=== PATIENT | female | born 1945 | race American Indian/Alaskan Native ===

== ENCOUNTER 2017-03-02 15:57 | Emergency (ER) | payer MEDICARE ==
[2017-03-02 16:52] LABS: Alanine Aminotransferase 8 units/L (7-56); Albumin/Globulin Ratio 0.9 %; Alkaline Phosphatase 71 units/L (35-129); Anion Gap 20 mmol/L; Blood Urea Nitrogen 10 mg/dL (7-17); Calcium 8.9 mg/dL (8.4-10.2); Carbon Dioxide 26 mmol/L (22-30); Glucose 320 mg/dL (65-100); Lipase 14 units/L (13-60); Potassium 4.2 mmol/L (3.6-5.0); Sodium 133 mmol/L (137-145); Total Protein 8.4 g/dL (6.3-8.2)
[2017-03-02 17:13] LABS: Hemoglobin 12.9 gm/dl (10.1-14.3); Mean Corpuscular HGB Conc 34 % (30-34); Mean Corpuscular Hemoglobin 29 pg (28-32); Mean Corpuscular Volume 87 fl (79-97); Platelet Count 232 K/mm3 (140-440); Red Blood Count 4.39 M/mm3 (3.65-5.03); White Blood Count 6.6 K/mm3 (4.5-11.0)
[2017-03-02 17:20] LABS: Basophils % (Auto) 0.5 % (0.0-1.8); Eosinophils % (Auto) 1.4 % (0.0-4.3)
[2017-03-02 17:22] LABS: INR 1.1 (0.87-1.13)
[2017-03-02 17:23] LABS: Partial Thromboplastin Time 31.9 Sec. (24.2-36.6)
--- NOTE | 2017-03-04 01:21 | ED Elopement Review ---
ED Pt Elopement review - Results review Lab results: Laboratory Tests 03/02/17 03/02/17 03/02/17 16:13 16:14 16:15 WBC 6.6 RBC 4.39 Hgb 12.9 Hct 38.0 MCV 87 MCH 29 MCHC 34 RDW 13.0 L Plt Count 232 Lymph % (Auto) 28.4 [place] % (Auto) 8.0 H Eos % (Auto) 1.4 Baso % (Auto) 0.5 Lymph # 1.9 [place] # 0.5 Eos # 0.1 Baso # 0.0 Total Counted Cancelled Seg Neutrophils % 61.7 Seg Neuts % (Manual) Cancelled Band Neutrophils % Cancelled Lymphocytes % (Manual) Cancelled Reactive Lymphs % (Man) Cancelled Monocytes % (Manual) Cancelled Eosinophils % (Manual) Cancelled Basophils % (Manual) Cancelled Metamyelocytes % Cancelled Myelocytes % Cancelled Promyelocytes % Cancelled Blast Cells % Cancelled Nucleated RBC % Cancelled Seg Neutrophils # 4.1 Seg Neutrophils # Man Cancelled Band Neutrophils # Cancelled Lymphocytes # (Manual) Cancelled Abs React Lymphs (Man) Cancelled Monocytes # (Manual) Cancelled Eosinophils # (Manual) Cancelled Basophils # (Manual) Cancelled Metamyelocytes # Cancelled Myelocytes # Cancelled Promyelocytes # Cancelled Blast Cells # Cancelled WBC Morphology Cancelled Hypersegmented Neuts Cancelled Hyposegmented Neuts Cancelled Hypogranular Neuts Cancelled Hypersegmented Polys Cancelled Smudge Cells Cancelled Toxic Granulation Cancelled Toxic Vacuolation Cancelled Dohle Bodies Cancelled Pelger-Huet Anomaly Cancelled Emily Rods Cancelled Platelet Estimate Cancelled Clumped Platelets Cancelled Plt Clumps, EDTA Cancelled Large Platelets Cancelled Giant Platelets Cancelled Platelet Satelliting Cancelled Plt Morphology Comment Cancelled RBC Morphology Cancelled Dimorphic RBCs Cancelled Polychromasia Cancelled Hypochromasia Cancelled Poikilocytosis Cancelled Basophilic Stippling Cancelled Anisocytosis Cancelled Microcytosis Cancelled Macrocytosis Cancelled Spherocytes Cancelled Pappenheimer Bodies Cancelled Sickle Cells Cancelled Target Cells Cancelled Tear Drop Cells Cancelled Ovalocytes Cancelled Stomatocytes Cancelled Helmet Cells Cancelled [place] Bodies Cancelled [place] Rings Cancelled [place] Cells Cancelled Bite Cells Cancelled Crenated Cell Cancelled Elliptocytes Cancelled Acanthocytes (Spur) Cancelled Rouleaux Cancelled Hemoglobin C Crystals Cancelled Schistocytes Cancelled Malaria parasites Cancelled Fredo Bodies Cancelled Hem Pathologist Commnt Cancelled PT INR APTT Sodium Potassium Chloride Carbon Dioxide Anion Gap BUN Creatinine Estimated GFR BUN/Creatinine Ratio Glucose POC Glucose 346 H Calcium Total Bilirubin AST ALT Alkaline Phosphatase Total Protein Albumin Albumin/Globulin Ratio Lipase Blood Type O POSITIVE Antibody Screen TNR JIMMY Antibody Screen Negative 03/02/17 03/02/17 16:15 16:15 WBC RBC Hgb Hct MCV MCH MCHC RDW Plt Count Lymph % (Auto) [place] % (Auto) Eos % (Auto) Baso % (Auto) Lymph # [place] # Eos # Baso # Total Counted Seg Neutrophils % Seg Neuts % (Manual) Band Neutrophils % Lymphocytes % (Manual) Reactive Lymphs % (Man) Monocytes % (Manual) Eosinophils % (Manual) Basophils % (Manual) Metamyelocytes % Myelocytes % Promyelocytes % Blast Cells % Nucleated RBC % Seg Neutrophils # Seg Neutrophils # Man Band Neutrophils # Lymphocytes # (Manual) Abs React Lymphs (Man) Monocytes # (Manual) Eosinophils # (Manual) Basophils # (Manual) Metamyelocytes # Myelocytes # Promyelocytes # Blast Cells # WBC Morphology Hypersegmented Neuts Hyposegmented Neuts Hypogranular Neuts Hypersegmented Polys Smudge Cells Toxic Granulation Toxic Vacuolation Dohle Bodies Pelger-Huet Anomaly Emily Rods Platelet Estimate Clumped Platelets Plt Clumps, EDTA Large Platelets Giant Platelets Platelet Satelliting Plt Morphology Comment RBC Morphology Dimorphic RBCs Polychromasia Hypochromasia Poikilocytosis Basophilic Stippling Anisocytosis Microcytosis Macrocytosis Spherocytes Pappenheimer Bodies Sickle Cells Target Cells Tear Drop Cells Ovalocytes Stomatocytes Helmet Cells [place] Bodies [place] Rings Zuleika Cells Bite Cells Crenated Cell Elliptocytes Acanthocytes (Spur) Rouleaux Hemoglobin C Crystals Schistocytes Malaria parasites Fredo Bodies Hem Pathologist Commnt PT 14.1 INR 1.10 APTT 31.9 Sodium 133 L Potassium 4.2 Chloride 91.0 L Carbon Dioxide 26 Anion Gap 20 BUN 10 Creatinine 0.8 Estimated GFR > 60 BUN/Creatinine Ratio 12.50 Glucose 320 H POC Glucose Calcium 8.9 Total Bilirubin 0.80 AST 11 ALT 8 Alkaline Phosphatase 71 Total Protein 8.4 H Albumin 4.0 Albumin/Globulin Ratio 0.9 Lipase 14 Blood Type Antibody Screen JIMMY Antibody Screen - Call Back decision Pt Call Back Decision: Pt to F/U with PMD
== END 2017-03-03 00:25 | disposition left against medical advice (07) ==
LOC: ED 15:57
DX: K92.1 Melena (principal); R10.9 Unspecified abdominal pain; E11.9 Type 2 diabetes mellitus without complications; I10 Essential (primary) hypertension; Z88.8 Allergy status to other drugs, medicaments and biological substances; Z53.21 Procedure and treatment not carried out due to patient leaving prior to being seen by health care provider
CPT/HCPCS: 36415; 80053; 82962; 83690; 85025; 85610; 85730; 86850; 86900; 86901

== ENCOUNTER 2018-07-22 05:55 | Day surgery (SDC) | payer MEDICARE ==
[2018-07-22] MEDS ORDERED: NACL 0.9% 1000 ML 1,000 ML IV SCH (05:58)
[2018-07-22] MEDS ORDERED: VERSED IV NR (07:08)
[2018-07-22] MEDS ORDERED: PEPCID IV NR (07:08)
[2018-07-22] MEDS ORDERED: XYLOCAINE MPF 2% ONE (07:54)
[2018-07-22] MEDS ORDERED: DIPRIVAN 10 MG/ML IV ONE (07:54)
[2018-07-22] MEDS ORDERED: SUBLIMAZE ONE (07:54)
--- NOTE | 2018-07-22 07:56 | Anesthesia Consultation ---
Anesthesia Consult and Med Hx Date of service: 07/22/18 - Airway Anesthetic Teeth Evaluation: Good (some missing teeth) ROM Head & Neck: Adequate Mental/Hyoid Distance: Adequate Mallampati Class: Class III Intubation Access Assessment: Possibly Difficult - Pre-Operative Health Status ASA Pre-Surgery Classification: ASA3 Proposed Anesthetic Plan: General - Pulmonary Hx Smoking: No Hx Asthma: Yes (NO MEDS) Hx Sleep Apnea: Yes (DX SLEEP APNEA , NO CPAP USE.) - Cardiovascular System Hx Hypertension: Yes (2002) Hx Coronary Artery Disease: Yes Hx Heart Attack/AMI: No (CABG 2002) - Central Nervous System Hx Back Pain: Yes (NECK AND BACK PAIN) - Endocrine Hx Insulin Dependent Diabetes: Yes Hx Hypothyroidism: Yes - Hematic Hx Anemia: Yes (NOT RECENT) - Other Systems Hx Cancer: No
--- NOTE | 2018-07-22 07:57 | Anesthesia Day of Surgery ---
Anesthesia Day of Surgery - Day of Surgery Patient Examined: Yes Patient H&P Reviewed: Yes Patient is NPO: Yes
[2018-07-22] MEDS ORDERED: WATER FOR IRRIG STERILE IR ONE (08:10)
[2018-07-22] MEDS ORDERED: OMNIPAQUE 300 MG/50 ML (CATH LAB) IV ONE (08:10)
[2018-07-22] MEDS ORDERED: ZOFRAN ONE (08:53)
[2018-07-22] MEDS ORDERED: ANCEF/STERILE WATER 2 GM/20 ML IV NR (09:00)
--- NOTE | 2018-07-22 09:00 | Post Operative Note ---
Date of procedure: 07/22/18 Pre-op diagnosis: cystitis Post-op diagnosis: same Findings: dec capacity imflamation Procedure: cysto rpgs bx Anesthesia: GETA Surgeon: EZIO GONGORA Estimated blood loss: none Pathology: list (bladder) Specimen disposition: to lab Condition: stable Disposition: PACU
--- NOTE | 2018-07-22 09:01 | Discharge Summary ---
Short Stay Discharge Plan Activity: other (no straining ) Weight Bearing Status: Full Weight Bearing Diet: low fat, low cholesterol, low salt Special Instructions: other (inc fluids ) Follow up with: JAI SCHROEDER MD [Primary Care Provider] - 7 Days EZIO GONGORA MD [Staff Physician] - 07/24/18
[2018-07-22] MEDS ORDERED: APRESOLINE IV PRN (09:24)
[2018-07-22] MEDS ORDERED: DILAUDID IV PRN (09:25)
--- NOTE | 2018-07-22 09:25 | Post Anesthesia Evaluation ---
- Post Anesthesia Evaluation Patient Participated: Yes Airway Patent: Yes Stable Respiratory Function: Yes Nausea/Vomiting: No Temp > 96.8F: Yes Pain Manageable: Yes Adequeate Hydration: Yes Anesthesia Complications: No
[2018-07-22] MEDS ORDERED: HumuLIN R IV ONE ×2 (10:00→10:23)
[2018-07-22] MEDS ORDERED: ZOFRAN IV PRN (10:30)
[2018-07-22] MEDS ORDERED: PHENERGAN PR PRN (11:24)
[2018-07-22] MEDS ORDERED: BENADRYL IV PRN (11:25)
--- NOTE | 2018-07-22 12:47 | Operative Report ---
PREOPERATIVE DIAGNOSIS: Chronic cystitis. POSTOPERATIVE DIAGNOSIS: Chronic cystitis. PROCEDURE: Cystoscopy, hydrodistention x 2, biopsy, retrograde. SURGEON: Anant Tan MD ANESTHESIA: General. FINDINGS: This is a woman with painful bladder symptoms and now presents for cystoscopy. All risks and implications discussed. DESCRIPTION OF PROCEDURE: The patient was brought to the operating room and placed on the operating table. Following induction of anesthesia, placed in lithotomy position, prepped and draped in usual sterile fashion. Cystourethroscopy showed cystitis cystica and glandularis throughout the bladder. Bladder was hydrodistended, tolerated 600-700 mL each time. There were no ulcers. There was no significant glomerulations. Retrograde showed good filling, good drainage bilaterally. No persistent filling defects. Small area of this erythema was biopsied, which did not look suspicious. The patient tolerated the procedure well. No significant complication. The area was cauterized, brought to recovery room. Padilla catheter in stable condition. JOB# [id number] LUIS/STACIE
[2018-07-22 15:08] VITALS: BP 149/72
--- NOTE | 2018-07-22 15:12 | Fluoroscopy Report ---
FLUOROSCOPY RETROGRADE UROGRAPHY: HISTORY: Interstitial cystitis. FINDINGS: Fluoroscopy was provided by radiology during retrograde urography by the urologist. 6 fluoroscopic images were captured. There is adequate filling of the ureters and intrarenal collecting systems with no filling defects or anatomic abnormalities identified. Bladder biopsy of the posterior wall was performed per the operative notes. Please correlate with the procedural report if needed. IMPRESSION: Retrograde pyelograms within normal limits.
== END 2018-07-22 14:40 | disposition home or self-care (01) ==
LOC: OR 05:55
PROVIDERS: ATTEND Urology
DX: N30.10 Interstitial cystitis (chronic) without hematuria (principal); N30.30 Trigonitis without hematuria; I25.10 Atherosclerotic heart disease of native coronary artery without angina pectoris; E78.00 Pure hypercholesterolemia, unspecified; E03.9 Hypothyroidism, unspecified; E11.9 Type 2 diabetes mellitus without complications; M19.90 Unspecified osteoarthritis, unspecified site; D64.9 Anemia, unspecified; I11.0 Hypertensive heart disease with heart failure; I50.9 Heart failure, unspecified; J45.909 Unspecified asthma, uncomplicated; G43.909 Migraine, unspecified, not intractable, without status migrainosus; G47.30 Sleep apnea, unspecified; K21.9 Gastro-esophageal reflux disease without esophagitis; Z79.4 Long term (current) use of insulin; Z79.899 Other long term (current) drug therapy; Z88.1 Allergy status to other antibiotic agents; Z88.8 Allergy status to other drugs, medicaments and biological substances; Z98.51 Tubal ligation status; Z90.710 Acquired absence of both cervix and uterus; Z98.890 Other specified postprocedural states
CPT/HCPCS: 52204; 52260; 74420; 82803; 82962; 88305; C1758; J0360; J1170; J1200; J2250; J2405; J2704; J3010; J7030; Q9967; J1815

== ENCOUNTER 2018-09-03 03:29 | Emergency (ER) | payer MEDICARE ==
--- NOTE | 2018-09-03 04:29 | XRay Report ---
FINAL REPORT EXAM: XR CHEST ROUTINE 2V HISTORY: Shortness of breath TECHNIQUE: PA and lateral chest radiographs PRIORS: None. FINDINGS: No mediastinal shift. Mild cardiomegaly. Overlying sternotomy wires. No pneumothorax, effusion, or fo gely pulmonary opacity. No acute skeletal finding. IMPRESSION: No focal pulmonary opacity.
[2018-09-03 04:58] LABS: Hematocrit 44.1 % (30.3-42.9); Hemoglobin 14.8 gm/dl (10.1-14.3); Mean Corpuscular HGB Conc 34 % (30-34); Mean Corpuscular Volume 85 fl (79-97); Red Cell Distribution Width 15.1 % (13.2-15.2)
[2018-09-03 04:59] LABS: Platelet Count 155 K/mm3 (140-440)
[2018-09-03 05:05] LABS: BUN/Creatinine Ratio 10; Blood Urea Nitrogen 7 mg/dL (7-17); Calcium 8.5 mg/dL (8.4-10.2)
[2018-09-03 05:06] LABS: Hemolysis Index 140
[2018-09-03 07:27] LABS: Band Neutrophils # (Manual) 0.2 K/mm3; Basophils % (Manual) 0 % (0.0-1.8); Total Cells Counted 100
[2018-09-03 07:28] LABS: Anisocytosis 1+; Ovalocytes 1+
[2018-09-03] MEDS ORDERED: LASIX IV ONE (08:33)
[2018-09-03 08:44] VITALS: BP 150/76
--- NOTE | 2018-09-03 09:22 | Emergency Department Report ---
ED Shortness of Breath HPI - General Chief Complaint: Dyspnea/Respdistress Stated Complaint: SOB Time Seen by Provider: 09/03/18 08:31 Source: patient Mode of arrival: Ambulatory Limitations: No Limitations - History of Present Illness MD Complaint: shortness of breath, cough -: days(s) (3) Severity: moderate Consistency: constant Improves With: oxygen (once she arrived to the hospital) Worsens With: lying flat, exertion Known History Of: congestive heart failure Context: other (patient states that she was taking care of her grandchildren last week and her oldest grandchild had a upper respiratory infection. Patient states that the grandchild is now well however she is continued to cough.) Associated Symptoms: cough, sputum production (clear-yellow) - Related Data Home Oxygen Therapy: No Home Medications Medication Instructions Recorded Confirmed Last Taken Insulin Glargine,Hum.rec.anlog 50 units SQ QHS 03/05/18 07/17/18 07/21/18 [Toujeo Solostar] Levothyroxine [Synthroid] 125 mcg PO QAM 03/05/18 07/17/18 07/21/18 Losartan [Cozaar] 50 mg PO QDAY 03/05/18 07/17/18 07/21/18 Sitagliptin Phosphate [Januvia] 50 mg PO DAILY 03/05/18 07/17/18 07/21/18 Travoprost [Travatan Z] 1 drop OP DAILY 03/05/18 07/17/18 07/21/18 Nitrofurantoin Macrocrystal 100 mg PO DAILY 07/17/18 07/22/18 3 Weeks Ago [Macrodantin] ~07/01/18 Liraglutide [Victoza 2-Guero] 0.6 mg SUB-Q DAILY 07/22/18 07/22/18 07/21/18 Previous Rx's Medication Instructions Recorded Last Taken Type Benzonatate [Tessalon Perles] 100 mg PO Q8HR #10 capsule 09/03/18 Unknown Rx Furosemide [Lasix] 40 mg PO PRN PRN #30 tablet 09/03/18 Unknown Rx Allergies Allergy/AdvReac Type Severity Reaction Status Date / Time albuterol AdvReac CHEST PAIN Verified 03/05/18 13:42 atenolol AdvReac CHEST PAIN Unverified 03/05/18 13:41 ciprofloxacin [From Cipro] AdvReac ANXIETY Verified 03/05/18 13:42 insulin detemir AdvReac DECREASED Unverified 03/05/18 13:41 [From Levemir] VISION metformin AdvReac Unknown Verified 07/22/18 12:23 ED Review of Systems ROS: Stated complaint: SOB Other details as noted in HPI Comment: All other systems reviewed and negative ED Past Medical Hx - Past Medical History Hx Hypertension: Yes (2002) Hx Heart Attack/AMI: No (CABG 2002) Hx Congestive Heart Failure: Yes Hx Diabetes: Yes Hx GERD: Yes Hx Arthritis: Yes Hx Headaches / Migraines: Yes (MIGRAINES - NOT RECENT) Hx Asthma: Yes (NO MEDS) Hx Tuberculosis: Yes (POSITIVE SKIN TEST,NO TX,NEG CXR ( TEENAGER)) Hx HIV: No - Surgical History Past Surgical History?: Yes Hx Open Heart Surgery: Yes (CABG 2002) Additional Surgical History: tubal ligation. hyster - Social History Smoking Status: Never Smoker Substance Use Type: None - Medications Home Medications: Home Medications Medication Instructions Recorded Confirmed Last Taken Type Insulin Glargine,Hum.rec.anlog 50 units SQ QHS 03/05/18 07/17/18 07/21/18 History [Toujeo Solostar] Levothyroxine [Synthroid] 125 mcg PO QAM 03/05/18 07/17/18 07/21/18 History Losartan [Cozaar] 50 mg PO QDAY 03/05/18 07/17/18 07/21/18 History Sitagliptin Phosphate [Januvia] 50 mg PO DAILY 03/05/18 07/17/18 07/21/18 History Travoprost [Travatan Z] 1 drop OP DAILY 03/05/18 07/17/18 07/21/18 History Nitrofurantoin Macrocrystal 100 mg PO DAILY 07/17/18 07/22/18 3 Weeks Ago History [Macrodantin] ~07/01/18 Liraglutide [Victoza 2-Guero] 0.6 mg SUB-Q DAILY 07/22/18 07/22/18 07/21/18 History Benzonatate [Tessalon Perles] 100 mg PO Q8HR #10 capsule 09/03/18 Unknown Rx Furosemide [Lasix] 40 mg PO PRN PRN #30 tablet 09/03/18 Unknown Rx ED Physical Exam - General Limitations: No Limitations General appearance: alert, in no apparent distress - Head Head exam: Present: atraumatic, normocephalic - Eye Eye exam: Present: normal appearance - ENT ENT exam: Present: mucous membranes moist - Neck Neck exam: Present: normal inspection - Respiratory Respiratory exam: Present: rales (bibasilar). Absent: normal lung sounds bilaterally, respiratory distress, wheezes, rhonchi - Cardiovascular Cardiovascular Exam: Present: regular rate, normal rhythm, normal heart sounds. Absent: systolic murmur, diastolic murmur, rubs, gallop - GI/Abdominal GI/Abdominal exam: Present: soft, normal bowel sounds. Absent: distended, tenderness, guarding, rebound - Extremities Exam Extremities exam: Present: normal inspection, full ROM, joint swelling (+1 ankle swelling) - Back Exam Back exam: Present: normal inspection - Neurological Exam Neurological exam: Present: alert, oriented X3 - Psychiatric Psychiatric exam: Present: normal affect, normal mood - Skin Skin exam: Present: warm, dry, intact, normal color. Absent: rash ED Course Vital Signs 09/03/18 09/03/18 09/03/18 03:44 04:18 04:24 Temperature 97.5 F L 98.1 F Pulse Rate 86 62 Respiratory 20 19 28 H Rate Blood Pressure Blood Pressure 183/62 [Left] O2 Sat by Pulse 95 93 Oximetry 09/03/18 09/03/18 09/03/18 04:47 05:00 06:09 Temperature Pulse Rate 60 Respiratory 28 H 25 H Rate Blood Pressure 183/62 177/77 Blood Pressure [Left] O2 Sat by Pulse 97 94 Oximetry 09/03/18 08:00 Temperature Pulse Rate 58 L Respiratory 23 Rate Blood Pressure 150/76 Blood Pressure [Left] O2 Sat by Pulse 95 Oximetry ED Medical Decision Making - Lab Data Result diagrams: 09/03/18 04:04 09/03/18 04:04 Lab Results 09/03/18 09/03/18 Range/Units 04:04 04:04 WBC 7.0 (4.5-11.0) K/mm3 RBC 5.20 H (3.65-5.03) M/mm3 Hgb 14.8 H (10.1-14.3) gm/dl Hct 44.1 H (30.3-42.9) % MCV 85 (79-97) fl MCH 28 (28-32) pg MCHC 34 (30-34) % RDW 15.1 (13.2-15.2) % Plt Count 155 (140-440) K/mm3 Add Manual Diff Complete Total Counted 100 Seg Neuts % (Manual) 56.0 (40.0-70.0) % Band Neutrophils % 3.0 % Lymphocytes % (Manual) 27.0 (13.4-35.0) % Reactive Lymphs % (Man) 1.0 % Monocytes % (Manual) 9.0 H (0.0-7.3) % Eosinophils % (Manual) 4.0 (0.0-4.3) % Basophils % (Manual) 0 (0.0-1.8) % Metamyelocytes % 0 % Myelocytes % 0 % Promyelocytes % 0 % Blast Cells % 0 % Nucleated RBC % Not Reportable Seg Neutrophils # Man 3.9 (1.8-7.7) K/mm3 Band Neutrophils # 0.2 K/mm3 Lymphocytes # (Manual) 1.9 (1.2-5.4) K/mm3 Abs React Lymphs (Man) 0.1 K/mm3 Monocytes # (Manual) 0.6 (0.0-0.8) K/mm3 Eosinophils # (Manual) 0.3 (0.0-0.4) K/mm3 Basophils # (Manual) 0.0 (0.0-0.1) K/mm3 Metamyelocytes # 0.0 K/mm3 Myelocytes # 0.0 K/mm3 Promyelocytes # 0.0 K/mm3 Blast Cells # 0.0 K/mm3 WBC Morphology Not Reportable Hypersegmented Neuts Not Reportable Hyposegmented Neuts Not Reportable Hypogranular Neuts Not Reportable Smudge Cells Not Reportable Toxic Granulation Not Reportable Toxic Vacuolation Not Reportable Dohle Bodies Not Reportable Pelger-Huet Anomaly Not Reportable Emily Rods Not Reportable Platelet Estimate Appears normal Clumped Platelets Not Reportable Plt Clumps, EDTA Not Reportable Large Platelets Not Reportable Giant Platelets Not Reportable Platelet Satelliting Not Reportable Plt Morphology Comment Not Reportable RBC Morphology Not Reportable Dimorphic RBCs Not Reportable Polychromasia Not Reportable Hypochromasia Not Reportable Poikilocytosis Not Reportable Anisocytosis 1+ Microcytosis Not Reportable Macrocytosis Not Reportable Spherocytes Not Reportable Pappenheimer Bodies Not Reportable Sickle Cells Not Reportable Target Cells Not Reportable Tear Drop Cells Not Reportable Ovalocytes 1+ Helmet Cells Not Reportable [place] Bodies Not Reportable [place] Rings Not Reportable [place] Cells Not Reportable Bite Cells Not Reportable Crenated Cell Not Reportable Elliptocytes Not Reportable Acanthocytes (Spur) Not Reportable Rouleaux Not Reportable Hemoglobin C Crystals Not Reportable Schistocytes Not Reportable Malaria parasites Not Reportable Fredo Bodies Not Reportable Hem Pathologist Commnt No Sodium 133 L (137-145) mmol/L Potassium 5.2 H (3.6-5.0) mmol/L Chloride 99.7 (98-107) mmol/L Carbon Dioxide 23 (22-30) mmol/L Anion Gap 16 mmol/L BUN 7 (7-17) mg/dL Creatinine 0.7 (0.7-1.2) mg/dL Estimated GFR > 60 ml/min BUN/Creatinine Ratio 10 % Glucose 377 H (65-100) mg/dL Calcium 8.5 (8.4-10.2) mg/dL NT-Pro-B Natriuret Pep 1104 H (0-900) pg/mL - Medical Decision Making Pts diuresed and was feeling better. pt ambulated without desaturation Critical care attestation.: If time is entered above; I have spent that time in minutes in the direct care of this critically ill patient, excluding procedure time. ED Disposition Clinical Impression: Upper respiratory infection Qualifiers: URI type: unspecified viral URI Qualified Code(s): J06.9 - Acute upper respiratory infection, unspecified Congestive heart failure Qualifiers: Heart failure type: combined systolic and diastolic Heart failure chronicity: acute on chronic Qualified Code(s): I50.43 - Acute on chronic combined systolic (congestive) and diastolic (congestive) heart failure Disposition: TO HOME OR SELFCARE Is pt being admited?: No Does the pt Need Aspirin: No Condition: Stable Instructions: Heart Failure (ED), Upper Respiratory Infection (ED) Prescriptions: Furosemide [Lasix] 40 mg PO PRN PRN #30 tablet PRN Reason: Edema Referrals: JJ HERNANDEZ MD [Primary Care Provider] - 3-5 Days Time of Disposition: 10:53
== END 2018-09-03 11:17 | disposition home or self-care (01) ==
LOC: ED 03:29
DX: J06.9 Acute upper respiratory infection, unspecified (principal); I50.43 Acute on chronic combined systolic (congestive) and diastolic (congestive) heart failure; I11.0 Hypertensive heart disease with heart failure; E11.9 Type 2 diabetes mellitus without complications; K21.9 Gastro-esophageal reflux disease without esophagitis; G43.909 Migraine, unspecified, not intractable, without status migrainosus; J45.909 Unspecified asthma, uncomplicated; Z95.1 Presence of aortocoronary bypass graft; Z90.710 Acquired absence of both cervix and uterus; Z98.51 Tubal ligation status; Z79.899 Other long term (current) drug therapy; Z88.8 Allergy status to other drugs, medicaments and biological substances; Z88.1 Allergy status to other antibiotic agents; Z88.4 Allergy status to anesthetic agent
CPT/HCPCS: 36415; 71046; 80048; 83880; 85007; 85025; 93005; 93010; 96374; 99284; J1940

== ENCOUNTER 2021-11-30 00:32 | Inpatient (IN) | payer MEDICARE ==
[2021-11-30] MEDS ORDERED: SODIUM CHLORIDE 0.9% 500 ML 500 ML IV ONE (00:38)
--- NOTE | 2021-11-30 01:04 | XRay Report ---
CHEST 1 VIEW 11/30/2021 12:45 AM INDICATION / CLINICAL INFORMATION: Syncope. COMPARISON: 2 views of the chest from 09/03/2018. FINDINGS: SUPPORT DEVICES: None. HEART / MEDIASTINUM: Normal size of the cardiac silhouette with sternotomy changes. LUNGS / PLEURA: There are bibasilar opacities with otherwise clear lungs. No significant pleural effu amanda. No pneumothorax. ADDITIONAL FINDINGS: No significant additional findings. IMPRESSION: Bibasilar opacities are favored to represent atelectasis. Please correlate with the clinical findings to exclude pneumonia. Signer Name: Jimy Fregoso MD Signed: 11/30/2021 12:59 AM Workstation Name: [id number]
[2021-11-30 01:13] LABS: Basophils % (Auto) 0.3 % (0.0-1.8); Eosinophils % (Auto) 0.2 % (0.0-4.3); Hematocrit 44.4 % (30.3-42.9); Hemoglobin 14.7 gm/dl (10.1-14.3); Lymphocytes # (Auto) 0.7 K/mm3 (1.2-5.4); Lymphocytes % (Auto) 12.1 % (13.4-35.0); Mean Corpuscular HGB Conc 33 % (30-34); Mean Corpuscular Volume 89 fl (79-97); Monocytes # (Auto) 0.4 K/mm3 (0.0-0.8); Monocytes % (Auto) 7.3 % (0.0-7.3); Platelet Count 177 K/mm3 (140-440); Red Blood Count 4.98 M/mm3 (3.65-5.03); Red Cell Distribution Width 14.1 % (13.2-15.2)
[2021-11-30 01:29] LABS: Creatine Kinase MB 3.5 ng/mL (0.0-4.0)
[2021-11-30 01:30] LABS: Albumin 4.2 g/dL (3.9-5); Calcium 9.5 mg/dL (8.4-10.2)
--- NOTE | 2021-11-30 01:32 | Cat Scan Report ---
CT HEAD WITHOUT CONTRAST INDICATION / CLINICAL INFORMATION: Syncope. TECHNIQUE: All CT scans at this location are performed using CT dose reduction for ALARA by means of automated exposure control. COMPARISON: None available. FINDINGS: BRAIN PARENCHYMA: No acute intracranial hemorrhage. No evidence of recent infarct. No mass effect or midline shift. Areas of low attenuation along the periventricular white matter likely representing ch ronic microvascular ischemic changes. There are bilateral basal ganglial calcifications. VENTRICULAR SYSTEM/EXTRA-AXIAL SPACES: Generalized atrophy is noted with mild enlargement of the vent ricles. No extra-axial fluid collection. ORBITS: Normal as visualized. SKELETAL SYSTEM/SOFT TISSUES: Normal bones and soft tissues. PARANASAL SINUSES/MASTOID AIR CELLS: No significant abnormality. ADDITIONAL FINDINGS: There is severe generalized intracranial atherosclerosis. IMPRESSION: 1. No acute intracranial abnormality. 2. Additional chronic changes as above. Signer Name: Jimy Fregoso MD Signed: 11/30/2021 1:28 AM Workstation Name: [id number]
[2021-11-30] MEDS ORDERED: INSULIN REGULAR, HUMAN 100 UNITS/1 ML IV ONE (02:04)
[2021-11-30] MEDS ORDERED: cloNIDine 0.1 MG TAB PO ONE (02:12)
[2021-11-30 02:25] LABS: Bilirubin,Urine NEG (Negative); Blood,Urine MOD (Negative); Color,Urine Straw (Yellow); Protein,Urine <15 mg/dL mg/dL (Negative); Urobilinogen,Urine < 2.0 mg/dL (<2.0)
--- NOTE | 2021-11-30 02:45 | Emergency Department Report ---
ED Fall HPI - General Chief Complaint: Fall Stated Complaint: HIGH BLOOD SUGAR Time Seen by Provider: 11/30/21 00:38 Source: family, EMS Mode of arrival: Stretcher - History of Present Illness Initial Comments: Patients son states that the patient has been disoriented today, fell and hit head, denies LOC, denies blood thinner use. EMS states glucose check is >500 MD Complaint: fall -: Sudden, hour(s) Fall From: standing Fall Witnessed: yes, by family Place Fall Occurred: street Loss of Consciousness: none - Related Data Home Medications Medication Instructions Recorded Confirmed Last Taken Insulin Glargine,Hum.rec.anlog 50 units SQ QHS 03/05/18 07/17/18 07/21/18 [Toujeo Solostar] Levothyroxine [Synthroid] 125 mcg PO QAM 03/05/18 07/17/18 07/21/18 Losartan [Cozaar] 50 mg PO QDAY 03/05/18 07/17/18 07/21/18 Sitagliptin Phosphate [Januvia] 50 mg PO DAILY 03/05/18 07/17/18 07/21/18 Travoprost (Nf) [Travatan Z] 1 drop OP DAILY 03/05/18 07/17/18 07/21/18 Nitrofurantoin Macrocrystal 100 mg PO DAILY 07/17/18 07/22/18 3 Weeks Ago [Macrodantin] ~07/01/18 Liraglutide [Victoza 2-Guero] 0.6 mg SUB-Q DAILY 07/22/18 07/22/18 07/21/18 Previous Rx's Medication Instructions Recorded Last Taken Type Benzonatate [Tessalon Perles] 100 mg PO Q8HR #10 capsule 09/03/18 Unknown Rx Furosemide [Lasix] 40 mg PO PRN PRN #30 tablet 09/03/18 Unknown Rx Allergies Allergy/AdvReac Type Severity Reaction Status Date / Time albuterol AdvReac CHEST PAIN Verified 03/05/18 13:42 atenolol AdvReac CHEST PAIN Verified 11/30/21 01:33 ciprofloxacin [From Cipro] AdvReac ANXIETY Verified 03/05/18 13:42 ibuprofen AdvReac Rash Verified 11/30/21 01:34 insulin detemir AdvReac DECREASED Verified 04/27/22 01:33 [From Levemir] VISION metformin AdvReac Unknown Verified 07/22/18 12:23 ED Review of Systems ROS: Stated complaint: HIGH BLOOD SUGAR Other details as noted in HPI Constitutional: denies: chills, fever Eyes: denies: eye pain, eye discharge, vision change ENT: denies: ear pain, throat pain Respiratory: denies: cough, shortness of breath, wheezing Cardiovascular: denies: chest pain, palpitations Endocrine: no symptoms reported Gastrointestinal: denies: abdominal pain, nausea, diarrhea Genitourinary: denies: urgency, dysuria, discharge Musculoskeletal: denies: back pain, joint swelling, arthralgia Skin: denies: rash, lesions Neurological: denies: headache, weakness, paresthesias Psychiatric: denies: anxiety, depression Hematological/Lymphatic: denies: easy bleeding, easy bruising ED Past Medical Hx - Past Medical History Hx Hypertension: Yes (2002) Hx Heart Attack/AMI: No (CABG 2002) Hx Congestive Heart Failure: Yes Hx Diabetes: Yes Hx GERD: Yes Hx Arthritis: Yes Hx Headaches / Migraines: Yes (MIGRAINES - NOT RECENT) Hx Asthma: Yes (NO MEDS) Hx Tuberculosis: Yes (POSITIVE SKIN TEST,NO TX,NEG CXR ( TEENAGER)) Hx HIV: No - Surgical History Hx Open Heart Surgery: Yes (CABG 2002) Additional Surgical History: tubal ligation. hyster - Social History Smoking Status: Never Smoker - Medications Home Medications: Home Medications Medication Instructions Recorded Confirmed Last Taken Type Insulin Glargine,Hum.rec.anlog 50 units SQ QHS 03/05/18 07/17/18 07/21/18 His tory [Toujeo Solostar] Levothyroxine [Synthroid] 125 mcg PO QAM 03/05/18 07/17/18 07/21/18 History Losartan [Cozaar] 50 mg PO QDAY 03/05/18 07/17/18 07/21/18 History Sitagliptin Phosphate [Januvia] 50 mg PO DAILY 03/05/18 07/17/18 07/21/18 History Travoprost (Nf) [Travatan Z] 1 drop OP DAILY 03/05/18 07/17/18 07/21/18 History Nitrofurantoin Macrocrystal 100 mg PO DAILY 07/17/18 07/22/18 3 Weeks Ago History [Macrodantin] ~07/01/18 Liraglutide [Victoza 2-Guero] 0.6 mg SUB-Q DAILY 07/22/18 07/22/18 07/21/18 History Benzonatate [Tessalon Perles] 100 mg PO Q8HR #10 capsule 09/03/18 Unknown Rx Furosemide [Lasix] 40 mg PO PRN PRN #30 tablet 09/03/18 Unknown Rx ED Physical Exam - General Limitations: No Limitations General appearance: alert, in no apparent distress - Head Head exam: Present: atraumatic, normocephalic - Eye Eye exam: Present: normal appearance - ENT ENT exam: Present: mucous membranes moist - Neck Neck exam: Present: normal inspection - Respiratory Respiratory exam: Present: normal lung sounds bilaterally. Absent: respiratory distress - Cardiovascular Cardiovascular Exam: Present: regular rate, normal rhythm. Absent: systolic murmur, diastolic murmur, rubs, gallop - GI/Abdominal GI/Abdominal exam: Present: soft, normal bowel sounds - Extremities Exam Extremities exam: Present: normal inspection - Back Exam Back exam: Present: normal inspection - Neurological Exam Neurological exam: Present: alert, oriented X3 - Psychiatric Psychiatric exam: Present: normal affect, normal mood - Skin Skin exam: Present: warm, dry, intact, normal color. Absent: rash ED Course Vital Signs 11/30/21 11/30/21 11/30/21 00:38 00:47 01:00 Temperature 98.7 F Pulse Rate 58 L 62 Respiratory 18 14 Rate Blood Pressure 198/71 198/71 O2 Sat by Pulse 99 97 Oximetry 11/30/21 11/30/21 11/30/21 01:24 01:30 01:41 Temperature Pulse Rate 62 55 L Respiratory 21 17 18 Rate Blood Pressure 200/83 O2 Sat by Pulse 98 98 Oximetry ED Medical Decision Making - Lab Data Result diagrams: 11/30/21 01:04 11/30/21 01:04 - EKG Data -: EKG Interpreted by Me - EKG Data Interpretation: nonspecific ST-T wave darnell - Radiology Data Radiology results: report reviewed, image reviewed Critical care attestation.: If time is entered above; I have spent that time in minutes in the direct care of this critically ill patient, excluding procedure time. ED Disposition Clinical Impression: Fall, Hyperglycemia Disposition: ADMITTED INPATIENT Is pt being admited?: Yes Does the pt Need Aspirin: No Condition: Stable Referrals: PRIMARY CARE, [Primary Care Provider] - 3-5 Days
[2021-11-30] MEDS ORDERED: MAGNESIUM HYDROXIDE (MOM) ORAL LIQD UDC PO PRN (03:54)
[2021-11-30] MEDS ORDERED: DEXTROSE 50% IN WATER (25GM) 50 ML SYRINGE IV PRN ×2 (03:54→16:30)
[2021-11-30] MEDS ORDERED: ONDANSETRON 4 MG/2 ML INJ IV PRN (03:54)
[2021-11-30] MEDS ORDERED: ACETAMINOPHEN 325 MG TAB PO PRN (03:54)
[2021-11-30] MEDS ORDERED: MORPHINE 4 MG/1 ML INJ IV PRN (03:54)
[2021-11-30] MEDS ORDERED: MORPHINE 2 MG/1 ML INJ IV PRN (03:54)
[2021-11-30] MEDS ORDERED: SODIUM CHLORIDE 0.9% 1000 ML 1,000 ML IV SCH (04:00)
[2021-11-30] MEDS ORDERED: D5W/0.45% NACL/KCL 20 MEQ 20 MEQ/1,000 ML BAG IV SCH (04:00)
[2021-11-30] MEDS ORDERED: INSULIN REGULAR, HUMAN 100 UNITS in SODIUM CHLORIDE 0.9% 99 ML IV SCH (04:00)
--- NOTE | 2021-11-30 04:04 | History and Physical Report ---
History of Present Illness Date of examination: 11/30/21 Date of admission: 11/30/2021 Chief complaint: Syncope History of present illness: 76-year-old -[place] female with known history of hypertension, diabetes mellitus and GERD brought into the emergency room today after having a fall. Patient was said to have been disoriented today and fell hitting the back of her head. She denies any injury to the head, denies any headache and denies any blurry vision. She denies any loss of consciousness. Blood glucose check on the field by EMS was said to be greater than 500. Work-up in the emergency room today, CT scan of the head was unremarkable, chest x-ray shows atelectasis bilaterally. Lab reveals blood glucose of 720, sodium of 133. Small amount of ketone. Hemoglobin 14.7 and hematocrit 44.4. Patient has been started on IV fluid and insulin drip. Past History Past Medical History: diabetes, GERD, hypertension, other (Migraines.Asthma) Past Surgical History: CABG, hysterectomy, Other (Tubal ligation) Social history: no significant social history Family history: no significant family history Medications and Allergies Allergies Allergy/AdvReac Type Severity Reaction Status Date / Time albuterol AdvReac CHEST PAIN Verified 03/05/18 13:42 atenolol AdvReac CHEST PAIN Verified 11/30/21 01:33 ciprofloxacin [From Cipro] AdvReac ANXIETY Verified 03/05/18 13:42 ibuprofen AdvReac Rash Verified 11/30/21 01:34 insulin detemir AdvReac DECREASED Verified 11/30/21 01:33 [From Levemir] VISION metformin AdvReac Unknown Verified 07/22/18 12:23 Home Medications Medication Instructions Recorded Confirmed Last Taken Type Insulin Glargine,Hum.rec.anlog 50 units SQ QHS 03/05/18 07/17/18 07/21/18 History [Toujeo Solostar] Levothyroxine [Synthroid] 125 mcg PO QAM 03/05/18 07/17/18 07/21/18 History Losartan [Cozaar] 50 mg PO QDAY 03/05/18 07/17/18 07/21/18 History Sitagliptin Phosphate [Januvia] 50 mg PO DAILY 03/05/18 07/17/18 07/21/18 History Travoprost (Nf) [Travatan Z] 1 drop OP DAILY 03/05/18 07/17/18 07/21/18 History Nitrofurantoin Macrocrystal 100 mg PO DAILY 07/17/18 07/22/18 3 Weeks Ago History [Macrodantin] ~07/01/18 Liraglutide [Victoza 2-Guero] 0.6 mg SUB-Q DAILY 07/22/18 07/22/18 07/21/18 History Benzonatate [Tessalon Perles] 100 mg PO Q8HR #10 capsule 09/03/18 Unknown Rx Furosemide [Lasix] 40 mg PO PRN PRN #30 tablet 09/03/18 Unknown Rx Review of Systems Constitutional: no fever, no chills Ears, nose, mouth and throat: no nasal congestion, no sore throat Cardiovascular: no chest pain, no palpitations Respiratory: no cough, no shortness of breath Gastrointestinal: no abdominal pain, no nausea, no vomiting, no diarrhea Genitourinary Female: no pelvic pain, no flank pain, no dysuria, no hematuria Musculoskeletal: no neck pain, no low back pain Integumentary: no rash, no pruritis Neurological: no headaches, no confusion Psychiatric: no anxiety, no depression Endocrine: no polyphagia, no polydipsia, no polyuria, no nocturia Exam - Constitutional Vitals: Temp Pulse Resp BP Pulse Ox 98.7 F 55 L 18 200/83 98 11/30/21 00:38 11/30/21 01:30 11/30/21 01:41 11/30/21 01:30 11/30/21 01:41 General appearance: Present: no acute distress, well-nourished, other (Dry oral mucosa) - EENT Eyes: Present: PERRL, EOM intact. Absent: scleral icterus ENT: hearing intact, clear oral mucosa, dentition normal - Neck Neck: Present: supple, normal ROM - Respiratory Respiratory effort: normal Respiratory: bilateral: CTA - Cardiovascular Rhythm: regular Heart Sounds: Present: S1 & S2. Absent: gallop, systolic murmur, diastolic murmur, rub, click - Extremities Extremities: no ischemia, pulses intact, pulses symmetrical, No edema, normal temperature, normal color, Full ROM Peripheral Pulses: within normal limits - Abdominal General gastrointestinal: Present: soft, non-tender, non-distended, normal bowel sounds. Absent: mass - Integumentary Integumentary: Present: clear, warm, dry, normal turgor. Absent: rash - Musculoskeletal Musculoskeletal: strength equal bilaterally - Psychiatric Psychiatric: appropriate mood/affect, intact judgment & insight, memory intact, cooperative - Neurologic Neurologic: CNII-XII intact, no focal deficits, moves all extremities HEART Score - HEART Score Troponin: Troponin T < 0.010 ng/mL (0.00-0.029) 11/30/21 01:04 Results - Labs CBC & Chem 7: 11/30/21 01:04 11/30/21 01:04 Labs: Abnormal lab results 11/30/21 11/30/21 Range/Units 01:04 01:04 Hgb 14.7 H (10.1-14.3) gm/dl Hct 44.4 H (30.3-42.9) % Lymph % (Auto) 12.1 L (13.4-35.0) % Lymph # (Auto) 0.7 L (1.2-5.4) K/mm3 Seg Neutrophils % 80.1 H (40.0-70.0) % Sodium 133 L (137-145) mmol/L Potassium 5.1 H (3.6-5.0) mmol/L Chloride 91.7 L (98-107) mmol/L Glucose 720 H* (65-100) mg/dL Assessment and Plan - Patient Problems (1) Hyperglycemia Current Visit: Yes Status: Acute Plan to address problem: Patient in mild DKA. Patient placed on IV fluid and insulin drip. She will be closely monitored in the intensive care unit. We will monitor Accu-Cheks closely. (2) Fall Current Visit: Yes Status: Acute Plan to address problem: Will place on fall precautions. (3) DVT prophylaxis Current Visit: Yes Status: Acute Plan to address problem: Patient placed on subcutaneous heparin. (4) Full code status Current Visit: Yes Status: Acute Plan to address problem: Patient is full code.
[2021-11-30] MEDS ORDERED: SODIUM CHLORIDE 0.9% 1000 ML 1,000 ML IV ONE (07:46)
[2021-11-30 08:58] LABS: Calcium 10.1 mg/dL (8.4-10.2)
[2021-11-30] MEDS ORDERED: FAMOTIDINE 20 MG/2 ML INJ IV SCH (10:00)
[2021-11-30] MEDS ORDERED: LACTATED RINGERS 1,000 ML IV ONE (11:15)
--- NOTE | 2021-11-30 11:16 | Event Note ---
<BOLA ROSS - Last Filed: 11/30/21 19:04> Date: 11/30/21 This is a 76-year-old AA female with known past medical history of HTN, HF, DM, and GERD admitted for AMS, s/p Fall at home, and Hyperglycemia requiring insulin gtt. Patient was seen and examined at the bedside. Patient remains alerted but pleasantly confused. She is only alert and oriented to self and placed, remains stable on RA. Patient's BG improved on insulin gtt. Per RN patient is with delayed swallowing, speech eval was completed and they recommended Pureed diet with thin liquids. Will transition patient to SSI and basal insulin. Will also consult Neurology for encephalopathy. Thorough discussion with patient's son, Omari Marques at the bedside, in regards to patient's condition and plan of care. Per patient's son, patient's has been having periods of confusion on and off for the past 2 to 3 months since patient remained self-sufficient and continued to take care of herself family assumed it was related to aging until she fell and hit her head recently then they decided to bring her to hospital for further evaluation. He also reported that patient is only on Lantus at home which she has taken for the past 2 to 3 months due to issues with her pharmacy. All questions and concerns were addressed at this time. Patient's son verbalized understanding of the info provided and agreed with the current plan of care. D/w CCM patient is stable for transfer to Telemetry once off insulin gtt. <MOSES NAQVI - Last Filed: 12/01/21 07:18> I saw and evaluated the patient. I agree with the findings and the plan of care as documented in the Nurse Practitioner's~note, with the following corrections and additions. VITAL SIGNS: Reviewed. GENERAL: The patient appears normally developed, Vital signs as documented. HEAD: No signs of head trauma. EYES: Pupils are equal. Extraocular motions intact. EARS: Hearing grossly intact. MOUTH: Oropharynx is normal. NECK: No adenopathy, no JVD. CHEST: Chest with clear breath sounds bilaterally. No wheezes, rales, or rhonchi. CARDIAC: Regular rate and rhythm. S1 and S2, without murmurs, gallops, or rubs. VASCULAR: No Edema. Peripheral pulses normal and equal in all extremities. ABDOMEN: Soft, non tender and non distended. No rebound or guarding, and no masses palpated. Bowel Sounds normal. MUSCULOSKELETAL: Good range of motion of all major joints. Extremities without clubbing, cyanosis or edema. NEUROLOGIC EXAM: Awake alert little bit drowsy oriented x3 no focal sensory or strength deficits. Speech normal. Follows commands. PSYCHIATRIC: Mood normal. SKIN: detail exam as documented in skin assessment
[2021-11-30] MEDS ORDERED: MAGNESIUM SULFATE 2 GM/50 ML BAG IV SCH (11:45)
--- NOTE | 2021-11-30 16:21 | Consultation ---
History of Present Illness Consult date: 11/30/21 Requesting physician: MELLISSA ROWLEY Reason for consult: other (Hyperglycemia; AMS) History of present illness: PULMONARY/CCM CONSULT NOTE (Full dictation # [id number]) Please see dictated notes for full details Past History Past Medical History: diabetes, GERD, hypertension, other (Migraines.Asthma) Past Surgical History: CABG, hysterectomy, Other (Tubal ligation) Social history: no significant social history Family history: no significant family history Medications and Allergies Allergies Allergy/AdvReac Type Severity Reaction Status Date / Time albuterol AdvReac CHEST PAIN Verified 03/05/18 13:42 atenolol AdvReac CHEST PAIN Verified 11/30/21 01:33 ciprofloxacin [From Cipro] AdvReac ANXIETY Verified 03/05/18 13:42 ibuprofen AdvReac Rash Verified 11/30/21 01:34 insulin detemir AdvReac DECREASED Verified 11/30/21 01:33 [From Levemir] VISION metformin AdvReac Unknown Verified 07/22/18 12:23 Home Medications Medication Instructions Recorded Confirmed Last Taken Type Lantus Solostar 30 units QDAY 11/30/21 11/30/21 Unknown History Active Meds: Active Medications Acetaminophen (Acetaminophen 325 Mg Tab) 650 mg PO Q6H PRN PRN Reason: Pain MILD(1-3)/Fever >100.5/BELL Dextrose (Dextrose 50% In Water (25gm) 50 Ml Syringe) 0 ml IV Q30MIN PRN; Protocol PRN Reason: Hypoglycemia Famotidine (Famotidine 20 Mg Tab) 20 mg PO QDAY SADE Insulin Human Regular 100 (units/ Sodium Chloride) 100 mls @ 1 mls/hr IV TITR SADE; Protocol Last Titration: 11/30/21 16:15 Dose: 0 units/hr, 0 mls/hr Sodium Chloride (Nacl 0.9% 1000 Ml) 1,000 mls @ 150 mls/hr IV DIRECT SADE Last Infusion: 11/30/21 11:18 Dose: 0 mls/hr Potassium Chloride/Dextrose/Sod Cl (D5w/0.45% Nacl/Kcl 20 Meq) 20 meq in 1,000 mls @ 125 mls/hr IV DIRECT SADE Last Infusion: 11/30/21 16:15 Dose: 0 mls/hr Magnesium Hydroxide (Magnesium Hydroxide (Mom) Oral Liqd Udc) 30 ml PO Q4H PRN PRN Reason: Constipation Morphine Sulfate (Morphine 2 Mg/1 Ml Inj) 2 mg IV Q4H PRN PRN Reason: Pain, Moderate (4-6) Morphine Sulfate (Morphine 4 Mg/1 Ml Inj) 4 mg IV Q4H PRN PRN Reason: Pain , Severe (7-10) Ondansetron HCl (Ondansetron 4 Mg/2 Ml Inj) 4 mg IV Q8H PRN PRN Reason: Nausea And Vomiting Senna (Sennosides 8.6 Mg Tab) 17.2 mg PO QHS SADE Sodium Chloride (Sodium Chloride 0.9% 10 Ml Flush Syringe) 10 ml IV BID SADE Last Admin: 11/30/21 09:45 Dose: 10 ml Sodium Chloride (Sodium Chloride 0.9% 10 Ml Flush Syringe) 10 ml IV PRN PRN PRN Reason: LINE FLUSH Physical Examination Vital signs: Vital Signs Temp Pulse Resp BP Pulse Ox 98.7 F 58 L 18 198/71 99 11/30/21 00:38 11/30/21 00:38 11/30/21 00:38 11/30/21 00:38 11/30/21 00:38 Results - Laboratory Findings CBC and BMP: 11/30/21 01:04 11/30/21 08:03 Abnormal lab findings: Abnormal Labs 11/30/21 11/30/21 11/30/21 01:04 01:04 05:28 Hgb 14.7 H Hct 44.4 H Lymph % (Auto) 12.1 L Lymph # (Auto) 0.7 L Seg Neutrophils % 80.1 H Sodium 133 L Potassium 5.1 H Chloride 91.7 L Glucose 720 H* POC Glucose 471 H Magnesium 11/30/21 11/30/21 11/30/21 06:28 07:29 08:03 Hgb Hct Lymph % (Auto) Lymph # (Auto) Seg Neutrophils % Sodium Potassium Chloride Glucose 302 H POC Glucose 423 H 375 H Magnesium 1.60 L 11/30/21 11/30/21 11/30/21 08:31 09:41 10:36 Hgb Hct Lymph % (Auto) Lymph # (Auto) Seg Neutrophils % Sodium Potassium Chloride Glucose POC Glucose 319 H 180 H 127 H Magnesium 11/30/21 11/30/21 11:27 12:26 Hgb Hct Lymph % (Auto) Lymph # (Auto) Seg Neutrophils % Sodium Potassium Chloride Glucose POC Glucose 117 H 114 H Magnesium
[2021-11-30] MEDS: INSULIN REGULAR, HUMAN 100 UNITS/1 ML SUB-Q SCH ×2 (16:43→21:21)
--- NOTE | 2021-11-30 18:05 | Electrocardiograph Report ---
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
[2021-11-30] MEDS: ENOXAPARIN 30 MG/0.3 ML INJ SUB-Q SCH (21:20)
[2021-11-30] MEDS: SENNOSIDES 8.6 MG TAB PO SCH (21:21)
[2021-11-30] MEDS ORDERED: INSULIN GLARGINE 100 UNITS/ML SUB-Q SCH (22:00)
[2021-12-01 00:03] LABS: BUN/Creatinine Ratio 11; Blood Urea Nitrogen 9 mg/dL (7-17); Calcium 8.5 mg/dL (8.4-10.2); Hemolysis Index 10
[2021-12-01] MEDS ORDERED: hydrALAZINE 20 MG/1 ML INJ IV PRN (00:56)
[2021-12-01 06:23] LABS: Basophils # (Auto) 0.1 K/mm3 (0.0-0.1); Basophils % (Auto) 1.4 % (0.0-1.8); Eosinophils # (Auto) 0.1 K/mm3 (0.0-0.4); Eosinophils % (Auto) 1.5 % (0.0-4.3); Hematocrit 43.4 % (30.3-42.9); Hemoglobin 14.6 gm/dl (10.1-14.3); Lymphocytes # (Auto) 1.1 K/mm3 (1.2-5.4); Lymphocytes % (Auto) 21.1 % (13.4-35.0); Mean Corpuscular HGB Conc 34 % (30-34); Mean Corpuscular Volume 88 fl (79-97); Monocytes # (Auto) 0.3 K/mm3 (0.0-0.8); Monocytes % (Auto) 6.7 % (0.0-7.3); Platelet Count 142 K/mm3 (140-440); Red Blood Count 4.92 M/mm3 (3.65-5.03); Red Cell Distribution Width 14.2 % (13.2-15.2)
[2021-12-01 06:42] LABS: BUN/Creatinine Ratio 11; Blood Urea Nitrogen 9 mg/dL (7-17); Hemolysis Index 5
--- NOTE | 2021-12-01 08:16 | Consultation ---
History of Present Illness Consult date: 12/01/21 Reason for Consult: Syncopy and hyperglycemia,HTN History of present illness: Syncope History of present illness: 76-year-old -[place] female with known history of hypertension, diabetes mellitus and GERD brought into the emergency room today after having a fall. Patient was said to have been disoriented today and fell hitting the back of her head. She denies any injury to the head, denies any headache and denies any blurry vision. She denies any loss of consciousness. Blood glucose check on the field by EMS was said to be greater than 500. Work-up in the emergency room today, CT scan of the head was unremarkable, chest x-ray shows atelectasis bilaterally. Lab reveals blood glucose of 720, sodium of 133. Small amount of ketone. Hemoglobin 14.7 and hematocrit 44.4. Patient has been started on IV fluid and insulin drip. According to pt. she run out of her BS medication over a month ago , she does not check her suger at home tin Er Ct brain is unremarkable BP#189/71 -she is with tendency to lean back word noted todaty and slight left pronantor drift oriented to place and date denied hx of seizure Past History Past Medical History: diabetes, GERD, hypertension, other (Migraines.Asthma) Past Surgical History: CABG, hysterectomy, Other (Tubal ligation) Social history: no significant social history Family history: no significant family history Medications and Allergies Allergies Allergy/AdvReac Type Severity Reaction Status Date / Time albuterol AdvReac CHEST PAIN Verified 03/05/18 13:42 atenolol AdvReac CHEST PAIN Verified 11/30/21 01:33 ciprofloxacin [From Cipro] AdvReac ANXIETY Verified 03/05/18 13:42 ibuprofen AdvReac Rash Verified 11/30/21 01:34 insulin detemir AdvReac DECREASED Verified 11/30/21 01:33 [From Levemir] VISION metformin AdvReac Unknown Verified 07/22/18 12:23 Home Medications Medication Instructions Recorded Confirmed Last Taken Type Insulin Glargine,Hum.rec.anlog 50 units SQ QHS 03/05/18 07/17/18 07/21/18 History [Togerda Leon] Levothyroxine [Synthroid] 125 mcg PO QAM 03/05/18 07/17/18 07/21/18 History Losartan [Cozaar] 50 mg PO QDAY 03/05/18 07/17/18 07/21/18 History Sitagliptin Phosphate [Januvia] 50 mg PO DAILY 03/05/18 07/17/18 07/21/18 History Travoprost (Nf) [Travatan Z] 1 drop OP DAILY 03/05/18 07/17/18 07/21/18 History Nitrofurantoin Macrocrystal 100 mg PO DAILY 07/17/18 07/22/18 3 Weeks Ago His tory [Macrodantin] ~07/01/18 Liraglutide [Victoza 2-Guero] 0.6 mg SUB-Q DAILY 07/22/18 07/22/18 07/21/18 History Benzonatate [Tessalon Perles] 100 mg PO Q8HR #10 capsule 09/03/18 Unknown Rx Furosemide [Lasix] 40 mg PO PRN PRN #30 tablet 09/03/18 Unknown Rx Review of Systems Constitutional: no fever, no chills Ears, nose, mouth and throat: no nasal congestion, no sore throat Cardiovascular: no chest pain, no palpitations Respiratory: no cough, no shortness of breath Gastrointestinal: no abdominal pain, no nausea, no vomiting, no diarrhea Genitourinary Female: no pelvic pain, no flank pain, no dysuria, no hematuria Musculoskeletal: no neck pain, no low back pain Integumentary: no rash, no pruritis Neurological: no headaches, no confusion Psychiatric: no anxiety, no depression Endocrine: no polyphagia, no polydipsia, no polyuria, no nocturia Past History Past Medical History: diabetes, GERD, hypertension, other (Migraines.Asthma) Past Surgical History: CABG, hysterectomy, Other (Tubal ligation) Social history: no significant social history Family history: no significant family history Medications and Allergies Allergies Allergy/AdvReac Type Severity Reaction Status Date / Time albuterol AdvReac CHEST PAIN Verified 03/05/18 13:42 atenolol AdvReac CHEST PAIN Verified 11/30/21 01:33 ciprofloxacin [From Cipro] AdvReac ANXIETY Verified 03/05/18 13:42 ibuprofen AdvReac Rash Verified 11/30/21 01:34 insulin detemir AdvReac DECREASED Verified 11/30/21 01:33 [From Levemir] VISION metformin AdvReac Unknown Verified 07/22/18 12:23 Home Medications Medication Instructions Recorded Confirmed Last Taken Type Lantus Solostar 30 units QDAY 11/30/21 11/30/21 Unknown History Levothyroxine [Synthroid] 125 mcg PO QDAY 12/01/21 12/01/21 Unknown History Active Meds: Active Medications Acetaminophen (Acetaminophen 325 Mg Tab) 650 mg PO Q6H PRN PRN Reason: Pain MILD(1-3)/Fever >100.5/BELL Dextrose (Dextrose 50% In Water (25gm) 50 Ml Syringe) 50 ml IV Q30MIN PRN; Protocol PRN Reason: Hypoglycemia Enoxaparin Sodium (Enoxaparin 30 Mg/0.3 Ml Inj) 30 mg SUB-Q QHS [facility]; Protocol Last Admin: 11/30/21 21:20 Dose: 30 mg Famotidine (Famotidine 20 Mg Tab) 20 mg PO QDAY SADE Hydralazine HCl (Hydralazine 20 Mg/1 Ml Inj) 10 mg IV Q4HR PRN PRN Reason: Hypertension Last Admin: 12/01/21 01:11 Dose: 10 mg Insulin Glargine (Insulin Glargine 100 Units/Ml) 15 units SUB-Q QHS SADE Last Admin: 11/30/21 21:21 Dose: 15 units Insulin Human Regular (Insulin Regular, Human 100 Units/1 Ml) 0 units SUB-Q ACHS [facility]; Protocol Last Admin: 11/30/21 21:21 Dose: 8 units Magnesium Hydroxide (Magnesium Hydroxide (Mom) Oral Liqd Udc) 30 ml PO Q4H PRN PRN Reason: Constipation Ondansetron HCl (Ondansetron 4 Mg/2 Ml Inj) 4 mg IV Q8H PRN PRN Reason: Nausea And Vomiting Senna (Sennosides 8.6 Mg Tab) 17.2 mg PO QHS SADE Last Admin: 11/30/21 21:21 Dose: Not Given Sodium Chloride (Sodium Chloride 0.9% 10 Ml Flush Syringe) 10 ml IV BID SADE Last Admin: 11/30/21 21:21 Dose: 10 ml Sodium Chloride (Sodium Chloride 0.9% 10 Ml Flush Syringe) 10 ml IV PRN PRN PRN Reason: LINE FLUSH Physical Examination - Vital Signs Vital Signs: Vital Signs Temp Pulse Resp BP Pulse Ox 98.7 F 58 L 18 198/71 99 11/30/21 00:38 11/30/21 00:38 11/30/21 00:38 11/30/21 00:38 11/30/21 00:38 - Constitutional General appearance: uncomfortable - EENT EENT: Present: PERRL, mucous membranes moist - Respiratory Respiratory: Present: lungs clear, rhonchi - Cardiovascular Cardiovascular: Present: regular rate, normal S1, normal S2 Extremities: Present: no peripheral edema bilatateraly, no clubbing, cyanosis - Gastrointestinal Gastrointestinal: Present: normoactive bowel sounds - Integumentary Integumentary: Present: normal - Neurologic Cranial nerve examination: PERRL, EOMI, intact Speech examination: intact Sensorimotor examination: intact Detailed motor examination: grossly full strength in, other (with slight left pronator drift , she lean back word in the sitting position, reflexes suppressed , with decrease sensation in feet ,gait not done) - Level of Consciousness 1a. Level of Consciousness: alert/keenly responsive - LOC Questions 1b. LOC Questions: answers both correctly - LOC Command 1c. LOC Commands: performs tasks correctly - Best Gaze 2. Best Gaze: normal - Visual 3. Visual: no visual loss - Facial Palsy 4. Facial Palsy: normal symmetrical movement - Motor Arm 5a. Motor Arm Left: drift 5b. Motor Arm Right: no drift - Motor Leg 6a. Motor Leg Left: no drift 6b. Motor Leg Right: no drift - Limb Ataxia 7. Limb Ataxia: absent - Sensory 8. Sensory: normal - Best Language 9. Best Language: no aphasia - Dysarthria 10. Dysarthria: normal - Extinction and Inattention 11. Extinction/Inattention: no abnormality - Scoring Total Score: 1 Stroke Severity: Minor Stroke Results - Laboratory Findings CBC and BMP: 12/01/21 05:02 12/01/21 05:02 Abnormal Lab Findings: Abnormal Labs 11/30/21 11/30/21 11/30/21 01:04 01:04 05:28 Hgb 14.7 H Hct 44.4 H Lymph % (Auto) 12.1 L Lymph # (Auto) 0.7 L Seg Neutrophils % 80.1 H Sodium 133 L Potassium 5.1 H Chloride 91.7 L Glucose 720 H* POC Glucose 471 H Magnesium 11/30/21 11/30/21 11/30/21 06:28 07:29 08:03 Hgb Hct Lymph % (Auto) Lymph # (Auto) Seg Neutrophils % Sodium Potassium Chloride Glucose 302 H POC Glucose 423 H 375 H Magnesium 1.60 L 11/30/21 11/30/21 11/30/21 08:31 09:41 10:36 Hgb Hct Lymph % (Auto) Lymph # (Auto) Seg Neutrophils % Sodium Potassium Chloride Glucose POC Glucose 319 H 180 H 127 H Magnesium 11/30/21 11/30/21 11/30/21 11:27 12:26 15:12 Hgb Hct Lymph % (Auto) Lymph # (Auto) Seg Neutrophils % Sodium Potassium Chloride Glucose POC Glucose 117 H 114 H 180 H Magnesium 11/30/21 11/30/21 11/30/21 16:41 21:14 23:05 Hgb Hct Lymph % (Auto) Lymph # (Auto) Seg Neutrophils % Sodium 132 L D Potassium Chloride 94.8 L Glucose 430 H POC Glucose 145 H 390 H Magnesium 1.60 L 12/01/21 12/01/21 05:02 05:02 Hgb 14.6 H Hct 43.4 H Lymph % (Auto) Lymph # (Auto) 1.1 L Seg Neutrophils % Sodium 136 L Potassium Chloride 95.4 L Glucose 390 H POC Glucose Magnesium Assessment and Plan Assessment and Plan 76-year-old -[place] female with known history of hypertension, diabetes mellitus and GERD brought into the emergency room today after having a fall. Patient was said to have been disoriented today and fell hitting the back of her head. She denies any injury to the head, denies any headache and denies any blurry vision. She denies any loss of consciousness. Blood glucose check on the field by EMS was said to be greater than 500. - Patient Problems # Fall at home and or momentarily LOC as per pt. -she is dizzy and is with left pronantor drift and unsteady gait - doubt seizure -R/O CVA -PLAN -MRI brain -EEG -Check for orthostatic changes -ASA 81 mg and Lipitor -carotid US -Pt therapy -b12 level, A1C and TSH # Hyperglycemia -Patient in mild DKA. -Patient placed on IV fluid and insulin drip. She will be closely monitored in the intensive care unit. -We will monitor Accu-Cheks closely. # poorly controlled HTN -Initial BP 189/71 -control BP<150/80 -MRI brain # Hx of medication none compliance -pt. is out of her Bs medications -? BP medication intake # DVT prophylaxis -Patient placed on subcutaneous heparin. # Full code status -Patient is full code. Will follow
[2021-12-01] MEDS: FAMOTIDINE 20 MG TAB PO SCH (10:31)
[2021-12-01] MEDS: INSULIN REGULAR, HUMAN 100 UNITS/1 ML SUB-Q SCH ×4 (10:31→21:32)
[2021-12-01 13:31] LABS: Chol/HDL Ratio 6.37 %
--- NOTE | 2021-12-01 14:08 | Consultation ---
DATE OF CONSULTATION: 11/30/2021 PULMONARY CRITICAL CARE CONSULT NOTE CONSULTING PHYSICIAN: Dr. Pichardo. REASON FOR CONSULTATION: Hyperglycemia, possible hyperosmolar nonketotic coma syndrome. CHIEF COMPLAINT AND HISTORY OF PRESENT ILLNESS: The patient is a now 76-year-old obese female with past medical history significant amongst other things for a diagnosis of diabetes and gastroesophageal reflux disease, who presented to the Emergency Room after having a fall. According to the family, she had been disoriented today, fell hitting the back of her head. She denied any trauma to the head. She denied any headache. She denied any blurry vision. Blood glucose checked in the field showed blood sugars greater than 500. In the Emergency Room, a CT scan of the head was unremarkable. A chest x-ray showed some bibasilar atelectasis and she was admitted to the intensive care unit for management of the hyperglycemia essentially with IV insulin drip. When I stopped by to see her, she was resting in bed. She had a blank stare on her face, but quickly snapped out of it. Denied any acute chest pain. Denied any current headaches. Denied nausea, vomiting or overt aspiration. That really is as much of the history of presentation as I have. PAST MEDICAL HISTORY: Diabetes, gastroesophageal reflux disease, hypertension, history of migraines and history of asthma. She is obese. PAST SURGICAL HISTORY: Coronary artery bypass grafting, hysterectomy and tubal ligations. MEDICATIONS: She was on at the time I stopped by to see her according to the medication administration record included the following: Tylenol 650 mg p.o. q. 6 hours p.r.n. mild pain or fever, Pepcid 20 mg p.o. daily, insulin drip was going at 1 unit per hour, morphine sulfate 2 mg IV q. 4 hours p.r.n. moderate pain and 4 mg IV q. 4 hours p.r.n. severe pain, Zofran 4 mg IV q. 8 hours p.r.n. nausea and vomiting, senna docusate 17.2 mg p.o. at bedtime, D5 half NS with 20 of KCl per liter at 125 mL per hour. ALLERGIES: ALBUTEROL, ATENOLOL, CIPROFLOXACIN, IBUPROFEN, DETEMIR INSULIN AND METFORMIN. Nature of this allergy is unknown. DIET: Obese lady, denies acute weight loss or gain in the preceding few weeks to months. FAMILY AND SOCIAL HISTORY: Family and social history looks like she lives in the community. It is not clear if she lives alone. Denies alcohol, tobacco or illicit drug use or abuse. FAMILY HISTORY: Otherwise unknown. REVIEW OF SYSTEMS: Difficult to obtain secondary to the patient's medical and mental condition. She denies gross hematochezia or melena. She denies gross hematuria or dysuria. She denies hematemesis. She complained of pain on her left side, which she believed was related to a fall. She denies heat or cold intolerance. Complete 13-system review of system was obtained as best as I could. Pertinent positives and/or negatives as in body of history above, otherwise noncontributory. PHYSICAL EXAMINATION: VITAL SIGNS: At presentation in the Emergency Room, temperature 98.7 degrees Fahrenheit, pulse of 58, respiratory rate of 18, blood pressure 198/71, O2 sats were 99%, inspired oxygen concentration at that time was not recorded. When I saw her, she was on room air. GENERAL: She is an elderly looking obese female. Normocephalic, atraumatic, rested in bed with normal respiratory effort at rest. HEAD, EYES, EARS, NOSE AND THROAT: Anicteric. No conjunctival erythema. Oropharynx was moist. NECK: No gross jugular venous distention, no thyromegaly. Grossly, there were no palpable lymph nodes in the supraclavicular or submandibular lymph node chains. LUNGS: Auscultation of both lung yoder unremarkable. Good bilateral air movement, again slightly diminished, but clear. HEART: Sounds 1 and 2 are heard, regular rate and rhythm at the time of my evaluation without overt rubs or murmurs. She did have a midline sternotomy incision that was well healed. ABDOMEN: Soft, protuberant. Bowel sounds are positive, nontender, no palpable hepatosplenomegaly. EXTREMITIES: Without overt digital clubbing or cyanosis, no pedal edema. Pedal pulses are 2+ bilaterally. NEUROLOGIC: Pupils are equal, round, about 4 mm, reactive to light. Extraocular muscle movements were intact. She moves all 4 extremities spontaneously. SKIN: Normal turgor without overt cellulitis or rash. Please see the wound care nurses' notes and registered nurse's notes for full description of her skin. PSYCHIATRIC: Affect was somewhat flat to start out the interview, but became I would say normal with an appropriate affect as the interview progressed. Palpation of the scalp did not reveal any point tenderness, nor did the palpation of the C-spine. LABORATORY DATA: From my review are as follows: White cell count 5600, hemoglobin 14.7, hematocrit 44.4, platelet count was 177. Serum sodium was 133, potassium 5.1, chloride 92, bicarbonate 24, BUN 16, creatinine 1.1, glucose was 720. Ketones with small serum ketones. Liver function test within normal limits. Troponin within normal limits. Urinalysis negative for nitrites and leukocyte esterase. Magnesium level was 1.6 and will be corrected. No microbiology studies to date. Chest x-ray has been reviewed. I have also reviewed the radiologist's interpretation, some ____ atelectasis in the bases, mild interstitial edema at best, it might be due to certain element of over penetration. Median sternotomy wires are in place. No gross pneumothorax, no gross bony fracture. A CT scan of the head was done, which showed no acute intracranial abnormality, just age related treatment changes. ASSESSMENT: 1. Hyperglycemia, possible nonketotic hyperosmolar state. 2. Acute toxic metabolic encephalopathy. 3. Fall. 4. Obesity. 5. History of hypertension. 6. Gastroesophageal reflux disease. 7. History of asthma. 8. History of migraines. 9. Coronary artery disease. PLAN: We will keep her on the IV insulin for now. Her blood sugars however are well under better control. I believe the last time it was about 180. If she passes a swallow evaluation, we will begin oral diet and transition over to long-acting insulin therapy. If she is unable to eat, I will just put her on a moderate dose sliding scale for the next 24 hours and see if we can get her to a point where she passes a swallow evaluation and can be fed. She will be followed clinically. Supplemental oxygen as necessary will be given to keep sats greater than or equal to 90%. Aspiration precautions will be maintained. Glycemic control will be for target blood glucose of less than 180 mg/dL while in the hospital. Case management will be asked to look into her social situation to ensure that she is getting her medications and being treated as necessary. Hemoglobin A1c will be ordered. She is appropriately on GI prophylaxis. She will be placed on DVT prophylaxis with Lovenox. Flu and pneumonia vaccination will be addressed per protocol. Thank you very much for the consult. We will follow along. We will make further recommendations as the picture progresses/becomes clearer. TID: [id number] RECEIPT: [id number] RICARDO/RAVEN/LIVAN
--- NOTE | 2021-12-01 14:19 | Progress Note ---
Assessment and Plan Assessment and plan: #Type II Diabetes with Hyperglycemia #DKA -s/p insulin gtt while in ICU -patient reports taking insulin outpatient but has been unable to get a new prescription -lantus increased to 30U QHS, will continue insulin at discharge -continue SSI + accuchecks -diabetic diet #Fall -continue fall precautions -Per history unclear if patient lost consciousness -MRI and carotid Doppler pending -CT head unremarkable for acute findings -PT evaluation pending -Neurology consulted, assistance appreciated #Hypertension -Patient reports not taking her blood pressure medications -We will start nifedipine 30 mg daily -Goal SBP less than 160 #Hypothyroidism -TSH 20, patient not taking medications at home -Continue levothyroxine at home dose #Hypomagnesemia -will replete and monitor #Advanced care planning -Disease education conducted, care plan discussed, diagnoses discussed, progn osis discussed, and patient acknowledges understanding with care plan -Time: +30 min History Interval history: No acute events overnight. Patient unaware of why she is in the hospital and repeatedly asked for her son's information so she could go home. Has no complaints at this time. Eager to get out of bed with physical therapy. Hospitalist Physical - Physical exam Narrative exam: GENERAL: Well-developed well-nourished. Sitting on the side of the bed in no acute distress. HEENT: Normocephalic. Atraumatic. NECK: Supple. CHEST/LUNGS: CTAB on room air HEART/CARDIOVASCULAR: RRR. No murmur, rubs or gallops appreciated. ABDOMEN: +BS. NT/ND. SKIN: No rashes noted. NEURO: No focal motor deficit. Follows all commands. MUSCULOSKELETAL: No joint effusion EXTREMITIES: No cyanosis, clubbing or edema. PSYCH: Cooperative. - Constitutional Vitals: Temp Pulse Resp BP Pulse Ox 98.0 F 58 L 18 163/67 95 12/01/21 03:55 12/01/21 04:03 12/01/21 03:55 12/01/21 03:55 12/01/21 08:00 General appearance: Present: no acute distress, well-nourished, other (Dry oral mucosa) HEART Score - HEART Score Troponin: Troponin T < 0.010 ng/mL (0.00-0.029) 11/30/21 01:04 Results - Labs CBC & Chem 7: 12/01/21 05:02 12/01/21 05:02 Labs: Laboratory Last Values WBC 5.1 K/mm3 (4.5-11.0) 12/01/21 05:02 RBC 4.92 M/mm3 (3.65-5.03) 12/01/21 05:02 Hgb 14.6 gm/dl (10.1-14.3) H 12/01/21 05:02 Hct 43.4 % (30.3-42.9) H 12/01/21 05:02 MCV 88 fl (79-97) 12/01/21 05:02 MCH 30 pg (28-32) 12/01/21 05:02 MCHC 34 % (30-34) 12/01/21 05:02 RDW 14.2 % (13.2-15.2) 12/01/21 05:02 Plt Count 142 K/mm3 (140-440) 12/01/21 05:02 Lymph % (Auto) 21.1 % (13.4-35.0) 12/01/21 05:02 Webb % (Auto) 6.7 % (0.0-7.3) 12/01/21 05:02 Eos % (Auto) 1.5 % (0.0-4.3) 12/01/21 05:02 Baso % (Auto) 1.4 % (0.0-1.8) 12/01/21 05:02 Lymph # (Auto) 1.1 K/mm3 (1.2-5.4) L 12/01/21 05:02 Webb # (Auto) 0.3 K/mm3 (0.0-0.8) 12/01/21 05:02 Eos # (Auto) 0.1 K/mm3 (0.0-0.4) 12/01/21 05:02 Baso # (Auto) 0.1 K/mm3 (0.0-0.1) 12/01/21 05:02 Seg Neutrophils % 69.3 % (40.0-70.0) 12/01/21 05:02 Seg Neutrophils # 3.5 K/mm3 (1.8-7.7) 12/01/21 05:02 Sodium 136 mmol/L (137-145) L 12/01/21 05:02 Potassium 4.0 mmol/L (3.6-5.0) 12/01/21 05:02 Chloride 95.4 mmol/L (98-107) L 12/01/21 05:02 Carbon Dioxide 26 mmol/L (22-30) 12/01/21 05:02 Anion Gap 19 mmol/L 12/01/21 05:02 BUN 9 mg/dL (7-17) 12/01/21 05:02 Creatinine 0.8 mg/dL (0.6-1.2) 12/01/21 05:02 Estimated GFR > 60 ml/min 12/01/21 05:02 BUN/Creatinine Ratio 11 % 12/01/21 05:02 Glucose 390 mg/dL (65-100) H 12/01/21 05:02 POC Glucose 355 mg/dL (70-105) H 12/01/21 10:02 Hemoglobin A1c 15.0 % (4-6) H 12/01/21 05:12 Ketones Quantitative Small (Negative) 11/30/21 01:04 Calcium 9.0 mg/dL (8.4-10.2) 12/01/21 05:02 Phosphorus 2.60 mg/dL (2.5-4.5) 12/01/21 05:02 Magnesium 1.70 mg/dL (1.7-2.3) 12/01/21 05:02 Total Bilirubin 0.80 mg/dL (0.1-1.2) 11/30/21 01:04 AST 17 units/L (5-40) 11/30/21 01:04 ALT 9 units/L (7-56) 11/30/21 01:04 Alkaline Phosphatase 111 units/L (35-129) 11/30/21 01:04 Total Creatine Kinase 115 units/L (30-135) 11/30/21 01:04 CK-MB (CK-2) 3.5 ng/mL (0.0-4.0) 11/30/21 01:04 CK-MB (CK-2) Rel Index 3.0 (0-4) 11/30/21 01:04 Troponin T < 0.010 ng/mL (0.00-0.029) 11/30/21 01:04 Total Protein 7.3 g/dL (6.3-8.2) 11/30/21 01:04 Albumin 4.2 g/dL (3.9-5) 11/30/21 01:04 Albumin/Globulin Ratio 1.4 % 11/30/21 01:04 Triglycerides 113 mg/dL (2-149) 12/01/21 05:12 Cholesterol 274 mg/dL (50-199) H 12/01/21 05:12 LDL Cholesterol Direct 218 mg/dL (50-130) H 12/01/21 05:12 HDL Cholesterol 43 mg/dL (40-59) 12/01/21 05:12 Cholesterol/HDL Ratio 6.37 % 12/01/21 05:12 Vitamin B12 1766 pg/mL (211-911) H 12/01/21 05:12 TSH 20.280 mlU/mL (0.270-4.200) H 12/01/21 05:12 Urine Color Straw (Yellow) 11/30/21 01:35 Urine Turbidity Clear (Clear) 11/30/21 01:35 Urine pH 5.0 (5.0-7.0) 11/30/21 01:35 Ur Specific [place] 1.021 (1.003-1.030) 11/30/21 01:35 Urine Protein <15 mg/dl mg/dL (Negative) 11/30/21 01:35 Urine Glucose (UA) >=500 mg/dL (Negative) 11/30/21 01:35 Urine Ketones 20 mg/dL (Negative) 11/30/21 01:35 Urine Blood Mod (Negative) 11/30/21 01:35 Urine Nitrite Neg (Negative) 11/30/21 01:35 Urine Bilirubin Neg (Negative) 11/30/21 01:35 Urine Urobilinogen < 2.0 mg/dL (<2.0) 11/30/21 01:35 Ur Leukocyte Esterase Neg (Negative) 11/30/21 01:35 Urine WBC (Auto) 2.0 /HPF (0.0-6.0) 11/30/21 01:35 Urine RBC (Auto) 4.0 /HPF (0.0-6.0) 11/30/21 01:35 Padilla/IV: Voiding Method External Female Catheter Active Medications - Current Medications Current Medications: Generic Name Dose Route Start Last Admin Trade Name Freq PRN Reason Stop Dose Admin Acetaminophen 650 mg 11/30/21 03:54 Acetaminophen 325 Mg Tab PO Q6H PRN Pain MILD(1-3)/Fever >100.5/BELL Dextrose 50 ml 11/30/21 16:30 Dextrose 50% In Water (25gm) 50 Ml Syringe IV Q30MIN PRN Hypoglycemia Protocol Enoxaparin Sodium 30 mg 11/30/21 22:00 11/30/21 21:20 Enoxaparin 30 Mg/0.3 Ml Inj SUB-Q 30 mg QHS SADE Administration Protocol Famotidine 20 mg 12/01/21 10:00 12/01/21 10:31 Famotidine 20 Mg Tab PO 20 mg QDAY SADE Administration Hydralazine HCl 10 mg 12/01/21 00:56 12/01/21 01:11 Hydralazine 20 Mg/1 Ml Inj IV 10 mg Q4HR PRN Administration Hypertension Insulin Glargine 22 units 12/01/21 22:00 Insulin Glargine 100 Units/Ml SUB-Q QHS [facility] Insulin Human Regular 0 units 11/30/21 16:30 12/01/21 10:31 Insulin Regular, Human 100 Units/1 Ml SUB-Q 6 units ACHS SADE Administration Protocol Levothyroxine Sodium 125 mcg 12/01/21 14:00 Levothyroxine 125 Mcg Tab PO QDAY [facility] Magnesium Hydroxide 30 ml 11/30/21 03:54 Magnesium Hydroxide (Mom) Oral Liqd Udc PO Q4H PRN Constipation Nifedipine 30 mg 12/01/21 14:00 Nifedipine Xl 30 Mg Tab PO QDAY [facility] Ondansetron HCl 4 mg 11/30/21 03:54 Ondansetron 4 Mg/2 Ml Inj IV Q8H PRN Nausea And Vomiting Senna 17.2 mg 11/30/21 22:00 11/30/21 21:21 Sennosides 8.6 Mg Tab PO Not Given QHS SADE Sodium Chloride 10 ml 11/30/21 10:00 12/01/21 10:33 Sodium Chloride 0.9% 10 Ml Flush Syringe IV 10 ml BID SADE Administration Sodium Chloride 10 ml 11/30/21 03:54 Sodium Chloride 0.9% 10 Ml Flush Syringe IV PRN PRN LINE FLUSH Nutrition/Malnutrition Assess - Dietary Evaluation Nutrition/Malnutrition Findings: Nutrition Notes Start: 11/30/21 16:02 Freq: Status: Active Protocol: Document 11/30/21 16:02 KETURAH (Rec: 11/30/21 16:11 KETURAH [id number]) Nutrition Notes Need for Assessment generated from: MD Order,Education Initial or Follow up Brief Note Current Diagnosis Diabetes,Hypertension Other Pertinent Diagnosis Hyperglycemia, Fall, GERD. Current Diet NPO (since 11/30 12:36). Height 5 ft 5 in Weight 75.75 kg [place] Body Weight (kg) 56.81 BMI 27.8 Intake Prior to Admission Good Weight change and time frame Pt denies having loss body weight [employer]. Weight Status Overweight Subjective/Other Information RD consult for Nutrition Education. Pt currently on NPO. Pt on Room Air, O2 saturation @ 96%, according to Physical Assessment History notes. Pt still in critical condition , not a candidate for Nutrition Education at the time, will assess feasibility on F/U. Percent of energy/protein needs met: Pt currently on NPO. Nutrition Intervention Follow-Up By: 12/07/21 Additional Comments Nutrition education will be provided on F/U, if feasible. Continue monitoring food tolerance, %PO intake of meals , and BM.
[2021-12-01] MEDS: NIFEdipine XL 30 MG TAB PO SCH (15:00)
[2021-12-01] MEDS: LEVOTHYROXINE 125 MCG TAB PO SCH (15:12)
--- NOTE | 2021-12-01 15:29 | Progress Note ---
Assessment and Plan Hyperglycemia, possible nonketotic hyperosmolar state Acute toxic metabolic encephalopathy S/P GLF Obesity HTN GERD H/O Asthma H/O Migraines Coronary artery disease - follow MRI brain report - supplemental oxygen to keep O2 sats > 90% - bronchodilators (MARTHA) with pulm hygiene per RT - to avoid nephrotoxins, renally dose all medications - mobility protocols to prevent pressure ulcers - PT/OT as tolerated - Wound care per RN/WCT - continue accuchecks with glycemic control per SSI for target blood glucose < 180 mg/dL - tobacco abstinence strongly counseled at the bedside - home oxygen evaluation at discharge - GI & VTE prophylaxis - Flu & pneumovax per protocol - Pulmonary out patient follow up for PFTs and optimization of respiratory status - continue other care per attending / other consultants - prn analgesia per pain score ... re-evaluate in am & prn Subjective Date of service: 12/01/21 Principal diagnosis: Hyperglycemia; AMS; S/P GLF; Obesity; H/O Asthma; CAD; H/O Migraines Interval history: Patient is seen today for: Hyperglycemia; Acute toxic metabolic encephalopathy; S/P GLF; Obesity; H/O Asthma; CAD; H/O Migraines Seen and examined at bedside; 24hour events reviewed; nursing and respiratory care staff consulted; no adverse overnight events reported to me; resting peacefully in bed; mild confusion; denies acute chest pain; denies SOB; afebrile Objective Vital Signs - 12hr 12/01/21 12/01/21 12/01/21 03:55 04:03 08:00 Temperature 98.0 F Pulse Rate 58 L 58 L Respiratory 18 Rate Blood Pressure 163/67 O2 Sat by Pulse 100 95 Oximetry Constitutional: no acute distress Eyes: non-icteric ENT: oropharynx moist Neck: supple, no lymphadenopathy, no JVD Effort: normal Ascultation: Bilateral: clear Percussion: Bilateral: not dull Cardiovascular: regular rate and rhythm Gastrointestinal: normoactive bowel sounds, soft, non-tender, non-distended (protuberant) Integumentary: normal Extremities: no cyanosis, no edema, pulses normal, no ischemia or petechiae Neurologic: non-focal exam (grossly), pupils equal and round, CN II-XII normal, motor strength normal and Psychiatric: mood appropriate, affect normal CBC and BMP: 12/01/21 05:02 12/02/21 05:25 Abnormal lab findings: Abnormal Labs 11/30/21 11/30/21 11/30/21 01:04 01:04 05:28 Hgb 14.7 H Hct 44.4 H Lymph % (Auto) 12.1 L Lymph # (Auto) 0.7 L Seg Neutrophils % 80.1 H Sodium 133 L Potassium 5.1 H Chloride 91.7 L Glucose 720 H* POC Glucose 471 H Hemoglobin A1c Magnesium Cholesterol LDL Cholesterol Direct Vitamin B12 TSH 11/30/21 11/30/21 11/30/21 06:28 07:29 08:03 Hgb Hct Lymph % (Auto) Lymph # (Auto) Seg Neutrophils % Sodium Potassium Chloride Glucose 302 H POC Glucose 423 H 375 H Hemoglobin A1c Magnesium 1.60 L Cholesterol LDL Cholesterol Direct Vitamin B12 TSH 11/30/21 11/30/21 11/30/21 08:31 09:41 10:36 Hgb Hct Lymph % (Auto) Lymph # (Auto) Seg Neutrophils % Sodium Potassium Chloride Glucose POC Glucose 319 H 180 H 127 H Hemoglobin A1c Magnesium Cholesterol LDL Cholesterol Direct Vitamin B12 [facility] 11/30/21 11/30/21 11/30/21 11:27 12:26 15:12 Hgb Hct Lymph % (Auto) Lymph # (Auto) Seg Neutrophils % Sodium Potassium Chloride Glucose POC Glucose 117 H 114 H 180 H Hemoglobin A1c Magnesium Cholesterol LDL Cholesterol Direct Vitamin B12 TSH 11/30/21 11/30/21 11/30/21 16:41 21:14 23:05 Hgb Hct Lymph % (Auto) Lymph # (Auto) Seg Neutrophils % Sodium 132 L D Potassium Chloride 94.8 L Glucose 430 H POC Glucose 145 H 390 H Hemoglobin A1c Magnesium 1.60 L Cholesterol LDL Cholesterol Direct Vitamin B12 TSH 12/01/21 12/01/21 12/01/21 05:02 05:02 05:12 Hgb 14.6 H Hct 43.4 H Lymph % (Auto) Lymph # (Auto) 1.1 L Seg Neutrophils % Sodium 136 L Potassium Chloride 95.4 L Glucose 390 H POC Glucose Hemoglobin A1c 15.0 H Magnesium Cholesterol LDL Cholesterol Direct Vitamin B12 TSH 12/01/21 12/01/21 12/01/21 05:12 05:12 05:12 Hgb Hct Lymph % (Auto) Lymph # (Auto) Seg Neutrophils % Sodium Potassium Chloride Glucose POC Glucose Hemoglobin A1c Magnesium Cholesterol 274 H LDL Cholesterol Direct 218 H Vitamin B12 1766 H TSH 20.280 H 12/01/21 10:02 Hgb Hct Lymph % (Auto) Lymph # (Auto) Seg Neutrophils % Sodium Potassium Chloride Glucose POC Glucose 355 H Hemoglobin A1c Magnesium Cholesterol LDL Cholesterol Direct Vitamin B12 TSH Allied health notes reviewed: nursing
--- NOTE | 2021-12-01 15:47 | Magnetic Resonance Report ---
MRI BRAIN 12/01/2021 INDICATION / CLINICAL INFORMATION: CVA. TECHNIQUE: Multiplanar, multisequence MR images of the brain were obtained. COMPARISON: None available. FINDINGS: BRAIN / INTRACRANIAL CONTENTS: Unenhanced MR images of the brain demonstrate no evidence of acute abn ormality. Ventricles and sulci are prominent in size, consistent with age-related atrophic change. Moderate chronic microangiopathic white matter T2 weighted hyperintensities present in the cerebral h emispheric white matter, consistent with chronic small vessel ischemic change. There is no evidence of acute ischemic injury, hemorrhage, or mass. There are no abnormal extra-axial fluid collections. EXTRACRANIAL: Unremarkable CRANIOCERVICAL JUNCTION: No significant abnormality. VASCULAR FLOW-VOIDS: No significant abnormality. IMPRESSION: No acute abnormality. Chronic and age-related changes. Signer Name: Beto Adorno MD Signed: 12/01/2021 3:42 PM Workstation Name: [id number]
--- NOTE | 2021-12-01 15:52 | Vascular Lab Report ---
DUPLEX DOPPLER ULTRASOUND CAROTID, BILATERAL INDICATION / CLINICAL INFORMATION: unsteady CVA. COMPARISON: None available. FINDINGS: RIGHT CAROTID: Mild atherosclerotic plaque. - PLAQUE ESTIMATE (%): < 50% - CCA velocity: 63 cm/sec. - ICA peak systolic velocity: 103 cm/sec. - ICA/CCA PSV Ratio: Less than 2. Right Vertebral Artery: Antegrade flow. LEFT CAROTID: Mild atherosclerotic plaque. - PLAQUE ESTIMATE (%): < 50% - CCA velocity: 63 cm/sec. - ICA peak systolic velocity: 121 cm/sec. - ICA/CCA PSV Ratio: Less than 2. Left Vertebral Artery: Antegrade flow. IMPRESSION: 1. Right Internal Carotid Artery: Less than 50% diameter stenosis. 2. Left Internal Carotid Artery: Less than 50% diameter stenosis. Velocity criteria are extrapolated from diameter data as defined by the Society of Radiologists in Ul trasound Consensus Conference, Radiology 2003; 229;340-346. NO STENOSIS (NORMAL) - Plaque = none; ICA PSV < 125 cm/sec; ICA/CCA PSV Ratio < 2.0 <50% STENOSIS - Plaque < 50%; ICA PSV < 125 cm/sec; ICA/CCA PSV Ratio < 2.0 50-69% STENOSIS - Plaque > 50%; ICA PSV = 125-230 cm/sec; ICA/CCA PSV Ratio = 2.0-4.0 >70% BUT <100% STENOSIS - Plaque > 50%; ICA PSV > 230 cm/sec; ICA/CCA PSV Ratio > 4.0 NEAR OCCLUSION - Plaque = visible lumen; ICA PSV = high/low/none; ICA/CCA PSV Ratio = variable TOTAL OCCLUSION - Plaque = no lumen; ICA PSV = none; ICA/CCA PSV Ratio = N/A Scribed by: Shari Gutierrez RDMS, RVT, RMSKS Scribed: 12/01/2021 2:46 PM I have reviewed the images, agree with this report, and edited this report as needed. Signer Name: Rolando Alanis MD Signed: 12/01/2021 3:47 PM Workstation Name: [id number]
[2021-12-01] MEDS ORDERED: INSULIN GLARGINE 100 UNITS/ML SUB-Q SCH (22:00)
[2021-12-01] MEDS: ENOXAPARIN 30 MG/0.3 ML INJ SUB-Q SCH (22:04)
[2021-12-01] MEDS: SENNOSIDES 8.6 MG TAB PO SCH (22:04)
[2021-12-02 06:09] LABS: BUN/Creatinine Ratio 12; Blood Urea Nitrogen 12 mg/dL (7-17); Calcium 9.2 mg/dL (8.4-10.2); Hemolysis Index 22
--- NOTE | 2021-12-02 07:50 | Progress Note ---
Assessment and Plan Assessment and plan: #Type II Diabetes with Hyperglycemia #DKA -s/p insulin gtt while in ICU -patient reports taking insulin outpatient but has been unable to get a new prescription -lantus increased to 30U QHS, will continue insulin at discharge -continue SSI + accuchecks -diabetic diet #Fall -continue fall precautions -Per history unclear if patient lost consciousness -MRI unremarkable and carotid Doppler shows less than 50% stenosis bilaterally -EEG pending -CT head unremarkable for acute findings -PT evaluation: subacute rehab -patient agreeable to subacute rehab also okay with HH with PT -Neurology consulted, assistance appreciated #Hypertension -Patient reports not taking her blood pressure medications -continue nifedipine 30 mg daily -Goal SBP less than 160 #Hyponatremia -Na 127, 131 when adjusted for hyperglycemia -will continue to monitor #Hypothyroidism -TSH 20, patient not taking medications at home -Continue levothyroxine at home dose #Hypomagnesemia -will replete and monitor #Advanced care planning -Disease education conducted, care plan discussed, diagnoses discussed, prognosis discussed, and patient acknowledges understanding with care plan -Time: +30 min History Interval history: No acute events overnight. Patient updated about current care plan. She has no complaints or discomfort at this time. Hospitalist Physical - Physical exam Narrative exam: GENERAL: Well-developed well-nourished. Sitting in a chair, in no acute distress. HEENT: Normocephalic. Atraumatic. NECK: Supple. CHEST/LUNGS: CTAB on room air HEART/CARDIOVASCULAR: RRR. No murmur, rubs or gallops appreciated. ABDOMEN: +BS. NT/ND. SKIN: No rashes noted. NEURO: No focal motor deficit. Follows all commands. MUSCULOSKELETAL: No joint effusion EXTREMITIES: No cyanosis, clubbing or edema. PSYCH: Cooperative. - Constitutional Vitals: Temp Pulse Resp BP Pulse Ox 98.2 F 59 L 16 150/60 96 12/02/21 04:48 12/02/21 04:48 12/02/21 04:48 12/02/21 04:48 12/02/21 04:48 General appearance: Present: no acute distress, well-nourished, other (Dry oral mucosa) HEART Score - HEART Score Troponin: Troponin T < 0.010 ng/mL (0.00-0.029) 11/30/21 01:04 Results - Labs CBC & Chem 7: 12/01/21 05:02 12/02/21 05:25 Labs: Laboratory Last Values WBC 5.1 K/mm3 (4.5-11.0) 12/01/21 05:02 RBC 4.92 M/mm3 (3.65-5.03) 12/01/21 05:02 Hgb 14.6 gm/dl (10.1-14.3) H 12/01/21 05:02 Hct 43.4 % (30.3-42.9) H 12/01/21 05:02 MCV 88 fl (79-97) 12/01/21 05:02 MCH 30 pg (28-32) 12/01/21 05:02 MCHC 34 % (30-34) 12/01/21 05:02 RDW 14.2 % (13.2-15.2) 12/01/21 05:02 Plt Count 142 K/mm3 (140-440) 12/01/21 05:02 Lymph % (Auto) 21.1 % (13.4-35.0) 12/01/21 05:02 [place] % (Auto) 6.7 % (0.0-7.3) 12/01/21 05:02 Eos % (Auto) 1.5 % (0.0-4.3) 12/01/21 05:02 Baso % (Auto) 1.4 % (0.0-1.8) 12/01/21 05:02 Lymph # (Auto) 1.1 K/mm3 (1.2-5.4) L 12/01/21 05:02 [place] # (Auto) 0.3 K/mm3 (0.0-0.8) 12/01/21 05:02 Eos # (Auto) 0.1 K/mm3 (0.0-0.4) 12/01/21 05:02 Baso # (Auto) 0.1 K/mm3 (0.0-0.1) 12/01/21 05:02 Seg Neutrophils % 69.3 % (40.0-70.0) 12/01/21 05:02 Seg Neutrophils # 3.5 K/mm3 (1.8-7.7) 12/01/21 05:02 Sodium 127 mmol/L (137-145) L D 12/02/21 05:25 Potassium 3.6 mmol/L (3.6-5.0) 12/02/21 05:25 Chloride 90.3 mmol/L (98-107) L 12/02/21 05:25 Carbon Dioxide 26 mmol/L (22-30) 12/02/21 05:25 Anion Gap 14 mmol/L 12/02/21 05:25 BUN 12 mg/dL (7-17) 12/02/21 05:25 Creatinine 1.0 mg/dL (0.6-1.2) 12/02/21 05:25 Estimated GFR > 60 ml/min 12/02/21 05:25 BUN/Creatinine Ratio 12 % 12/02/21 05:25 Glucose 380 mg/dL (65-100) H 12/02/21 05:25 POC Glucose 555 mg/dL (70-105) H 12/01/21 21:20 Hemoglobin A1c 15.0 % (4-6) H 12/01/21 05:12 Ketones Quantitative Small (Negative) 11/30/21 01:04 Calcium 9.2 mg/dL (8.4-10.2) 12/02/21 05:25 Phosphorus 2.60 mg/dL (2.5-4.5) 12/01/21 05:02 Magnesium 1.70 mg/dL (1.7-2.3) 12/01/21 05:02 Total Bilirubin 0.80 mg/dL (0.1-1.2) 11/30/21 01:04 AST 17 units/L (5-40) 11/30/21 01:04 ALT 9 units/L (7-56) 11/30/21 01:04 Alkaline Phosphatase 111 units/L (35-129) 11/30/21 01:04 Total Creatine Kinase 115 units/L (30-135) 11/30/21 01:04 CK-MB (CK-2) 3.5 ng/mL (0.0-4.0) 11/30/21 01:04 CK-MB (CK-2) Rel Index 3.0 (0-4) 11/30/21 01:04 Troponin T < 0.010 ng/mL (0.00-0.029) 11/30/21 01:04 Total Protein 7.3 g/dL (6.3-8.2) 11/30/21 01:04 Albumin 4.2 g/dL (3.9-5) 11/30/21 01:04 Albumin/Globulin Ratio 1.4 % 11/30/21 01:04 Triglycerides 113 mg/dL (2-149) 12/01/21 05:12 Cholesterol 274 mg/dL (50-199) H 12/01/21 05:12 LDL Cholesterol Direct 218 mg/dL (50-130) H 12/01/21 05:12 HDL Cholesterol 43 mg/dL (40-59) 12/01/21 05:12 Cholesterol/HDL Ratio 6.37 % 12/01/21 05:12 Vitamin B12 1766 pg/mL (211-911) H 12/01/21 05:12 TSH 20.280 mlU/mL (0.270-4.200) H 12/01/21 05:12 Urine Color Straw (Yellow) 11/30/21 01:35 Urine Turbidity Clear (Clear) 11/30/21 01:35 Urine pH 5.0 (5.0-7.0) 11/30/21 01:35 Ur Specific [place] 1.021 (1.003-1.030) 11/30/21 01:35 Urine Protein <15 mg/dl mg/dL (Negative) 11/30/21 01:35 Urine Glucose (UA) >=500 mg/dL (Negative) 11/30/21 01:35 Urine Ketones 20 mg/dL (Negative) 11/30/21 01:35 Urine Blood Mod (Negative) 11/30/21 01:35 Urine Nitrite Neg (Negative) 11/30/21 01:35 Urine Bilirubin Neg (Negative) 11/30/21 01:35 Urine Urobilinogen < 2.0 mg/dL (<2.0) 11/30/21 01:35 Ur Leukocyte Esterase Neg (Negative) 11/30/21 01:35 Urine WBC (Auto) 2.0 /HPF (0.0-6.0) 11/30/21 01:35 Urine RBC (Auto) 4.0 /HPF (0.0-6.0) 11/30/21 01:35 Padilla/IV: Voiding Method External Female Catheter Active Medications - Current Medications Current Medications: Generic Name Dose Route Start Last Admin Trade Name Freq PRN Reason Stop Dose Admin Acetaminophen 650 mg 11/30/21 03:54 Acetaminophen 325 Mg Tab PO Q6H PRN Pain MILD(1-3)/Fever >100.5/BELL Dextrose 50 ml 11/30/21 16:30 Dextrose 50% In Water (25gm) 50 Ml Syringe IV Q30MIN PRN Hypoglycemia Protocol Enoxaparin Sodium 30 mg 11/30/21 22:00 12/01/21 22:04 Enoxaparin 30 Mg/0.3 Ml Inj SUB-Q 30 mg QHS [facility] Administration Protocol Famotidine 20 mg 12/01/21 10:00 12/01/21 10:31 Famotidine 20 Mg Tab PO 20 mg QDAY SADE Administration Hydralazine HCl 10 mg 12/01/21 00:56 12/01/21 01:11 Hydralazine 20 Mg/1 Ml Inj IV 10 mg Q4HR PRN Administration Hypertension Sodium Chloride 1,000 mls @ 75 mls/hr 12/02/21 08:00 Nacl 0.9% 1000 Ml IV DIRECT SADE Insulin Glargine 22 units 12/01/21 22:00 12/01/21 21:34 Insulin Glargine 100 Units/Ml SUB-Q 22 units QHS [facility] Administration Insulin Human Regular 0 units 11/30/21 16:30 12/01/21 21:32 Insulin Regular, Human 100 Units/1 Ml SUB-Q 8 units ACHS [facility] Administration Protocol Levothyroxine Sodium 125 mcg 12/01/21 14:00 12/01/21 15:12 Levothyroxine 125 Mcg Tab PO 125 mcg QDAY [facility] Administration Magnesium Hydroxide 30 ml 11/30/21 03:54 Magnesium Hydroxide (Mom) Oral Liqd Udc PO Q4H PRN Constipation Nifedipine 30 mg 12/01/21 14:00 12/01/21 15:00 Nifedipine Xl 30 Mg Tab PO 30 mg QDAY [facility] Administration Ondansetron HCl 4 mg 11/30/21 03:54 Ondansetron 4 Mg/2 Ml Inj IV Q8H PRN Nausea And Vomiting Senna 17.2 mg 11/30/21 22:00 12/01/21 22:04 Sennosides 8.6 Mg Tab PO 17.2 mg QHS SADE Administration Sodium Chloride 10 ml 11/30/21 10:00 12/01/21 21:40 Sodium Chloride 0.9% 10 Ml Flush Syringe IV 10 ml BID SAED Administration Sodium Chloride 10 ml 11/30/21 03:54 Sodium Chloride 0.9% 10 Ml Flush Syringe IV PRN PRN LINE FLUSH Nutrition/Malnutrition Assess - Dietary Evaluation Nutrition/Malnutrition Findings: Nutrition Notes Start: 11/30/21 16:02 Freq: Status: Active Protocol: Document 11/30/21 16:02 KETURAH (Rec: 11/30/21 16:11 KETURAH [id number]) Nutrition Notes Need for Assessment generated from: MD Order,Education Initial or Follow up Brief Note Current Diagnosis Diabetes,Hypertension Other Pertinent Diagnosis Hyperglycemia, Fall, GERD. Current Diet NPO (since 11/30 12:36). Height 5 ft 5 in Weight 75.75 kg [place] Body Weight (kg) 56.81 BMI 27.8 Intake Prior to Admission Good Weight change and time frame Pt denies having loss body weight [employer]. Weight Status Overweight Subjective/Other Information RD consult for Nutrition Education. Pt currently on NPO. Pt on Room Air, O2 saturation @ 96%, according to Physical Assessment History notes. Pt still in critical condition , not a candidate for Nutrition Education at the time, will assess feasibility on F/U. Percent of energy/protein needs met: Pt currently on NPO. Nutrition Intervention Follow-Up By: 12/07/21 Additional Comments Nutrition education will be provided on F/U, if feasible. Continue monitoring food tolerance, %PO intake of meals , and BM.
--- NOTE | 2021-12-02 07:53 | Progress Note ---
Assessment and Plan 76-year-old -[place] female with known history of hypertension, diabetes mellitus and GERD, Migranes and asthma brought into the emergency room today after having a fall. Patient was said to have been disoriented and fell hitting the back of her head. She denies any injury to the head, denies any headache and denies any blurry vision. She denies any loss of consciousness. Patients surgical history CABG, Hysterectomy. Patient has no history of smoking, alcohol or drug abuse. 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 Allergic to albuterol,atenolol, Cipro, Ibuprofen, Insulin detemir, Metformin. Blood glucose check on the field by EMS was said to be greater than 500. Work-up in the emergency room , CT scan of the head was unremarkable, chest x- ray shows atelectasis bilaterally. Lab reveals blood glucose of 720, sodium of 133. Small amount of ketone. Hemoglobin 14.7 and hematocrit 44.4. Patient has been started on IV fluid and insulin drip. Patient presently alert, awake, weak and resting on room air. O2 saturation 97%. No acute respiratory distress at rest. Patient afebrile, No Leukocytosis, Blood pressure 127/62, Pulse 61, Respirations 20 Patient is on Lovenox, Famotidine, I/V fluids NSS, and Insulin. - Patient Problems (1) Bilateral pulmonary infiltrates on chest x-ray Current Visit: Yes Status: Acute Plan to address problem: Could be atelectasis. Patient afebrile. No leukocytosis. Recommend to take deep breaths and cough. (2) Fall Current Visit: Yes Status: Acute Plan to address problem: Management as per primary care. (3) Hyperglycemia Current Visit: Yes Status: Acute Plan to address problem: Last blood sugur 397. Patient is on I/V fluids and Insulin. Management as per primary care. Subjective Date of service: 12/02/21 Principal diagnosis: Hyperglycemia; AMS; S/P GLF; Obesity; H/O Asthma; CAD; H/O Migraines Interval history: 76-year-old -[place] female with known history of hypertension, diabetes mellitus and GERD, Migranes and asthma brought into the emergency room today after having a fall. Patient was said to have been disoriented and fell hitting the back of her head. She denies any injury to the head, denies any headache and denies any blurry vision. She denies any loss of consciousness. Patients surgical history CABG, Hysterectomy. Patient has no history of smoking, alcohol or drug abuse. 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 Allergic to albuterol,atenolol, Cipro, Ibuprofen, Insulin detemir, Metformin. Blood glucose check on the field by EMS was said to be greater than 500. Work-up in the emergency room , CT scan of the head was unremarkable, chest x- ray shows atelectasis bilaterally. Lab reveals blood glucose of 720, sodium of 133. Small amount of ketone. Hemoglobin 14.7 and hematocrit 44.4. Patient has been started on IV fluid and insulin drip. Patient presently alert, awake, weak and resting on room air. O2 saturation 97%. No acute respiratory distress at rest. Patient afebrile, No Leukocytosis, Blood pressure 127/62, Pulse 61, Respirations 20 Patient is on Lovenox, Famotidine, I/V fluids NSS, and Insulin. Objective Vital Signs - 12hr 12/01/21 12/01/21 12/01/21 20:00 20:50 23:34 Temperature 97.9 F 97.9 F Pulse Rate 64 65 Respiratory 16 16 Rate Blood Pressure 132/53 130/42 O2 Sat by Pulse 100 95 97 Oximetry 12/02/21 12/02/21 12/02/21 00:00 04:00 04:48 Temperature 98.2 F Pulse Rate 59 L Respiratory 16 Rate Blood Pressure 150/60 O2 Sat by Pulse 98 99 96 Oximetry Constitutional: no acute distress, alert, other (Weak.) Eyes: non-icteric ENT: oropharynx moist Neck: supple, no lymphadenopathy, no JVD Effort: normal Ascultation: Bilateral: diminished breath sounds Percussion: Bilateral: not dull Cardiovascular: regular rate and rhythm Gastrointestinal: normoactive bowel sounds, soft, non-tender, non-distended (protuberant) Integumentary: normal Extremities: no cyanosis, no edema, pulses normal, no ischemia or petechiae Neurologic: non-focal exam (grossly), pupils equal and round, CN II-XII normal Psychiatric: mood appropriate, depressed CBC and BMP: 12/01/21 05:02 12/03/21 07:24 Abnormal lab findings: Abnormal Labs 11/30/21 11/30/21 11/30/21 01:04 01:04 05:28 Hgb 14.7 H Hct 44.4 H Lymph % (Auto) 12.1 L Lymph # (Auto) 0.7 L Seg Neutrophils % 80.1 H Sodium 133 L Potassium 5.1 H Chloride 91.7 L Glucose 720 H* POC Glucose 471 H Hemoglobin A1c Magnesium Cholesterol LDL Cholesterol Direct Vitamin B12 TSH 11/30/21 11/30/21 11/30/21 06:28 07:29 08:03 Hgb Hct Lymph % (Auto) Lymph # (Auto) Seg Neutrophils % Sodium Potassium Chloride Glucose 302 H POC Glucose 423 H 375 H Hemoglobin A1c Magnesium 1.60 L Cholesterol LDL Cholesterol Direct Vitamin B12 TSH 11/30/21 11/30/21 11/30/21 08:31 09:41 10:36 Hgb Hct Lymph % (Auto) Lymph # (Auto) Seg Neutrophils % Sodium Potassium Chloride Glucose POC Glucose 319 H 180 H 127 H Hemoglobin A1c Magnesium Cholesterol LDL Cholesterol Direct Vitamin B12 TSH 11/30/21 11/30/21 11/30/21 11:27 12:26 15:12 Hgb Hct Lymph % (Auto) Lymph # (Auto) Seg Neutrophils % Sodium Potassium Chloride Glucose POC Glucose 117 H 114 H 180 H Hemoglobin A1c Magnesium Cholesterol LDL Cholesterol Direct Vitamin B12 TSH 11/30/21 11/30/21 11/30/21 16:41 21:14 23:05 Hgb Hct Lymph % (Auto) Lymph # (Auto) Seg Neutrophils % Sodium 132 L D Potassium Chloride 94.8 L Glucose 430 H POC Glucose 145 H 390 H Hemoglobin A1c Magnesium 1.60 L Cholesterol LDL Cholesterol Direct Vitamin B12 TSH 12/01/21 12/01/21 12/01/21 05:02 05:02 05:12 Hgb 14.6 H Hct 43.4 H Lymph % (Auto) Lymph # (Auto) 1.1 L Seg Neutrophils % Sodium 136 L Potassium Chloride 95.4 L Glucose 390 H POC Glucose Hemoglobin A1c 15.0 H Magnesium Cholesterol LDL Cholesterol Direct Vitamin B12 TSH 12/01/21 12/01/21 12/01/21 05:12 05:12 05:12 Hgb Hct Lymph % (Auto) Lymph # (Auto) Seg Neutrophils % Sodium Potassium Chloride Glucose POC Glucose Hemoglobin A1c Magnesium Cholesterol 274 H LDL Cholesterol Direct 218 H Vitamin B12 1766 H TSH 20.280 H 12/01/21 12/01/21 12/01/21 10:02 16:24 21:20 Hgb Hct Lymph % (Auto) Lymph # (Auto) Seg Neutrophils % Sodium Potassium Chloride Glucose POC Glucose 355 H 370 H 555 H Hemoglobin A1c Magnesium Cholesterol LDL Cholesterol Direct Vitamin B12 TSH 12/02/21 05:25 Hgb Hct Lymph % (Auto) Lymph # (Auto) Seg Neutrophils % Sodium 127 L D Potassium Chloride 90.3 L Glucose 380 H POC Glucose Hemoglobin A1c Magnesium Cholesterol LDL Cholesterol Direct Vitamin B12 TSH Chest x-ray: report reviewed, image reviewed Additional Studies: CHEST 1 VIEW 11/30/2021 12:45 AM INDICATION / CLINICAL INFORMATION: Syncope. COMPARISON: 2 views of the chest from 09/03/2018. FINDINGS: SUPPORT DEVICES: None. HEART / MEDIASTINUM: Normal size of the cardiac silhouette with sternotomy changes. LUNGS / PLEURA: There are bibasilar opacities with otherwise clear lungs. No significant pleural effusion. No pneumothorax. ADDITIONAL FINDINGS: No significant additional findings. IMPRESSION: Bibasilar opacities are favored to represent atelectasis. Please correlate with the clinical findings to exclude pneumonia. Allied health notes reviewed: nursing
[2021-12-02] MEDS: INSULIN GLARGINE 100 UNITS/ML SUB-Q SCH (09:04)
[2021-12-02] MEDS: FAMOTIDINE 20 MG TAB PO SCH (09:05)
[2021-12-02] MEDS: INSULIN REGULAR, HUMAN 100 UNITS/1 ML SUB-Q SCH ×4 (09:05→22:17)
[2021-12-02] MEDS: LEVOTHYROXINE 125 MCG TAB PO SCH (09:06)
[2021-12-02] MEDS: NIFEdipine XL 30 MG TAB PO SCH (09:06)
[2021-12-02] MEDS: SODIUM CHLORIDE 0.9% 1000 ML 1,000 ML IV SCH (09:16)
--- NOTE | 2021-12-02 13:27 | Progress Note ---
Assessment and Plan Assessment and Plan 76-year-old -[place] female with known history of hypertension, diabetes mellitus and GERD brought into the emergency room today after having a fall. Patient was said to have been disoriented today and fell hitting the back of her head. She denies any injury to the head, denies any headache and denies any blurry vision. She denies any loss of consciousness. Blood glucose check on the field by EMS was said to be greater than 500. - Patient Problems # Fall at home and or momentarily LOC as per pt. -she is dizzy and is with left pronantor drift and unsteady gait -MRI brain is unremarkable- slight diffuse slowing -EEG is normal awake record -US acrotid <50% -A1C#15 -LDL#218 -TSH#20.8 -ASA 81 mg -Lipitor 80 mg -check orthostatic . -Hyponatremia -127 # Hyperglycemia -Patient in mild DKA. -Patient placed on IV fluid and insulin drip. She will be closely monitored in the intensive care unit. -We will monitor Accu-Cheks closely. -A1C#15 -today G#555 # poorly controlled HTN -Initial BP 189/71 -control BP<150/80 -MRI brain # Hx of medication none compliance -pt. is out of her Bs medications -? BP medication intake # DVT prophylaxis -Patient placed on subcutaneous heparin. # Full code status -Patient is full code. Will follow as needed Subjective Principal diagnosis: Hyperglycemia; AMS; S/P GLF; Obesity; H/O Asthma; CAD; H/O Migraines Interval history: doing well no complaint today MRI Brain is unremarkable US carotid <50% bilateral Objective - Vital Sign Vital Signs - 12hr 12/02/21 12/02/21 12/02/21 04:00 04:48 07:48 Temperature 98.2 F 97.7 F Pulse Rate 59 L 61 Respiratory 16 Rate Blood Pressure 150/60 127/62 O2 Sat by Pulse 99 96 97 Oximetry - General Apperance Constitutional: comfortable - EENT EENT: PERRL, mucous membranes moist - Respiratory Respiratory: lungs clear, rhonchi - Cardiovascular Cardiovascular: regular rate, normal S1, normal S2 Extremities: no peripheral edema bilat, no clubbing, cyanosis - Gastrointestinal Gastrointestinal: normoactive bowel sounds - Integumentary Integumentary: normal - Neurologic Cranial nerve examination: PERRL, EOMI, intact Speech examination: intact Detailed motor examination: grossly full strength in - Laboratory Findings CBC and BMP: 12/01/21 05:02 12/02/21 05:25 Abnormal Lab Findings: Abnormal Labs 11/30/21 11/30/21 11/30/21 01:04 01:04 05:28 Hgb 14.7 H Hct 44.4 H Lymph % (Auto) 12.1 L Lymph # (Auto) 0.7 L Seg Neutrophils % 80.1 H Sodium 133 L Potassium 5.1 H Chloride 91.7 L Glucose 720 H* POC Glucose 471 H Hemoglobin A1c Magnesium Cholesterol LDL Cholesterol Direct Vitamin B12 TSH 11/30/21 11/30/21 11/30/21 06:28 07:29 08:03 Hgb Hct Lymph % (Auto) Lymph # (Auto) Seg Neutrophils % Sodium Potassium Chloride Glucose 302 H POC Glucose 423 H 375 H Hemoglobin A1c Magnesium 1.60 L Cholesterol LDL Cholesterol Direct Vitamin B12 TSH 11/30/21 11/30/21 11/30/21 08:31 09:41 10:36 Hgb Hct Lymph % (Auto) Lymph # (Auto) Seg Neutrophils % Sodium Potassium Chloride Glucose POC Glucose 319 H 180 H 127 H Hemoglobin A1c Magnesium Cholesterol LDL Cholesterol Direct Vitamin B12 TSH 11/30/21 11/30/21 11/30/21 11:27 12:26 15:12 Hgb Hct Lymph % (Auto) Lymph # (Auto) Seg Neutrophils % Sodium Potassium Chloride Glucose POC Glucose 117 H 114 H 180 H Hemoglobin A1c Magnesium Cholesterol LDL Cholesterol Direct Vitamin B12 TSH 11/30/21 11/30/21 11/30/21 16:41 21:14 23:05 Hgb Hct Lymph % (Auto) Lymph # (Auto) Seg Neutrophils % Sodium 132 L D Potassium Chloride 94.8 L Glucose 430 H POC Glucose 145 H 390 H Hemoglobin A1c Magnesium 1.60 L Cholesterol LDL Cholesterol Direct Vitamin B12 TSH 12/01/21 12/01/21 12/01/21 05:02 05:02 05:12 Hgb 14.6 H Hct 43.4 H Lymph % (Auto) Lymph # (Auto) 1.1 L Seg Neutrophils % Sodium 136 L Potassium Chloride 95.4 L Glucose 390 H POC Glucose Hemoglobin A1c 15.0 H Magnesium Cholesterol LDL Cholesterol Direct Vitamin B12 TSH 12/01/21 12/01/21 12/01/21 05:12 05:12 05:12 Hgb Hct Lymph % (Auto) Lymph # (Auto) Seg Neutrophils % Sodium Potassium Chloride Glucose POC Glucose Hemoglobin A1c Magnesium Cholesterol 274 H LDL Cholesterol Direct 218 H Vitamin B12 1766 H TSH 20.280 H 12/01/21 12/01/21 12/01/21 10:02 16:24 21:20 Hgb Hct Lymph % (Auto) Lymph # (Auto) Seg Neutrophils % Sodium Potassium Chloride Glucose POC Glucose 355 H 370 H 555 H Hemoglobin A1c Magnesium Cholesterol LDL Cholesterol Direct Vitamin B12 TSH 12/02/21 05:25 Hgb Hct Lymph % (Auto) Lymph # (Auto) Seg Neutrophils % Sodium 127 L D Potassium Chloride 90.3 L Glucose 380 H POC Glucose Hemoglobin A1c Magnesium Cholesterol LDL Cholesterol Direct Vitamin B12 TSH
[2021-12-02] MEDS ORDERED: INSULIN GLARGINE 100 UNITS/ML SUB-Q SCH (22:00)
[2021-12-02] MEDS: ENOXAPARIN 30 MG/0.3 ML INJ SUB-Q SCH (22:16)
[2021-12-02] MEDS: SENNOSIDES 8.6 MG TAB PO SCH (22:17)
[2021-12-03 08:03] LABS: BUN/Creatinine Ratio 17; Blood Urea Nitrogen 15 mg/dL (7-17); Calcium 8.4 mg/dL (8.4-10.2); Hemolysis Index 12
[2021-12-03] MEDS: LEVOTHYROXINE 125 MCG TAB PO SCH (10:08)
[2021-12-03] MEDS: NIFEdipine XL 30 MG TAB PO SCH (10:08)
[2021-12-03] MEDS: FAMOTIDINE 20 MG TAB PO SCH (10:08)
[2021-12-03] MEDS: INSULIN GLARGINE 100 UNITS/ML SUB-Q SCH (10:09)
[2021-12-03] MEDS: INSULIN REGULAR, HUMAN 100 UNITS/1 ML SUB-Q SCH ×4 (10:09→22:09)
--- NOTE | 2021-12-03 13:09 | Progress Note ---
Assessment and Plan Assessment and Plan 76-year-old -[place] female with known history of hypertension, diabetes mellitus and GERD brought into the emergency room today after having a fall. Patient was said to have been disoriented today and fell hitting the back of her head. She denies any injury to the head, denies any headache and denies any blurry vision. She denies any loss of consciousness. Blood glucose check on the field by EMS was said to be greater than 500. - Patient Problems # Fall at home and or momentarily LOC as per pt. -she is dizzy and is with left pronantor drift and unsteady gait -MRI brain is unremarkable- slight diffuse slowing -EEG is normal awake record -US acrotid <50% -A1C#15 -LDL#218 -TSH#20.8 -ASA 81 mg -Lipitor 80 mg -check orthostatic . -Hyponatremia -127 # Hyperglycemia -Patient in mild DKA. -Patient placed on IV fluid and insulin drip. She will be closely monitored in the intensive care unit. -We will monitor Accu-Cheks closely. -A1C#15 -today G#555 # poorly controlled HTN -Initial BP 189/71 -control BP<150/80 -MRI brain # Hx of medication none compliance -pt. is out of her Bs medications -? BP medication intake # DVT prophylaxis -Patient placed on subcutaneous heparin. # Full code status -Patient is full code. Will sign off Subjective Date of service: 12/03/21 Principal diagnosis: Hyperglycemia; AMS; S/P GLF; Obesity; H/O Asthma; CAD; H/O Migraines Interval history: doing well no complaint today MRI Brain is unremarkable US carotid <50% bilateral Objective - Vital Sign Vital Signs - 12hr 12/03/21 12/03/21 12/03/21 03:53 08:02 10:00 Temperature 98.8 F 98.2 F Pulse Rate 62 61 Respiratory 12 18 Rate Blood Pressure 145/52 148/63 O2 Sat by Pulse 97 94 98 Oximetry 12/03/21 11:29 Temperature 97.8 F Pulse Rate 60 Respiratory 18 Rate Blood Pressure 138/59 O2 Sat by Pulse 100 Oximetry - General Apperance Constitutional: comfortable - EENT EENT: PERRL, mucous membranes moist - Respiratory Respiratory: lungs clear, rhonchi - Cardiovascular Cardiovascular: regular rate, normal S1, normal S2 Extremities: no peripheral edema bilat, no clubbing, cyanosis - Gastrointestinal Gastrointestinal: normoactive bowel sounds - Integumentary Integumentary: normal - Neurologic Cranial nerve examination: PERRL, EOMI, intact Speech examination: intact Detailed motor examination: grossly full strength in - Laboratory Findings CBC and BMP: 12/01/21 05:02 12/03/21 07:24 Abnormal Lab Findings: Abnormal Labs 11/30/21 11/30/21 11/30/21 01:04 01:04 05:28 Hgb 14.7 H Hct 44.4 H Lymph % (Auto) 12.1 L Lymph # (Auto) 0.7 L Seg Neutrophils % 80.1 H Sodium 133 L Potassium 5.1 H Chloride 91.7 L Glucose 720 H* POC Glucose 471 H Hemoglobin A1c Magnesium Cholesterol LDL Cholesterol Direct Vitamin B12 TSH 11/30/21 11/30/21 11/30/21 06:28 07:29 08:03 Hgb Hct Lymph % (Auto) Lymph # (Auto) Seg Neutrophils % Sodium Potassium Chloride Glucose 302 H POC Glucose 423 H 375 H Hemoglobin A1c Magnesium 1.60 L Cholesterol LDL Cholesterol Direct Vitamin B12 TSH 11/30/21 11/30/21 11/30/21 08:31 09:41 10:36 Hgb Hct Lymph % (Auto) Lymph # (Auto) Seg Neutrophils % Sodium Potassium Chloride Glucose POC Glucose 319 H 180 H 127 H Hemoglobin A1c Magnesium Cholesterol LDL Cholesterol Direct Vitamin B12 TSH 11/30/21 11/30/21 11/30/21 11:27 12:26 15:12 Hgb Hct Lymph % (Auto) Lymph # (Auto) Seg Neutrophils % Sodium Potassium Chloride Glucose POC Glucose 117 H 114 H 180 H Hemoglobin A1c Magnesium Cholesterol LDL Cholesterol Direct Vitamin B12 TSH 11/30/21 11/30/21 11/30/21 16:41 21:14 23:05 Hgb Hct Lymph % (Auto) Lymph # (Auto) Seg Neutrophils % Sodium 132 L D Potassium Chloride 94.8 L Glucose 430 H POC Glucose 145 H 390 H Hemoglobin A1c Magnesium 1.60 L Cholesterol LDL Cholesterol Direct Vitamin B12 TSH 12/01/21 12/01/21 12/01/21 05:02 05:02 05:12 Hgb 14.6 H Hct 43.4 H Lymph % (Auto) Lymph # (Auto) 1.1 L Seg Neutrophils % Sodium 136 L Potassium Chloride 95.4 L Glucose 390 H POC Glucose Hemoglobin A1c 15.0 H Magnesium Cholesterol LDL Cholesterol Direct Vitamin B12 TSH 12/01/21 12/01/21 12/01/21 05:12 05:12 05:12 Hgb Hct Lymph % (Auto) Lymph # (Auto) Seg Neutrophils % Sodium Potassium Chloride Glucose POC Glucose Hemoglobin A1c Magnesium Cholesterol 274 H LDL Cholesterol Direct 218 H Vitamin B12 1766 H TSH 20.280 H 12/01/21 12/01/21 12/01/21 10:02 16:24 21:20 Hgb Hct Lymph % (Auto) Lymph # (Auto) Seg Neutrophils % Sodium Potassium Chloride Glucose POC Glucose 355 H 370 H 555 H Hemoglobin A1c Magnesium Cholesterol LDL Cholesterol Direct Vitamin B12 TSH 12/02/21 12/02/21 12/02/21 05:25 07:50 11:23 Hgb Hct Lymph % (Auto) Lymph # (Auto) Seg Neutrophils % Sodium 127 L D Potassium Chloride 90.3 L Glucose 380 H POC Glucose 397 H 580 H Hemoglobin A1c Magnesium Cholesterol LDL Cholesterol Direct Vitamin B12 TSH 12/02/21 12/02/21 12/03/21 16:43 21:33 07:24 Hgb Hct Lymph % (Auto) Lymph # (Auto) Seg Neutrophils % Sodium Potassium Chloride Glucose 234 H POC Glucose 498 H 366 H Hemoglobin A1c Magnesium Cholesterol LDL Cholesterol Direct Vitamin B12 TSH 12/03/21 11:55 Hgb Hct Lymph % (Auto) Lymph # (Auto) Seg Neutrophils % Sodium Potassium Chloride Glucose POC Glucose 376 H Hemoglobin A1c Magnesium Cholesterol LDL Cholesterol Direct Vitamin B12 TSH
--- NOTE | 2021-12-03 13:47 | Progress Note ---
Assessment and Plan Assessment and plan: #Type II Diabetes with Hyperglycemia #DKA -s/p insulin gtt while in ICU -patient reports taking insulin outpatient but has been unable to get a new prescription -lantus increased to 35U QHS; 5U humulog with meals added -continue SSI + accuchecks -diabetic diet #Fall -continue fall precautions -Per history unclear if patient lost consciousness -MRI unremarkable and carotid Doppler shows less than 50% stenosis bilaterally -EEG pending -CT head unremarkable for acute findings -PT evaluation: subacute rehab; awaiting follow up visit -patient agreeable to subacute rehab also okay with HH with PT -Neurology consulted, assistance appreciated #Hypertension -Patient reports not taking her blood pressure medications -continue nifedipine 30 mg daily -Goal SBP less than 160 #Hyponatremia-resolved -Na 138 now -will continue to monitor #Hypothyroidism -TSH 20, patient not taking medications at home -Continue levothyroxine at home dose #Hypomagnesemia -will replete and monitor #Advanced care planning -Disease education conducted, care plan discussed, diagnoses discussed, prognosis discussed, and patient acknowledges understanding with care plan -Time: +30 min History Interval history: No acute events overnight. Patient updated about current care plan. She has no complaints or discomfort at this time. Hospitalist Physical - Physical exam Narrative exam: GENERAL: Well-developed well-nourished. Sitting in a chair, in no acute distress. CHEST/LUNGS: CTAB on room air HEART/CARDIOVASCULAR: RRR. No murmur, rubs or gallops appreciated. ABDOMEN: +BS. NT/ND. NEURO: No focal motor deficit. Follows all commands. EXTREMITIES: No cyanosis, clubbing or edema. PSYCH: Cooperative. - Constitutional Vitals: Temp Pulse Resp BP Pulse Ox 97.8 F 60 18 138/59 100 12/03/21 11:29 12/03/21 11:29 12/03/21 11:29 12/03/21 11:29 12/03/21 11:29 General appearance: Present: no acute distress, well-nourished, other (Dry oral mucosa) HEART Score - HEART Score Troponin: Troponin T < 0.010 ng/mL (0.00-0.029) 11/30/21 01:04 Results - Labs CBC & Chem 7: 12/01/21 05:02 12/03/21 07:24 Labs: Laboratory Last Values WBC 5.1 K/mm3 (4.5-11.0) 12/01/21 05:02 RBC 4.92 M/mm3 (3.65-5.03) 12/01/21 05:02 Hgb 14.6 gm/dl (10.1-14.3) H 12/01/21 05:02 Hct 43.4 % (30.3-42.9) H 12/01/21 05:02 MCV 88 fl (79-97) 12/01/21 05:02 MCH 30 pg (28-32) 12/01/21 05:02 MCHC 34 % (30-34) 12/01/21 05:02 RDW 14.2 % (13.2-15.2) 12/01/21 05:02 Plt Count 142 K/mm3 (140-440) 12/01/21 05:02 Lymph % (Auto) 21.1 % (13.4-35.0) 12/01/21 05:02 [place] % (Auto) 6.7 % (0.0-7.3) 12/01/21 05:02 Eos % (Auto) 1.5 % (0.0-4.3) 12/01/21 05:02 Baso % (Auto) 1.4 % (0.0-1.8) 12/01/21 05:02 Lymph # (Auto) 1.1 K/mm3 (1.2-5.4) L 12/01/21 05:02 [place] # (Auto) 0.3 K/mm3 (0.0-0.8) 12/01/21 05:02 Eos # (Auto) 0.1 K/mm3 (0.0-0.4) 12/01/21 05:02 Baso # (Auto) 0.1 K/mm3 (0.0-0.1) 12/01/21 05:02 Seg Neutrophils % 69.3 % (40.0-70.0) 12/01/21 05:02 Seg Neutrophils # 3.5 K/mm3 (1.8-7.7) 12/01/21 05:02 Sodium 138 mmol/L (137-145) D 12/03/21 07:24 Potassium 4.0 mmol/L (3.6-5.0) 12/03/21 07:24 Chloride 102.2 mmol/L (98-107) 12/03/21 07:24 Carbon Dioxide 23 mmol/L (22-30) 12/03/21 07:24 Anion Gap 17 mmol/L 12/03/21 07:24 BUN 15 mg/dL (7-17) 12/03/21 07:24 Creatinine 0.9 mg/dL (0.6-1.2) 12/03/21 07:24 Estimated GFR > 60 ml/min 12/03/21 07:24 BUN/Creatinine Ratio 17 % 12/03/21 07:24 Glucose 234 mg/dL (65-100) H 12/03/21 07:24 POC Glucose 376 mg/dL (70-105) H 12/03/21 11:55 Hemoglobin A1c 15.0 % (4-6) H 12/01/21 05:12 Ketones Quantitative Small (Negative) 11/30/21 01:04 Calcium 8.4 mg/dL (8.4-10.2) 12/03/21 07:24 Phosphorus 2.60 mg/dL (2.5-4.5) 12/01/21 05:02 Magnesium 1.70 mg/dL (1.7-2.3) 12/01/21 05:02 Total Bilirubin 0.80 mg/dL (0.1-1.2) 11/30/21 01:04 AST 17 units/L (5-40) 11/30/21 01:04 ALT 9 units/L (7-56) 11/30/21 01:04 Alkaline Phosphatase 111 units/L (35-129) 11/30/21 01:04 Total Creatine Kinase 115 units/L (30-135) 11/30/21 01:04 CK-MB (CK-2) 3.5 ng/mL (0.0-4.0) 11/30/21 01:04 CK-MB (CK-2) Rel Index 3.0 (0-4) 11/30/21 01:04 Troponin T < 0.010 ng/mL (0.00-0.029) 11/30/21 01:04 Total Protein 7.3 g/dL (6.3-8.2) 11/30/21 01:04 Albumin 4.2 g/dL (3.9-5) 11/30/21 01:04 Albumin/Globulin Ratio 1.4 % 11/30/21 01:04 Triglycerides 113 mg/dL (2-149) 12/01/21 05:12 Cholesterol 274 mg/dL (50-199) H 12/01/21 05:12 LDL Cholesterol Direct 218 mg/dL (50-130) H 12/01/21 05:12 HDL Cholesterol 43 mg/dL (40-59) 12/01/21 05:12 Cholesterol/HDL Ratio 6.37 % 12/01/21 05:12 Vitamin B12 1766 pg/mL (211-911) H 12/01/21 05:12 TSH 20.280 mlU/mL (0.270-4.200) H 12/01/21 05:12 Urine Color Straw (Yellow) 11/30/21 01:35 Urine Turbidity Clear (Clear) 11/30/21 01:35 Urine pH 5.0 (5.0-7.0) 11/30/21 01:35 Ur Specific [place] 1.021 (1.003-1.030) 11/30/21 01:35 Urine Protein <15 mg/dl mg/dL (Negative) 11/30/21 01:35 Urine Glucose (UA) >=500 mg/dL (Negative) 11/30/21 01:35 Urine Ketones 20 mg/dL (Negative) 11/30/21 01:35 Urine Blood Mod (Negative) 11/30/21 01:35 Urine Nitrite Neg (Negative) 11/30/21 01:35 Urine Bilirubin Neg (Negative) 11/30/21 01:35 Urine Urobilinogen < 2.0 mg/dL (<2.0) 11/30/21 01:35 Ur Leukocyte Esterase Neg (Negative) 11/30/21 01:35 Urine WBC (Auto) 2.0 /HPF (0.0-6.0) 11/30/21 01:35 Urine RBC (Auto) 4.0 /HPF (0.0-6.0) 11/30/21 01:35 Padilla/IV: Voiding Method External Female Catheter Active Medications - Current Medications Current Medications: Generic Name Dose Route Start Last Admin Trade Name Freq PRN Reason Stop Dose Admin Acetaminophen 650 mg 11/30/21 03:54 Acetaminophen 325 Mg Tab PO Q6H PRN Pain MILD(1-3)/Fever >100.5/BELL Dextrose 50 ml 11/30/21 16:30 Dextrose 50% In Water (25gm) 50 Ml Syringe IV Q30MIN PRN Hypoglycemia Protocol Enoxaparin Sodium 40 mg 12/03/21 22:00 Enoxaparin 40 Mg/0.4 Ml Inj SUB-Q QHS [facility] Protocol Famotidine 20 mg 12/01/21 10:00 12/03/21 10:08 Famotidine 20 Mg Tab PO 20 mg QDAY SADE Administration Hydralazine HCl 10 mg 12/01/21 00:56 12/01/21 01:11 Hydralazine 20 Mg/1 Ml Inj IV 10 mg Q4HR PRN Administration Hypertension Sodium Chloride 1,000 mls @ 75 mls/hr 12/02/21 08:15 12/02/21 09:16 Nacl 0.9% 1000 Ml IV 75 mls/hr DIRECT SADE Administration Insulin Glargine 30 units 12/02/21 22:00 12/02/21 22:17 Insulin Glargine 100 Units/Ml SUB-Q 30 units QHS SADE Administration Insulin Glargine 8 units 12/02/21 09:00 12/03/21 10:09 Insulin Glargine 100 Units/Ml SUB-Q 8 units QAMDIAB SADE Administration Insulin Human Regular 0 units 11/30/21 16:30 12/03/21 10:09 Insulin Regular, Human 100 Units/1 Ml SUB-Q 3 units ACHS SADE Administration Protocol Insulin Human Regular 5 units 12/03/21 16:30 Insulin Regular, Human 100 Units/1 Ml IV AC [facility] Levothyroxine Sodium 125 mcg 12/01/21 14:00 12/03/21 10:08 Levothyroxine 125 Mcg Tab PO 125 mcg QDAY SADE Administration Magnesium Hydroxide 30 ml 11/30/21 03:54 Magnesium Hydroxide (Mom) Oral Liqd Udc PO Q4H PRN Constipation Nifedipine 30 mg 12/01/21 14:00 12/03/21 10:08 Nifedipine Xl 30 Mg Tab PO 30 mg QDAY SADE Administration Ondansetron HCl 4 mg 11/30/21 03:54 Ondansetron 4 Mg/2 Ml Inj IV Q8H PRN Nausea And Vomiting Senna 17.2 mg 11/30/21 22:00 12/02/21 22:17 Sennosides 8.6 Mg Tab PO Not Given QHS SADE Sodium Chloride 10 ml 11/30/21 10:00 12/03/21 10:11 Sodium Chloride 0.9% 10 Ml Flush Syringe IV 10 ml BID SADE Administration Sodium Chloride 10 ml 11/30/21 03:54 Sodium Chloride 0.9% 10 Ml Flush Syringe IV PRN PRN LINE FLUSH Nutrition/Malnutrition Assess - Dietary Evaluation Nutrition/Malnutrition Findings: Nutrition Notes Start: 11/30/21 16:02 Freq: Status: Active Protocol: Document 11/30/21 16:02 KETURAH (Rec: 11/30/21 16:11 KETURAH [id number]) Nutrition Notes Need for Assessment generated from: MD Order,Education Initial or Follow up Brief Note Current Diagnosis Diabetes,Hypertension Other Pertinent Diagnosis Hyperglycemia, Fall, GERD. Current Diet NPO (since 11/30 12:36). 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 Weight Status Overweight Subjective/Other Information RD consult for Nutrition Education. Pt currently on NPO. Pt on Room Air, O2 saturation @ 96%, according to Physical Assessment History notes. Pt still in critical condition , not a candidate for Nutrition Education at the time, will assess feasibility on F/U. Percent of energy/protein needs met: Pt currently on NPO. Nutrition Intervention Follow-Up By: 12/07/21 Additional Comments Nutrition education will be provided on F/U, if feasible. Continue monitoring food tolerance, %PO intake of meals , and BM.
[2021-12-03] MEDS: INSULIN REGULAR, HUMAN 100 UNITS/1 ML IV SCH ×4 (13:48→18:56)
--- NOTE | 2021-12-03 15:47 | Progress Note ---
Assessment and Plan 76-year-old -[place] female with known history of hypertension, diabetes mellitus and GERD, Migranes and asthma brought into the emergency room today after having a fall. Patient was said to have been disoriented and fell hitting the back of her head. She denies any injury to the head, denies any headache and denies any blurry vision. She denies any loss of consciousness. Patients surgical history CABG, Hysterectomy. Patient has no history of smoking, alcohol or drug abuse. 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 Allergic to albuterol,atenolol, Cipro, Ibuprofen, Insulin detemir, Metformin. Blood glucose check on the field by EMS was said to be greater than 500. Work-up in the emergency room , CT scan of the head was unremarkable, chest x- ray shows atelectasis bilaterally. Lab reveals blood glucose of 720, sodium of 133. Small amount of ketone. Hemoglobin 14.7 and hematocrit 44.4. Patient has been started on IV fluid and insulin drip. Patient presently alert, awake, weak and resting on room air. O2 saturation 100%. No acute respiratory distress at rest. Denies chest pain, shortness of breath or cough. Patient afebrile, No Leukocytosis, Blood pressure 123/55, Pulse 60, Respirations 18 Patient is on Lovenox, Famotidine, Brovanna/Budesonide aerosol treatments, I/V fluids NSS, and Insulin. - Patient Problems (1) Bilateral pulmonary infiltrates on chest x-ray Current Visit: Yes Status: Acute Plan to address problem: Could be atelectasis. Patient afebrile. No leukocytosis. Recommend to take deep breaths and cough. Aerosolized bronchodilators to improve mucociliary clearence. (2) Fall Current Visit: Yes Status: Acute Plan to address problem: Management as per primary care. (3) Hyperglycemia Current Visit: Yes Status: Acute Plan to address problem: Last blood sugur 275. Patient is on I/V fluids and Insulin. Management as per primary care. Subjective Date of service: 12/03/21 Principal diagnosis: Hyperglycemia; AMS; S/P GLF; Obesity; H/O Asthma; CAD; H/O Migraines Interval history: 76-year-old -[place] female with known history of hypertension, diabetes mellitus and GERD, Migranes and asthma brought into the emergency room today after having a fall. Patient was said to have been disoriented and fell hitting the back of her head. She denies any injury to the head, denies any headache and denies any blurry vision. She denies any loss of consciousness. P atients surgical history CABG, Hysterectomy. Patient has no history of smoking, alcohol or drug abuse. 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 Allergic to albuterol,atenolol, Cipro, Ibuprofen, Insulin detemir, Metformin. Blood glucose check on the field by EMS was said to be greater than 500. Work-up in the emergency room , CT scan of the head was unremarkable, chest x- ray shows atelectasis bilaterally. Lab reveals blood glucose of 720, sodium of 133. Small amount of ketone. Hemoglobin 14.7 and hematocrit 44.4. Patient has been started on IV fluid and insulin drip. Patient presently alert, awake, weak and resting on room air. O2 saturation 100%. No acute respiratory distress at rest. Denies chest pain, shortness of breath or cough. Patient afebrile, No Leukocytosis, Blood pressure 123/55, Pulse 60, Respirations 18 Patient is on Lovenox, Famotidine, Brovanna/Budesonide aerosol treatments, I/V fluids NSS, and Insulin. Objective Vital Signs - 12hr 12/03/21 12/03/21 12/03/21 03:53 08:02 10:00 Temperature 98.8 F 98.2 F Pulse Rate 62 61 Respiratory 12 18 Rate Blood Pressure 145/52 148/63 O2 Sat by Pulse 97 94 98 Oximetry 12/03/21 11:29 Temperature 97.8 F Pulse Rate 60 Respiratory 18 Rate Blood Pressure 138/59 O2 Sat by Pulse 100 Oximetry Constitutional: no acute distress, alert Eyes: non-icteric ENT: oropharynx moist Neck: supple, no lymphadenopathy, no JVD Effort: normal Ascultation: Bilateral: rhonchi Percussion: Bilateral: not dull Cardiovascular: regular rate and rhythm Gastrointestinal: normoactive bowel sounds Integumentary: normal Extremities: no cyanosis, no edema, pulses normal, no ischemia or petechiae Neurologic: non-focal exam (grossly), pupils equal and round, CN II-XII normal Psychiatric: mood appropriate, depressed CBC and BMP: 12/01/21 05:02 04/30/22 07:24 Abnormal lab findings: Abnormal Labs 11/30/21 11/30/21 11/30/21 01:04 01:04 05:28 Hgb 14.7 H Hct 44.4 H Lymph % (Auto) 12.1 L Lymph # (Auto) 0.7 L Seg Neutrophils % 80.1 H Sodium 133 L Potassium 5.1 H Chloride 91.7 L Glucose 720 H* POC Glucose 471 H Hemoglobin A1c Magnesium Cholesterol LDL Cholesterol Direct Vitamin B12 TSH 11/30/21 11/30/21 11/30/21 06:28 07:29 08:03 Hgb Hct Lymph % (Auto) Lymph # (Auto) Seg Neutrophils % Sodium Potassium Chloride Glucose 302 H POC Glucose 423 H 375 H Hemoglobin A1c Magnesium 1.60 L Cholesterol LDL Cholesterol Direct Vitamin B12 TSH 11/30/21 11/30/21 11/30/21 08:31 09:41 10:36 Hgb Hct Lymph % (Auto) Lymph # (Auto) Seg Neutrophils % Sodium Potassium Chloride Glucose POC Glucose 319 H 180 H 127 H Hemoglobin A1c Magnesium Cholesterol LDL Cholesterol Direct Vitamin B12 TSH 11/30/21 11/30/21 11/30/21 11:27 12:26 15:12 Hgb Hct Lymph % (Auto) Lymph # (Auto) Seg Neutrophils % Sodium Potassium Chloride Glucose POC Glucose 117 H 114 H 180 H Hemoglobin A1c Magnesium Cholesterol LDL Cholesterol Direct Vitamin B12 TSH 11/30/21 11/30/21 11/30/21 16:41 21:14 23:05 Hgb Hct Lymph % (Auto) Lymph # (Auto) Seg Neutrophils % Sodium 132 L D Potassium Chloride 94.8 L Glucose 430 H POC Glucose 145 H 390 H Hemoglobin A1c Magnesium 1.60 L Cholesterol LDL Cholesterol Direct Vitamin B12 TSH 12/01/21 12/01/21 12/01/21 05:02 05:02 05:12 Hgb 14.6 H Hct 43.4 H Lymph % (Auto) Lymph # (Auto) 1.1 L Seg Neutrophils % Sodium 136 L Potassium Chloride 95.4 L Glucose 390 H POC Glucose Hemoglobin A1c 15.0 H Magnesium Cholesterol LDL Cholesterol Direct Vitamin B12 TSH 12/01/21 12/01/21 12/01/21 05:12 05:12 05:12 Hgb Hct Lymph % (Auto) Lymph # (Auto) Seg Neutrophils % Sodium Potassium Chloride Glucose POC Glucose Hemoglobin A1c Magnesium Cholesterol 274 H LDL Cholesterol Direct 218 H Vitamin B12 1766 H TSH 20.280 H 12/01/21 12/01/21 12/01/21 10:02 16:24 21:20 Hgb Hct Lymph % (Auto) Lymph # (Auto) Seg Neutrophils % Sodium Potassium Chloride Glucose POC Glucose 355 H 370 H 555 H Hemoglobin A1c Magnesium Cholesterol LDL Cholesterol Direct Vitamin B12 TSH 12/02/21 12/02/21 12/02/21 05:25 07:50 11:23 Hgb Hct Lymph % (Auto) Lymph # (Auto) Seg Neutrophils % Sodium 127 L D Potassium Chloride 90.3 L Glucose 380 H POC Glucose 397 H 580 H Hemoglobin A1c Magnesium Cholesterol LDL Cholesterol Direct Vitamin B12 TSH 12/02/21 12/02/21 12/03/21 16:43 21:33 07:24 Hgb Hct Lymph % (Auto) Lymph # (Auto) Seg Neutrophils % Sodium Potassium Chloride Glucose 234 H POC Glucose 498 H 366 H Hemoglobin A1c Magnesium Cholesterol LDL Cholesterol Direct Vitamin B12 TSH 12/03/21 11:55 Hgb Hct Lymph % (Auto) Lymph # (Auto) Seg Neutrophils % Sodium Potassium Chloride Glucose POC Glucose 376 H Hemoglobin A1c Magnesium Cholesterol LDL Cholesterol Direct Vitamin B12 TSH Allied health notes reviewed: nursing
[2021-12-03] MEDS ORDERED: ALBUTEROL 2.5 MG/3 ML NEBU IH PRN (15:57)
[2021-12-03] MEDS: BUDESONIDE 0.5 MG/2 ML NEBU IH SCH (21:40)
[2021-12-03] MEDS: ARFORMOTEROL 15 MCG/2 ML NEBU IH SCH (21:40)
[2021-12-03] MEDS ORDERED: INSULIN GLARGINE 100 UNITS/ML SUB-Q SCH (22:00)
[2021-12-03] MEDS: SENNOSIDES 8.6 MG TAB PO SCH (22:03)
[2021-12-03] MEDS: ENOXAPARIN 40 MG/0.4 ML INJ SUB-Q SCH (22:04)
[2021-12-03] MEDS: SODIUM CHLORIDE 0.9% 1000 ML 1,000 ML IV SCH (22:23)
[2021-12-04] MEDS: ARFORMOTEROL 15 MCG/2 ML NEBU IH SCH ×2 (07:36→20:27)
[2021-12-04] MEDS: BUDESONIDE 0.5 MG/2 ML NEBU IH SCH ×2 (07:36→20:27)
[2021-12-04] MEDS: INSULIN REGULAR, HUMAN 100 UNITS/1 ML SUB-Q SCH ×4 (08:00→22:05)
[2021-12-04] MEDS: INSULIN REGULAR, HUMAN 100 UNITS/1 ML IV SCH ×3 (10:17→18:07)
[2021-12-04] MEDS: FAMOTIDINE 20 MG TAB PO SCH (10:24)
[2021-12-04] MEDS: NIFEdipine XL 30 MG TAB PO SCH (10:24)
[2021-12-04] MEDS: LEVOTHYROXINE 125 MCG TAB PO SCH (10:25)
--- NOTE | 2021-12-04 13:08 | Progress Note ---
Assessment and Plan Assessment and plan: #Type II Diabetes with Hyperglycemia #DKA -s/p insulin gtt while in ICU -patient reports taking insulin outpatient but has been unable to get a new prescription -lantus increased to 40U QHS; 8U humulog with meals added -continue SSI + accuchecks -diabetic diet #Fall -continue fall precautions -Per history unclear if patient lost consciousness -MRI unremarkable and carotid Doppler shows less than 50% stenosis bilaterally -EEG pending -CT head unremarkable for acute findings -PT evaluation: subacute rehab; awaiting follow up visit -patient agreeable to subacute rehab also okay with HH with PT -Neurology consulted, assistance appreciated #Hypertension -Patient reports not taking her blood pressure medications -continue nifedipine 30 mg daily -Goal SBP less than 160 #Hyponatremia-resolved -will continue to monitor #Hypothyroidism -TSH 20, patient not taking medications at home -Continue levothyroxine at home dose #Hypomagnesemia -will replete and monitor #Advanced care planning -Disease education conducted, care plan discussed, diagnoses discussed, prognosis discussed, and patient acknowledges understanding with care plan -Time: +30 min History Interval history: No acute events overnight. Patient updated about current care plan. She has no complaints or discomfort at this time. Hospitalist Physical - Physical exam Narrative exam: GENERAL: Well-developed well-nourished. Sitting in a chair, in no acute distress. CHEST/LUNGS: CTAB on room air HEART/CARDIOVASCULAR: RRR. No murmur, rubs or gallops appreciated. ABDOMEN: +BS. NT/ND. NEURO: No focal motor deficit. Follows all commands. EXTREMITIES: No cyanosis, clubbing or edema. PSYCH: Cooperative. - Constitutional Vitals: Temp Pulse Resp BP Pulse Ox 98.0 F 61 18 139/56 100 12/04/21 11:32 12/04/21 11:32 12/04/21 11:32 12/04/21 11:32 12/04/21 11:32 General appearance: Present: no acute distress, well-nourished, other (Dry oral mucosa) HEART Score - HEART Score Troponin: Troponin T < 0.010 ng/mL (0.00-0.029) 11/30/21 01:04 Results - Labs CBC & Chem 7: 12/01/21 05:02 12/03/21 07:24 Labs: Laboratory Last Values WBC 5.1 K/mm3 (4.5-11.0) 12/01/21 05:02 RBC 4.92 M/mm3 (3.65-5.03) 12/01/21 05:02 Hgb 14.6 gm/dl (10.1-14.3) H 12/01/21 05:02 Hct 43.4 % (30.3-42.9) H 12/01/21 05:02 MCV 88 fl (79-97) 12/01/21 05:02 MCH 30 pg (28-32) 12/01/21 05:02 MCHC 34 % (30-34) 12/01/21 05:02 RDW 14.2 % (13.2-15.2) 12/01/21 05:02 Plt Count 142 K/mm3 (140-440) 12/01/21 05:02 Lymph % (Auto) 21.1 % (13.4-35.0) 12/01/21 05:02 [place] % (Auto) 6.7 % (0.0-7.3) 12/01/21 05:02 Eos % (Auto) 1.5 % (0.0-4.3) 12/01/21 05:02 Baso % (Auto) 1.4 % (0.0-1.8) 12/01/21 05:02 Lymph # (Auto) 1.1 K/mm3 (1.2-5.4) L 12/01/21 05:02 [place] # (Auto) 0.3 K/mm3 (0.0-0.8) 12/01/21 05:02 Eos # (Auto) 0.1 K/mm3 (0.0-0.4) 12/01/21 05:02 Baso # (Auto) 0.1 K/mm3 (0.0-0.1) 12/01/21 05:02 Seg Neutrophils % 69.3 % (40.0-70.0) 12/01/21 05:02 Seg Neutrophils # 3.5 K/mm3 (1.8-7.7) 12/01/21 05:02 Sodium 138 mmol/L (137-145) D 12/03/21 07:24 Potassium 4.0 mmol/L (3.6-5.0) 12/03/21 07:24 Chloride 102.2 mmol/L (98-107) 12/03/21 07:24 Carbon Dioxide 23 mmol/L (22-30) 12/03/21 07:24 Anion Gap 17 mmol/L 12/03/21 07:24 BUN 15 mg/dL (7-17) 12/03/21 07:24 Creatinine 0.9 mg/dL (0.6-1.2) 12/03/21 07:24 Estimated GFR > 60 ml/min 12/03/21 07:24 BUN/Creatinine Ratio 17 % 12/03/21 07:24 Glucose 234 mg/dL (65-100) H 12/03/21 07:24 POC Glucose 254 mg/dL (70-105) H 12/04/21 11:33 Hemoglobin A1c 15.0 % (4-6) H 12/01/21 05:12 Ketones Quantitative Small (Negative) 11/30/21 01:04 Calcium 8.4 mg/dL (8.4-10.2) 12/03/21 07:24 Phosphorus 2.60 mg/dL (2.5-4.5) 12/01/21 05:02 Magnesium 1.70 mg/dL (1.7-2.3) 12/01/21 05:02 Total Bilirubin 0.80 mg/dL (0.1-1.2) 11/30/21 01:04 AST 17 units/L (5-40) 11/30/21 01:04 ALT 9 units/L (7-56) 11/30/21 01:04 Alkaline Phosphatase 111 units/L (35-129) 11/30/21 01:04 Total Creatine Kinase 115 units/L (30-135) 11/30/21 01:04 CK-MB (CK-2) 3.5 ng/mL (0.0-4.0) 11/30/21 01:04 CK-MB (CK-2) Rel Index 3.0 (0-4) 11/30/21 01:04 Troponin T < 0.010 ng/mL (0.00-0.029) 11/30/21 01:04 Total Protein 7.3 g/dL (6.3-8.2) 11/30/21 01:04 Albumin 4.2 g/dL (3.9-5) 11/30/21 01:04 Albumin/Globulin Ratio 1.4 % 11/30/21 01:04 Triglycerides 113 mg/dL (2-149) 12/01/21 05:12 Cholesterol 274 mg/dL (50-199) H 12/01/21 05:12 LDL Cholesterol Direct 218 mg/dL (50-130) H 12/01/21 05:12 HDL Cholesterol 43 mg/dL (40-59) 12/01/21 05:12 Cholesterol/HDL Ratio 6.37 % 12/01/21 05:12 Vitamin B12 1766 pg/mL (211-911) H 12/01/21 05:12 TSH 20.280 mlU/mL (0.270-4.200) H 12/01/21 05:12 Urine Color Straw (Yellow) 11/30/21 01:35 Urine Turbidity Clear (Clear) 11/30/21 01:35 Urine pH 5.0 (5.0-7.0) 11/30/21 01:35 Ur Specific [place] 1.021 (1.003-1.030) 11/30/21 01:35 Urine Protein <15 mg/dl mg/dL (Negative) 11/30/21 01:35 Urine Glucose (UA) >=500 mg/dL (Negative) 11/30/21 01:35 Urine Ketones 20 mg/dL (Negative) 11/30/21 01:35 Urine Blood Mod (Negative) 11/30/21 01:35 Urine Nitrite Neg (Negative) 11/30/21 01:35 Urine Bilirubin Neg (Negative) 11/30/21 01:35 Urine Urobilinogen < 2.0 mg/dL (<2.0) 11/30/21 01:35 Ur Leukocyte Esterase Neg (Negative) 11/30/21 01:35 Urine WBC (Auto) 2.0 /HPF (0.0-6.0) 11/30/21 01:35 Urine RBC (Auto) 4.0 /HPF (0.0-6.0) 11/30/21 01:35 [place]/IV: Voiding Method External Female Catheter Active Medications - Current Medications Current Medications: Generic Name Dose Route Start Last Admin Trade Name Freq PRN Reason Stop Dose Admin Acetaminophen 650 mg 11/30/21 03:54 12/04/21 10:24 Acetaminophen 325 Mg Tab PO 650 mg Q6H PRN Administration Pain MILD(1-3)/Fever >100.5/BELL Albuterol 2.5 mg 12/03/21 15:57 Albuterol 2.5 Mg/3 Ml Nebu IH Q4HRT PRN Shortness Of Breath Arformoterol Tartrate 15 mcg 12/03/21 20:00 12/04/21 07:36 Arformoterol 15 Mcg/2 Ml Nebu IH 15 mcg Q12HRT SADE Administration Budesonide 0.5 mg 12/03/21 20:00 12/04/21 07:36 Budesonide 0.5 Mg/2 Ml Nebu IH 0.5 mg Q12HRT SADE Administration Dextrose 50 ml 11/30/21 16:30 Dextrose 50% In Water (25gm) 50 Ml Syringe IV Q30MIN PRN Hypoglycemia Protocol Enoxaparin Sodium 40 mg 12/03/21 22:00 12/03/21 22:04 Enoxaparin 40 Mg/0.4 Ml Inj SUB-Q 40 mg QHS SADE Administration Protocol Famotidine 20 mg 12/01/21 10:00 12/04/21 10:24 Famotidine 20 Mg Tab PO 20 mg QDAY SADE Administration Hydralazine HCl 10 mg 12/01/21 00:56 12/01/21 01:11 Hydralazine 20 Mg/1 Ml Inj IV 10 mg Q4HR PRN Administration Hypertension Sodium Chloride 1,000 mls @ 75 mls/hr 12/02/21 08:15 12/03/21 22:23 Nacl 0.9% 1000 Ml IV 75 mls/hr DIRECT SADE Administration Insulin Glargine 40 units 12/04/21 13:06 Insulin Glargine 100 Units/Ml SUB-Q QHS [facility] Insulin Human Regular 0 units 11/30/21 16:30 12/04/21 08:00 Insulin Regular, Human 100 Units/1 Ml SUB-Q Not Given ACHS SADE Protocol Insulin Human Regular 8 units 12/04/21 13:06 Insulin Regular, Human 100 Units/1 Ml IV AC SADE Levothyroxine Sodium 125 mcg 12/01/21 14:00 12/04/21 10:25 Levothyroxine 125 Mcg Tab PO 125 mcg QDAY SADE Administration Magnesium Hydroxide 30 ml 11/30/21 03:54 Magnesium Hydroxide (Mom) Oral Liqd Udc PO Q4H PRN Constipation Nifedipine 30 mg 12/01/21 14:00 12/04/21 10:24 Nifedipine Xl 30 Mg Tab PO 30 mg QDAY SADE Administration Ondansetron HCl 4 mg 11/30/21 03:54 Ondansetron 4 Mg/2 Ml Inj IV Q8H PRN Nausea And Vomiting Senna 17.2 mg 11/30/21 22:00 12/03/21 22:03 Sennosides 8.6 Mg Tab PO 17.2 mg QHS SADE Administration Sodium Chloride 10 ml 11/30/21 10:00 12/04/21 10:25 Sodium Chloride 0.9% 10 Ml Flush Syringe IV 10 ml BID SADE Administration Sodium Chloride 10 ml 11/30/21 03:54 Sodium Chloride 0.9% 10 Ml Flush Syringe IV PRN PRN LINE FLUSH Nutrition/Malnutrition Assess - Dietary Evaluation Nutrition/Malnutrition Findings: Nutrition Notes Start: 11/30/21 16:02 Freq: Status: Active Protocol: Document 11/30/21 16:02 KETURAH (Rec: 11/30/21 16:11 KETURAH [id number]) Nutrition Notes Need for Assessment generated from: MD Order,Education Initial or Follow up Brief Note Current Diagnosis Diabetes,Hypertension Other Pertinent Diagnosis Hyperglycemia, Fall, GERD. Current Diet NPO (since 11/30 12:36). Height 5 ft 5 in Weight 75.75 kg [place] Body Weight (kg) 56.81 BMI 27.8 Intake Prior to Admission Good Weight change and time frame Pt denies having loss body weight [employer]. Weight Status Overweight Subjective/Other Information RD consult for Nutrition Education. Pt currently on NPO. Pt on Room Air, O2 saturation @ 96%, according to Physical Assessment History notes. Pt still in critical condition , not a candidate for Nutrition Education at the time, will assess feasibility on F/U. Percent of energy/protein needs met: Pt currently on NPO. Nutrition Intervention Follow-Up By: 12/07/21 Additional Comments Nutrition education will be provided on F/U, if feasible. Continue monitoring food tolerance, %PO intake of meals , and BM.
--- NOTE | 2021-12-04 14:59 | Progress Note ---
Assessment and Plan 76-year-old -[place]ub[place] female with known history of hypertension, diabetes mellitus and GERD, Migranes and asthma brought into the emergency room today after having a fall. Patient was said to have been disoriented and fell hitting the back of her head. She denies any injury to the head, denies any headache and denies any blurry vision. She denies any loss of consciousness. Patients surgical history CABG, Hysterectomy. Patient has no history of smoking, alcohol or drug abuse. 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 Allergic to albuterol,atenolol, Cipro, Ibuprofen, Insulin detemir, Metformin. Blood glucose check on the field by EMS was said to be greater than 500. Work-up in the emergency room , CT scan of the head was unremarkable, chest x- ray shows atelectasis bilaterally. Lab reveals blood glucose of 720, sodium of 133. Small amount of ketone. Hemoglobin 14.7 and hematocrit 44.4. Patient has been started on IV fluid and insulin drip. atient presently alert, awake, sitting up in chair. resting on room air. O2 saturation 100%. No acute respiratory distress at rest. Denies chest pain, shortness of breath or cough. Patient afebrile, No Leukocytosis, Blood pressure 139/56, Pulse 61, Respirations 18 Patient is on Lovenox, Famotidine, Brovanna/Budesonide aerosol treatments, I/V f luids NSS, and Insulin. - Patient Problems (1) Bilateral pulmonary infiltrates on chest x-ray Current Visit: Yes Status: Acute Plan to address problem: Could be atelectasis. Patient afebrile. No leukocytosis. Recommend to take deep breaths and cough. Aerosolized bronchodilators to improve mucociliary clearence. (2) Fall Current Visit: Yes Status: Acute Plan to address problem: Management as per primary care. (3) Hyperglycemia Current Visit: Yes Status: Acute Plan to address problem: Last blood sugur 376. Patient is on I/V fluids and Insulin. Management as per primary care. Subjective Date of service: 12/04/21 Principal diagnosis: Hyperglycemia; AMS; S/P GLF; Obesity; H/O Asthma; CAD; H/O Migraines Interval history: 76-year-old -[place] female with known history of hypertension, diabetes mellitus and GERD, Migranes and asthma brought into the emergency room today after having a fall. Patient was said to have been disoriented and fell hitting the back of her head. She denies any injury to the head, denies any headache and denies any blurry vision. She denies any loss of consciousness. Patients surgical history CABG, Hysterectomy. Patient has no history of smoking, alcohol or drug abuse. 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 Allergic to albuterol,atenolol, Cipro, Ibuprofen, Insulin detemir, Metformin. Blood glucose check on the field by EMS was said to be greater than 500. Work-up in the emergency room , CT scan of the head was unremarkable, chest x- ray shows atelectasis bilaterally. Lab reveals blood glucose of 720, sodium of 133. Small amount of ketone. Hemoglobin 14.7 and hematocrit 44.4. Patient has been started on IV fluid and insulin drip. Patient presently alert, awake, sitting up in chair. resting on room air. O2 saturation 100%. No acute respiratory distress at rest. Denies chest pain, shortness of breath or cough. Patient afebrile, No Leukocytosis, Blood pressure 139/56, Pulse 61, Respirations 18 Patient is on Lovenox, Famotidine, Brovanna/Budesonide aerosol treatments, I/V fluids NSS, and Insulin. Objective Vital Signs - 12hr 12/04/21 12/04/21 12/04/21 03:58 07:36 08:00 Temperature 97.4 F L 98.1 F Pulse Rate 56 L 67 Pulse Rate [ 62 Anterior Bilateral Throughout] Pulse Rate [ From Monitor] Pulse Rate [ Left Radial] Respiratory 18 18 Rate Respiratory 18 Rate [Anterior Bilateral Throughout] Blood Pressure 154/65 136/65 O2 Sat by Pulse 97 100 Oximetry 12/04/21 12/04/21 10:00 11:32 Temperature 98.0 F Pulse Rate 61 Pulse Rate [ Anterior Bilateral Throughout] Pulse Rate [ 68 From Monitor] Pulse Rate [ 68 Left Radial] Respiratory 18 Rate Respiratory Rate [Anterior Bilateral Throughout] Blood Pressure 139/56 O2 Sat by Pulse 98 100 Oximetry Constitutional: no acute distress, alert Eyes: non-icteric ENT: oropharynx moist Neck: supple, no lymphadenopathy, no JVD Effort: normal Ascultation: Bilateral: diminished breath sounds, rhonchi Percussion: Bilateral: not dull Cardiovascular: regular rate and rhythm Gastrointestinal: normoactive bowel sounds Integumentary: normal Extremities: no cyanosis, no edema, pulses normal, no ischemia or petechiae Neurologic: non-focal exam (grossly), pupils equal and round, CN II-XII normal Psychiatric: mood appropriate, depressed CBC and BMP: 12/01/21 05:02 12/03/21 07:24 Abnormal lab findings: Abnormal Labs 11/30/21 11/30/21 11/30/21 01:04 01:04 05:28 Hgb 14.7 H Hct 44.4 H Lymph % (Auto) 12.1 L Lymph # (Auto) 0.7 L Seg Neutrophils % 80.1 H Sodium 133 L Potassium 5.1 H Chloride 91.7 L Glucose 720 H* POC Glucose 471 H Hemoglobin A1c Magnesium Cholesterol LDL Cholesterol Direct Vitamin B12 TSH 11/30/21 11/30/21 11/30/21 06:28 07:29 08:03 Hgb Hct Lymph % (Auto) Lymph # (Auto) Seg Neutrophils % Sodium Potassium Chloride Glucose 302 H POC Glucose 423 H 375 H Hemoglobin A1c Magnesium 1.60 L Cholesterol LDL Cholesterol Direct Vitamin B12 TSH 11/30/21 11/30/21 11/30/21 08:31 09:41 10:36 Hgb Hct Lymph % (Auto) Lymph # (Auto) Seg Neutrophils % Sodium Potassium Chloride Glucose POC Glucose 319 H 180 H 127 H Hemoglobin A1c Magnesium Cholesterol LDL Cholesterol Direct Vitamin B12 TSH 11/30/21 11/30/21 11/30/21 11:27 12:26 15:12 Hgb Hct Lymph % (Auto) Lymph # (Auto) Seg Neutrophils % Sodium Potassium Chloride Glucose POC Glucose 117 H 114 H 180 H Hemoglobin A1c Magnesium Cholesterol LDL Cholesterol Direct Vitamin B12 TSH 11/30/21 11/30/21 11/30/21 16:41 21:14 23:05 Hgb Hct Lymph % (Auto) Lymph # (Auto) Seg Neutrophils % Sodium 132 L D Potassium Chloride 94.8 L Glucose 430 H POC Glucose 145 H 390 H Hemoglobin A1c Magnesium 1.60 L Cholesterol LDL Cholesterol Direct Vitamin B12 TSH 12/01/21 12/01/21 12/01/21 05:02 05:02 05:12 Hgb 14.6 H Hct 43.4 H Lymph % (Auto) Lymph # (Auto) 1.1 L Seg Neutrophils % Sodium 136 L Potassium Chloride 95.4 L Glucose 390 H POC Glucose Hemoglobin A1c 15.0 H Magnesium Cholesterol LDL Cholesterol Direct Vitamin B12 TSH 12/01/21 12/01/21 12/01/21 05:12 05:12 05:12 Hgb Hct Lymph % (Auto) Lymph # (Auto) Seg Neutrophils % Sodium Potassium Chloride Glucose POC Glucose Hemoglobin A1c Magnesium Cholesterol 274 H LDL Cholesterol Direct 218 H Vitamin B12 1766 H TSH 20.280 H 12/01/21 12/01/21 12/01/21 10:02 16:24 21:20 Hgb Hct Lymph % (Auto) Lymph # (Auto) Seg Neutrophils % Sodium Potassium Chloride Glucose POC Glucose 355 H 370 H 555 H Hemoglobin A1c Magnesium Cholesterol LDL Cholesterol Direct Vitamin B12 TSH 12/02/21 12/02/21 12/02/21 05:25 07:50 11:23 Hgb Hct Lymph % (Auto) Lymph # (Auto) Seg Neutrophils % Sodium 127 L D Potassium Chloride 90.3 L Glucose 380 H POC Glucose 397 H 580 H Hemoglobin A1c Magnesium Cholesterol LDL Cholesterol Direct Vitamin B12 TSH 12/02/21 12/02/21 12/03/21 16:43 21:33 07:24 Hgb Hct Lymph % (Auto) Lymph # (Auto) Seg Neutrophils % Sodium Potassium Chloride Glucose 234 H POC Glucose 498 H 366 H Hemoglobin A1c Magnesium Cholesterol LDL Cholesterol Direct Vitamin B12 TSH 12/03/21 12/03/21 12/03/21 11:55 16:03 20:43 Hgb Hct Lymph % (Auto) Lymph # (Auto) Seg Neutrophils % Sodium Potassium Chloride Glucose POC Glucose 376 H 275 H 331 H Hemoglobin A1c Magnesium Cholesterol LDL Cholesterol Direct Vitamin B12 TSH 12/04/21 11:33 Hgb Hct Lymph % (Auto) Lymph # (Auto) Seg Neutrophils % Sodium Potassium Chloride Glucose POC Glucose 254 H Hemoglobin A1c Magnesium Cholesterol LDL Cholesterol Direct Vitamin B12 TSH Allied health notes reviewed: nursing
[2021-12-04] MEDS: SODIUM CHLORIDE 0.9% 1000 ML 1,000 ML IV SCH (15:25)
[2021-12-04] MEDS: SENNOSIDES 8.6 MG TAB PO SCH (21:52)
[2021-12-04] MEDS: ENOXAPARIN 40 MG/0.4 ML INJ SUB-Q SCH (21:53)
[2021-12-04] MEDS: INSULIN GLARGINE 100 UNITS/ML SUB-Q SCH (22:05)
[2021-12-05] MEDS: NIFEdipine XL 30 MG TAB PO SCH (09:03)
[2021-12-05] MEDS: FAMOTIDINE 20 MG TAB PO SCH (09:03)
[2021-12-05] MEDS: LEVOTHYROXINE 125 MCG TAB PO SCH (09:03)
[2021-12-05] MEDS: INSULIN REGULAR, HUMAN 100 UNITS/1 ML SUB-Q SCH ×4 (09:04→21:49)
[2021-12-05] MEDS: INSULIN REGULAR, HUMAN 100 UNITS/1 ML IV SCH ×3 (09:04→17:57)
[2021-12-05] MEDS: ARFORMOTEROL 15 MCG/2 ML NEBU IH SCH ×2 (09:23→21:09)
[2021-12-05] MEDS: BUDESONIDE 0.5 MG/2 ML NEBU IH SCH ×2 (09:24→21:09)
--- NOTE | 2021-12-05 12:09 | Progress Note ---
Assessment and Plan Hyperglycemia, possible nonketotic hyperosmolar state Acute toxic metabolic encephalopathy S/P GLF Obesity HTN GERD H/O Asthma H/O Migraines Coronary artery disease - follow MRI brain report - supplemental oxygen to keep O2 sats > 90% - bronchodilators (MARTHA) with pulm hygiene per RT - to avoid nephrotoxins, renally dose all medications - mobility protocols to prevent pressure ulcers - PT/OT as tolerated - Wound care per RN/WCT - continue accuchecks with glycemic control per SSI for target blood glucose < 180 mg/dL - tobacco abstinence strongly counseled at the bedside - home oxygen evaluation at discharge - GI & VTE prophylaxis - Flu & pneumovax per protocol - Pulmonary out patient follow up for PFTs and optimization of respiratory status - continue other care per attending / other consultants - prn analgesia per pain score ... re-evaluate in am & prn Subjective Date of service: 12/05/21 Principal diagnosis: Hyperglycemia; AMS; S/P GLF; Obesity; H/O Asthma; CAD; H/O Migraines Interval history: Patient is seen today for: Hyperglycemia; Acute toxic metabolic encephalopathy; S/P GLF; Obesity; H/O Asthma; CAD; H/O Migraines Seen and examined at bedside; 24hour events reviewed; nursing and respiratory care staff consulted; no adverse overnight events reported to me; resting peacefully in bed; Objective Vital Signs - 12hr 12/05/21 12/05/21 12/05/21 04:12 08:00 08:13 Temperature 98.0 F 97.4 F L Pulse Rate 56 L 63 Pulse Rate [ 65 Anterior Bilateral Throughout] Pulse Rate [ 67 Bilateral] Pulse Rate [ From Monitor] Pulse Rate [ Left Radial] Respiratory 16 14 Rate Respiratory 17 Rate [Anterior Bilateral Throughout] Respiratory 18 Rate [Bilateral ] Blood Pressure 152/60 143/61 O2 Sat by Pulse 100 100 Oximetry 12/05/21 10:00 Temperature Pulse Rate Pulse Rate [ Anterior Bilateral Throughout] Pulse Rate [ Bilateral] Pulse Rate [ 68 From Monitor] Pulse Rate [ 68 Left Radial] Respiratory Rate Respiratory Rate [Anterior Bilateral Throughout] Respiratory Rate [Bilateral ] Blood Pressure O2 Sat by Pulse 98 Oximetry Constitutional: no acute distress, alert Eyes: non-icteric ENT: oropharynx moist Neck: supple, no lymphadenopathy, no JVD Effort: normal Ascultation: Bilateral: clear, diminished breath sounds, rhonchi Percussion: Bilateral: not dull Cardiovascular: regular rate and rhythm Gastrointestinal: normoactive bowel sounds Integumentary: normal Extremities: no cyanosis, no edema, pulses normal, no ischemia or petechiae Neurologic: non-focal exam (grossly), pupils equal and round, CN II-XII normal Psychiatric: mood appropriate, depressed CBC and BMP: 12/01/21 05:02 12/03/21 07:24 Abnormal lab findings: Abnormal Labs 11/30/21 11/30/21 11/30/21 01:04 01:04 05:28 Hgb 14.7 H Hct 44.4 H Lymph % (Auto) 12.1 L Lymph # (Auto) 0.7 L Seg Neutrophils % 80.1 H Sodium 133 L Potassium 5.1 H Chloride 91.7 L Glucose 720 H* POC Glucose 471 H Hemoglobin A1c Magnesium Cholesterol LDL Cholesterol Direct Vitamin B12 TSH 11/30/21 11/30/21 11/30/21 06:28 07:29 08:03 Hgb Hct Lymph % (Auto) Lymph # (Auto) Seg Neutrophils % Sodium Potassium Chloride Glucose 302 H POC Glucose 423 H 375 H Hemoglobin A1c Magnesium 1.60 L Cholesterol LDL Cholesterol Direct Vitamin B12 TSH 11/30/21 11/30/21 11/30/21 08:31 09:41 10:36 Hgb Hct Lymph % (Auto) Lymph # (Auto) Seg Neutrophils % Sodium Potassium Chloride Glucose POC Glucose 319 H 180 H 127 H Hemoglobin A1c Magnesium Cholesterol LDL Cholesterol Direct Vitamin B12 TSH 11/30/21 11/30/21 11/30/21 11:27 12:26 15:12 Hgb Hct Lymph % (Auto) Lymph # (Auto) Seg Neutrophils % Sodium Potassium Chloride Glucose POC Glucose 117 H 114 H 180 H Hemoglobin A1c Magnesium Cholesterol LDL Cholesterol Direct Vitamin B12 TSH 11/30/21 11/30/21 11/30/21 16:41 21:14 23:05 Hgb Hct Lymph % (Auto) Lymph # (Auto) Seg Neutrophils % Sodium 132 L D Potassium Chloride 94.8 L Glucose 430 H POC Glucose 145 H 390 H Hemoglobin A1c Magnesium 1.60 L Cholesterol LDL Cholesterol Direct Vitamin B12 TSH 12/01/21 12/01/21 12/01/21 05:02 05:02 05:12 Hgb 14.6 H Hct 43.4 H Lymph % (Auto) Lymph # (Auto) 1.1 L Seg Neutrophils % Sodium 136 L Potassium Chloride 95.4 L Glucose 390 H POC Glucose Hemoglobin A1c 15.0 H Magnesium Cholesterol LDL Cholesterol Direct Vitamin B12 TSH 12/01/21 12/01/21 12/01/21 05:12 05:12 05:12 Hgb Hct Lymph % (Auto) Lymph # (Auto) Seg Neutrophils % Sodium Potassium Chloride Glucose POC Glucose Hemoglobin A1c Magnesium Cholesterol 274 H LDL Cholesterol Direct 218 H Vitamin B12 1766 H TSH 20.280 H 12/01/21 12/01/21 12/01/21 10:02 16:24 21:20 Hgb Hct Lymph % (Auto) Lymph # (Auto) Seg Neutrophils % Sodium Potassium Chloride Glucose POC Glucose 355 H 370 H 555 H Hemoglobin A1c Magnesium Cholesterol LDL Cholesterol Direct Vitamin B12 TSH 12/02/21 12/02/21 12/02/21 05:25 07:50 11:23 Hgb Hct Lymph % (Auto) Lymph # (Auto) Seg Neutrophils % Sodium 127 L D Potassium Chloride 90.3 L Glucose 380 H POC Glucose 397 H 580 H Hemoglobin A1c Magnesium Cholesterol LDL Cholesterol Direct Vitamin B12 TSH 12/02/21 12/02/21 12/03/21 16:43 21:33 07:24 Hgb Hct Lymph % (Auto) Lymph # (Auto) Seg Neutrophils % Sodium Potassium Chloride Glucose 234 H POC Glucose 498 H 366 H Hemoglobin A1c Magnesium Cholesterol LDL Cholesterol Direct Vitamin B12 TSH 12/03/21 12/03/21 12/03/21 11:55 16:03 20:43 Hgb Hct Lymph % (Auto) Lymph # (Auto) Seg Neutrophils % Sodium Potassium Chloride Glucose POC Glucose 376 H 275 H 331 H Hemoglobin A1c Magnesium Cholesterol LDL Cholesterol Direct Vitamin B12 TSH 12/04/21 12/04/21 12/04/21 11:33 16:15 21:46 Hgb Hct Lymph % (Auto) Lymph # (Auto) Seg Neutrophils % Sodium Potassium Chloride Glucose POC Glucose 254 H 400 H 406 H Hemoglobin A1c Magnesium Cholesterol LDL Cholesterol Direct Vitamin B12 TSH 12/05/21 12/05/21 08:08 09:39 Hgb Hct Lymph % (Auto) Lymph # (Auto) Seg Neutrophils % Sodium Potassium Chloride Glucose POC Glucose 64 L 173 H Hemoglobin A1c Magnesium Cholesterol LDL Cholesterol Direct Vitamin B12 TSH Allied health notes reviewed: nursing
--- NOTE | 2021-12-05 13:27 | Electrocardiograph Report ---
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
--- NOTE | 2021-12-05 15:11 | Progress Note ---
Assessment and Plan Assessment and plan: #Type II Diabetes with Hyperglycemia #DKA -s/p insulin gtt while in ICU -patient reports taking insulin outpatient but has been unable to get a new prescription -conitnue lantus [id number] QHS; 8U humulog with meals added -continue SSI + accuchecks -diabetic diet #Fall -continue fall precautions -Per history unclear if patient lost consciousness -MRI unremarkable and carotid Doppler shows less than 50% stenosis bilaterally -EEG pending -CT head unremarkable for acute findings -PT evaluation: subacute rehab; patient finally agreeable -Neurology consulted, assistance appreciated #Hypertension -Patient reports not taking her blood pressure medications -continue nifedipine 30 mg daily -Goal SBP less than 160 #Hyponatremia-resolved -will continue to monitor #Hypothyroidism -TSH 20, patient not taking medications at home -Continue levothyroxine at home dose #Hypomagnesemia -will replete and monitor #Advanced care planning -Disease education conducted, care plan discussed, diagnoses discussed, prognosis discussed, and patient acknowledges understanding with care plan -Time: +30 min #Discharge planning -Patient decided to go to subacute rehab, will make case management aware History Interval history: No acute events overnight. Patient updated about current care plan. She has no complaints or discomfort at this time. Hospitalist Physical - Physical exam Narrative exam: GENERAL: Well-developed well-nourished. Sitting in a chair, in no acute distress. CHEST/LUNGS: CTAB on room air HEART/CARDIOVASCULAR: RRR. No murmur, rubs or gallops appreciated. ABDOMEN: +BS. NT/ND. NEURO: No focal motor deficit. Follows all commands. EXTREMITIES: No cyanosis, clubbing or edema. PSYCH: Cooperative. - Constitutional Vitals: Temp Pulse Resp BP Pulse Ox 97.4 F L 68 14 143/61 98 12/05/21 08:13 12/05/21 10:00 12/05/21 08:13 12/05/21 08:13 12/05/21 10:00 General appearance: Present: no acute distress, well-nourished, other (Dry oral mucosa) HEART Score - HEART Score Troponin: Troponin T < 0.010 ng/mL (0.00-0.029) 11/30/21 01:04 Results - Labs CBC & Chem 7: 12/01/21 05:02 12/03/21 07:24 Labs: Laboratory Last Values WBC 5.1 K/mm3 (4.5-11.0) 12/01/21 05:02 RBC 4.92 M/mm3 (3.65-5.03) 12/01/21 05:02 Hgb 14.6 gm/dl (10.1-14.3) H 12/01/21 05:02 Hct 43.4 % (30.3-42.9) H 12/01/21 05:02 MCV 88 fl (79-97) 12/01/21 05:02 MCH 30 pg (28-32) 12/01/21 05:02 MCHC 34 % (30-34) 12/01/21 05:02 RDW 14.2 % (13.2-15.2) 12/01/21 05:02 Plt Count 142 K/mm3 (140-440) 12/01/21 05:02 Lymph % (Auto) 21.1 % (13.4-35.0) 12/01/21 05:02 [place] % (Auto) 6.7 % (0.0-7.3) 12/01/21 05:02 Eos % (Auto) 1.5 % (0.0-4.3) 12/01/21 05:02 Baso % (Auto) 1.4 % (0.0-1.8) 12/01/21 05:02 Lymph # (Auto) 1.1 K/mm3 (1.2-5.4) L 12/01/21 05:02 [place] # (Auto) 0.3 K/mm3 (0.0-0.8) 12/01/21 05:02 Eos # (Auto) 0.1 K/mm3 (0.0-0.4) 12/01/21 05:02 Baso # (Auto) 0.1 K/mm3 (0.0-0.1) 12/01/21 05:02 Seg Neutrophils % 69.3 % (40.0-70.0) 12/01/21 05:02 Seg Neutrophils # 3.5 K/mm3 (1.8-7.7) 12/01/21 05:02 Sodium 138 mmol/L (137-145) D 12/03/21 07:24 Potassium 4.0 mmol/L (3.6-5.0) 12/03/21 07:24 Chloride 102.2 mmol/L (98-107) 12/03/21 07:24 Carbon Dioxide 23 mmol/L (22-30) 12/03/21 07:24 Anion Gap 17 mmol/L 12/03/21 07:24 BUN 15 mg/dL (7-17) 12/03/21 07:24 Creatinine 0.9 mg/dL (0.6-1.2) 12/03/21 07:24 Estimated GFR > 60 ml/min 12/03/21 07:24 BUN/Creatinine Ratio 17 % 12/03/21 07:24 Glucose 234 mg/dL (65-100) H 12/03/21 07:24 POC Glucose 173 mg/dL (70-105) H 12/05/21 09:39 Hemoglobin A1c 15.0 % (4-6) H 12/01/21 05:12 Ketones Quantitative Small (Negative) 11/30/21 01:04 Calcium 8.4 mg/dL (8.4-10.2) 12/03/21 07:24 Phosphorus 2.60 mg/dL (2.5-4.5) 12/01/21 05:02 Magnesium 1.70 mg/dL (1.7-2.3) 12/01/21 05:02 Total Bilirubin 0.80 mg/dL (0.1-1.2) 11/30/21 01:04 AST 17 units/L (5-40) 11/30/21 01:04 ALT 9 units/L (7-56) 11/30/21 01:04 Alkaline Phosphatase 111 units/L (35-129) 11/30/21 01:04 Total Creatine Kinase 115 units/L (30-135) 11/30/21 01:04 CK-MB (CK-2) 3.5 ng/mL (0.0-4.0) 11/30/21 01:04 CK-MB (CK-2) Rel Index 3.0 (0-4) 11/30/21 01:04 Troponin T < 0.010 ng/mL (0.00-0.029) 11/30/21 01:04 Total Protein 7.3 g/dL (6.3-8.2) 11/30/21 01:04 Albumin 4.2 g/dL (3.9-5) 11/30/21 01:04 Albumin/Globulin Ratio 1.4 % 11/30/21 01:04 Triglycerides 113 mg/dL (2-149) 12/01/21 05:12 Cholesterol 274 mg/dL (50-199) H 12/01/21 05:12 LDL Cholesterol Direct 218 mg/dL (50-130) H 12/01/21 05:12 HDL Cholesterol 43 mg/dL (40-59) 12/01/21 05:12 Cholesterol/HDL Ratio 6.37 % 12/01/21 05:12 Vitamin B12 1766 pg/mL (211-911) H 12/01/21 05:12 TSH 20.280 mlU/mL (0.270-4.200) H 12/01/21 05:12 Urine Color Straw (Yellow) 11/30/21 01:35 Urine Turbidity Clear (Clear) 11/30/21 01:35 Urine pH 5.0 (5.0-7.0) 11/30/21 01:35 Ur Specific [place] 1.021 (1.003-1.030) 11/30/21 01:35 Urine Protein <15 mg/dl mg/dL (Negative) 11/30/21 01:35 Urine Glucose (UA) >=500 mg/dL (Negative) 11/30/21 01:35 Urine Ketones 20 mg/dL (Negative) 11/30/21 01:35 Urine Blood Mod (Negative) 11/30/21 01:35 Urine Nitrite Neg (Negative) 11/30/21 01:35 Urine Bilirubin Neg (Negative) 11/30/21 01:35 Urine Urobilinogen < 2.0 mg/dL (<2.0) 11/30/21 01:35 Ur Leukocyte Esterase Neg (Negative) 11/30/21 01:35 Urine WBC (Auto) 2.0 /HPF (0.0-6.0) 11/30/21 01:35 Urine RBC (Auto) 4.0 /HPF (0.0-6.0) 11/30/21 01:35 [place]/IV: Voiding Method External Female Catheter Active Medications - Current Medications Current Medications: Generic Name Dose Route Start Last Admin Trade Name Freq PRN Reason Stop Dose Admin Acetaminophen 650 mg 11/30/21 03:54 12/04/21 10:24 Acetaminophen 325 Mg Tab PO 650 mg Q6H PRN Administration Pain MILD(1-3)/Fever >100.5/BELL Albuterol 2.5 mg 12/03/21 15:57 Albuterol 2.5 Mg/3 Ml Nebu IH Q4HRT PRN Shortness Of Breath Arformoterol Tartrate 15 mcg 12/03/21 20:00 12/05/21 09:23 Arformoterol 15 Mcg/2 Ml Nebu IH 15 mcg Q12HRT SADE Administration Budesonide 0.5 mg 12/03/21 20:00 12/05/21 09:24 Budesonide 0.5 Mg/2 Ml Nebu IH 0.5 mg Q12HRT SADE Administration Dextrose 50 ml 11/30/21 16:30 Dextrose 50% In Water (25gm) 50 Ml Syringe IV Q30MIN PRN Hypoglycemia Protocol Enoxaparin Sodium 40 mg 12/03/21 22:00 12/04/21 21:53 Enoxaparin 40 Mg/0.4 Ml Inj SUB-Q 40 mg QHS SADE Administration Protocol Famotidine 20 mg 12/01/21 10:00 12/05/21 09:03 Famotidine 20 Mg Tab PO 20 mg QDAY SADE Administration Hydralazine HCl 10 mg 12/01/21 00:56 12/01/21 01:11 Hydralazine 20 Mg/1 Ml Inj IV 10 mg Q4HR PRN Administration Hypertension Sodium Chloride 1,000 mls @ 75 mls/hr 12/02/21 08:15 12/04/21 15:25 Nacl 0.9% 1000 Ml IV 75 mls/hr DIRECT SADE Administration Insulin Glargine 40 units 12/04/21 13:06 12/04/21 22:05 Insulin Glargine 100 Units/Ml SUB-Q 40 units QHS SADE Administration Insulin Human Regular 0 units 11/30/21 16:30 12/05/21 12:56 Insulin Regular, Human 100 Units/1 Ml SUB-Q 3 units ACHS SADE Administration Protocol Insulin Human Regular 8 units 12/04/21 13:06 12/05/21 12:57 Insulin Regular, Human 100 Units/1 Ml IV 8 units AC SADE Administration Levothyroxine Sodium 125 mcg 12/01/21 14:00 12/05/21 09:03 Levothyroxine 125 Mcg Tab PO 125 mcg QDAY SADE Administration Magnesium Hydroxide 30 ml 11/30/21 03:54 Magnesium Hydroxide (Mom) Oral Liqd Udc PO Q4H PRN Constipation Nifedipine 30 mg 12/01/21 14:00 12/05/21 09:03 Nifedipine Xl 30 Mg Tab PO 30 mg QDAY SADE Administration Ondansetron HCl 4 mg 11/30/21 03:54 Ondansetron 4 Mg/2 Ml Inj IV Q8H PRN Nausea And Vomiting Senna 17.2 mg 11/30/21 22:00 12/04/21 21:52 Sennosides 8.6 Mg Tab PO 17.2 mg QHS SADE Administration Sodium Chloride 10 ml 11/30/21 10:00 12/05/21 09:41 Sodium Chloride 0.9% 10 Ml Flush Syringe IV 10 ml BID SADE Administration Sodium Chloride 10 ml 11/30/21 03:54 Sodium Chloride 0.9% 10 Ml Flush Syringe IV PRN PRN LINE FLUSH Nutrition/Malnutrition Assess - Dietary Evaluation Nutrition/Malnutrition Findings: Nutrition Notes Start: 11/30/21 16:02 Freq: Status: Active Protocol: Document 11/30/21 16:02 KETURAH (Rec: 11/30/21 16:11 KETURAH [id number]) Nutrition Notes Need for Assessment generated from: MD Order,Education Initial or Follow up Brief Note Current Diagnosis Diabetes,Hypertension Other Pertinent Diagnosis Hyperglycemia, Fall, GERD. Current Diet NPO (since 11/30 12:36). Height 5 ft 5 in Weight 75.75 kg [place] Body Weight (kg) 56.81 BMI 27.8 Intake Prior to Admission Good Weight change and time frame Pt denies having loss body weight [employer]. Weight Status Overweight Subjective/Other Information RD consult for Nutrition Education. Pt currently on NPO. Pt on Room Air, O2 saturation @ 96%, according to Physical Assessment History notes. Pt still in critical condition , not a candidate for Nutrition Education at the time, will assess feasibility on F/U. Percent of energy/protein needs met: Pt currently on NPO. Nutrition Intervention Follow-Up By: 12/07/21 Additional Comments Nutrition education will be provided on F/U, if feasible. Continue monitoring food tolerance, %PO intake of meals , and BM.
--- NOTE | 2021-12-05 18:07 | Progress Note ---
Assessment and Plan 76-year-old -Citizen Of [place] female with known history of hypertension, diabetes mellitus and GERD, Migranes and asthma brought into the emergency room today after having a fall. Patient was said to have been disoriented and fell hitting the back of her head. She denies any injury to the head, denies any headache and denies any blurry vision. She denies any loss of consciousness. Patients surgical history CABG, Hysterectomy. Patient has no history of smoking, alcohol or drug abuse. 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 Allergic to albuterol,atenolol, Cipro, Ibuprofen, Insulin detemir, Metformin. Blood glucose check on the field by EMS was said to be greater than 500. Work-up in the emergency room , CT scan of the head was unremarkable, chest x- ray shows atelectasis bilaterally. Lab reveals blood glucose of 720, sodium of 133. Small amount of ketone. Hemoglobin 14.7 and hematocrit 44.4. Patient has been started on IV fluid and insulin drip. Patient presently alert, awake, sitting up in chair. resting on room air. O2 saturation 100%. No acute respiratory distress at rest. Denies chest pain, shortness of breath or cough. Patient afebrile, No Leukocytosis, Blood pressure 147/58, Pulse 67, Respirations 18. Patients recent blood sugur dropped to 64. Recommend to recheck the blood sugur. If blood sugur is low chnage I/V fluids to D5W. Patient is on Lovenox, Famotidine, Brovanna/Budesonide aerosol treatments, I/V fluids NSS, and Insulin. - Patient Problems (1) Bilateral pulmonary infiltrates on chest x-ray Current Visit: Yes Status: Acute Plan to address problem: Could be atelectasis. Patient afebrile. No leukocytosis. Recommend to take deep breaths and cough. Aerosolized bronchodilators to improve mucociliary clearence. (2) Fall Current Visit: Yes Status: Acute Plan to address problem: Management as per primary care. (3) Hyperglycemia Current Visit: Yes Status: Acute Plan to address problem: blood sugur dropped to 64. Patient is not synptomatic. Re check the blood sugur. If still low change I/V fluids to D5 w. Management as per primary care. Subjective Date of service: 12/05/21 Principal diagnosis: Hyperglycemia; AMS; S/P GLF; Obesity; H/O Asthma; CAD; H/O Migraines Interval history: 76-year-old -Citizen Of [place] female with known history of hypertension, diabetes mellitus and GERD, Migranes and asthma brought into the emergency room today after having a fall. Patient was said to have been disoriented and fell hitting the back of her head. She denies any injury to the head, denies any headache and denies any blurry vision. She denies any loss of consciousness. Patients surgical history CABG, Hysterectomy. Patient has no history of smoking, alcohol or drug abuse. 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 Allergic to albuterol,atenolol, Cipro, Ibuprofen, Insulin detemir, Metformin. Blood glucose check on the field by EMS was said to be greater than 500. Work-up in the emergency room , CT scan of the head was unremarkable, chest x- ray shows atelectasis bilaterally. Lab reveals blood glucose of 720, sodium of 133. Small amount of ketone. Hemoglobin 14.7 and hematocrit 44.4. Patient has been started on IV fluid and insulin drip. Patient presently alert, awake, sitting up in chair. resting on room air. O2 saturation 100%. No acute respiratory distress at rest. Denies chest pain, shortness of breath or cough. Patient afebrile, No Leukocytosis, Blood pressure 147/58, Pulse 67, Respirations 18 Patients recent blood sugur dropped to 64. Recommend to recheck the blood sugur. If blood sugur is low chnage I/V fluids to D5W. Patient is on Lovenox, Famotidine, Brovanna/Budesonide aerosol treatments, I/V fluids NSS, and Insulin. Objective Vital Signs - 12hr 12/05/21 12/05/21 12/05/21 08:00 08:13 10:00 Temperature 97.4 F L Pulse Rate 63 Pulse Rate [ 65 Anterior Bilateral Throughout] Pulse Rate [ 67 Bilateral] Pulse Rate [ 68 From Monitor] Pulse Rate [ 68 Left Radial] Respiratory 14 Rate Respiratory 17 Rate [Anterior Bilateral Throughout] Respiratory 18 Rate [Bilateral ] Blood Pressure 143/61 O2 Sat by Pulse 100 98 Oximetry 12/05/21 12/05/21 16:40 18:00 Temperature Pulse Rate 59 L 63 Pulse Rate [ Anterior Bilateral Throughout] Pulse Rate [ Bilateral] Pulse Rate [ From Monitor] Pulse Rate [ Left Radial] Respiratory Rate Respiratory Rate [Anterior Bilateral Throughout] Respiratory Rate [Bilateral ] Blood Pressure 147/57 O2 Sat by Pulse 100 Oximetry Constitutional: no acute distress, alert Eyes: non-icteric ENT: oropharynx moist Neck: supple, no lymphadenopathy, no JVD Effort: normal Ascultation: Bilateral: diminished breath sounds, rhonchi Percussion: Bilateral: not dull Cardiovascular: regular rate and rhythm Gastrointestinal: normoactive bowel sounds Integumentary: normal Extremities: no cyanosis, no edema, pulses normal, no ischemia or petechiae Neurologic: non-focal exam (grossly), pupils equal and round, CN II-XII normal Psychiatric: mood appropriate, depressed CBC and BMP: 12/01/21 05:02 12/03/21 07:24 Abnormal lab findings: Abnormal Labs 11/30/21 11/30/21 11/30/21 01:04 01:04 05:28 Hgb 14.7 H Hct 44.4 H Lymph % (Auto) 12.1 L Lymph # (Auto) 0.7 L Seg Neutrophils % 80.1 H Sodium 133 L Potassium 5.1 H Chloride 91.7 L Glucose 720 H* POC Glucose 471 H Hemoglobin A1c Magnesium Cholesterol LDL Cholesterol Direct Vitamin B12 TSH 11/30/21 11/30/21 11/30/21 06:28 07:29 08:03 Hgb Hct Lymph % (Auto) Lymph # (Auto) Seg Neutrophils % Sodium Potassium Chloride Glucose 302 H POC Glucose 423 H 375 H Hemoglobin A1c Magnesium 1.60 L Cholesterol LDL Cholesterol Direct Vitamin B12 TSH 11/30/21 11/30/21 11/30/21 08:31 09:41 10:36 Hgb Hct Lymph % (Auto) Lymph # (Auto) Seg Neutrophils % Sodium Potassium Chloride Glucose POC Glucose 319 H 180 H 127 H Hemoglobin A1c Magnesium Cholesterol LDL Cholesterol Direct Vitamin B12 TSH 11/30/21 11/30/21 11/30/21 11:27 12:26 15:12 Hgb Hct Lymph % (Auto) Lymph # (Auto) Seg Neutrophils % Sodium Potassium Chloride Glucose POC Glucose 117 H 114 H 180 H Hemoglobin A1c Magnesium Cholesterol LDL Cholesterol Direct Vitamin B12 TSH 11/30/21 11/30/21 11/30/21 16:41 21:14 23:05 Hgb Hct Lymph % (Auto) Lymph # (Auto) Seg Neutrophils % Sodium 132 L D Potassium Chloride 94.8 L Glucose 430 H POC Glucose 145 H 390 H Hemoglobin A1c Magnesium 1.60 L Cholesterol LDL Cholesterol Direct Vitamin B12 TSH 12/01/21 12/01/21 12/01/21 05:02 05:02 05:12 Hgb 14.6 H Hct 43.4 H Lymph % (Auto) Lymph # (Auto) 1.1 L Seg Neutrophils % Sodium 136 L Potassium Chloride 95.4 L Glucose 390 H POC Glucose Hemoglobin A1c 15.0 H Magnesium Cholesterol LDL Cholesterol Direct Vitamin B12 TSH 12/01/21 12/01/21 12/01/21 05:12 05:12 05:12 Hgb Hct Lymph % (Auto) Lymph # (Auto) Seg Neutrophils % Sodium Potassium Chloride Glucose POC Glucose Hemoglobin A1c Magnesium Cholesterol 274 H LDL Cholesterol Direct 218 H Vitamin B12 1766 H TSH 20.280 H 12/01/21 12/01/21 12/01/21 10:02 16:24 21:20 Hgb Hct Lymph % (Auto) Lymph # (Auto) Seg Neutrophils % Sodium Potassium Chloride Glucose POC Glucose 355 H 370 H 555 H Hemoglobin A1c Magnesium Cholesterol LDL Cholesterol Direct Vitamin B12 TSH 12/02/21 12/02/21 12/02/21 05:25 07:50 11:23 Hgb Hct Lymph % (Auto) Lymph # (Auto) Seg Neutrophils % Sodium 127 L D Potassium Chloride 90.3 L Glucose 380 H POC Glucose 397 H 580 H Hemoglobin A1c Magnesium Cholesterol LDL Cholesterol Direct Vitamin B12 TSH 12/02/21 12/02/21 12/03/21 16:43 21:33 07:24 Hgb Hct Lymph % (Auto) Lymph # (Auto) Seg Neutrophils % Sodium Potassium Chloride Glucose 234 H POC Glucose 498 H 366 H Hemoglobin A1c Magnesium Cholesterol LDL Cholesterol Direct Vitamin B12 TSH 12/03/21 12/03/21 12/03/21 11:55 16:03 20:43 Hgb Hct Lymph % (Auto) Lymph # (Auto) Seg Neutrophils % Sodium Potassium Chloride Glucose POC Glucose 376 H 275 H 331 H Hemoglobin A1c Magnesium Cholesterol LDL Cholesterol Direct Vitamin B12 TSH 12/04/21 12/04/21 12/04/21 11:33 16:15 21:46 Hgb Hct Lymph % (Auto) Lymph # (Auto) Seg Neutrophils % Sodium Potassium Chloride Glucose POC Glucose 254 H 400 H 406 H Hemoglobin A1c Magnesium Cholesterol LDL Cholesterol Direct Vitamin B12 TSH 12/05/21 12/05/21 12/05/21 08:08 09:39 11:42 Hgb Hct Lymph % (Auto) Lymph # (Auto) Seg Neutrophils % Sodium Potassium Chloride Glucose POC Glucose 64 L 173 H 227 H Hemoglobin A1c Magnesium Cholesterol LDL Cholesterol Direct Vitamin B12 TSH 12/05/21 16:42 Hgb Hct Lymph % (Auto) Lymph # (Auto) Seg Neutrophils % Sodium Potassium Chloride Glucose POC Glucose 237 H Hemoglobin A1c Magnesium Cholesterol LDL Cholesterol Direct Vitamin B12 TSH Allied health notes reviewed: nursing
[2021-12-05] MEDS: INSULIN GLARGINE 100 UNITS/ML SUB-Q SCH (21:48)
[2021-12-05] MEDS: SENNOSIDES 8.6 MG TAB PO SCH ×2 (21:48→21:54)
[2021-12-05] MEDS: ENOXAPARIN 40 MG/0.4 ML INJ SUB-Q SCH (21:49)
[2021-12-06] MEDS: INSULIN REGULAR, HUMAN 100 UNITS/1 ML SUB-Q SCH ×2 (08:50→12:30)
[2021-12-06] MEDS: NIFEdipine XL 30 MG TAB PO SCH (09:03)
[2021-12-06] MEDS: FAMOTIDINE 20 MG TAB PO SCH (09:03)
[2021-12-06] MEDS: LEVOTHYROXINE 125 MCG TAB PO SCH (09:03)
[2021-12-06] MEDS: ARFORMOTEROL 15 MCG/2 ML NEBU IH SCH (09:20)
[2021-12-06] MEDS: BUDESONIDE 0.5 MG/2 ML NEBU IH SCH (09:20)
[2021-12-06] MEDS ORDERED: INSULIN REGULAR, HUMAN 100 UNITS/1 ML SUB-Q SCH (11:30)
[2021-12-06 11:49] VITALS: BP 152/59
--- NOTE | 2021-12-06 12:26 | Progress Note ---
Assessment and Plan Hyperglycemia, possible nonketotic hyperosmolar state Acute toxic metabolic encephalopathy S/P GLF Obesity HTN GERD H/O Asthma H/O Migraines Coronary artery disease - follow MRI brain report - supplemental oxygen to keep O2 sats > 90% - bronchodilators (MARTHA) with pulm hygiene per RT - to avoid nephrotoxins, renally dose all medications - mobility protocols to prevent pressure ulcers - PT/OT as tolerated - Wound care per RN/WCT - continue accuchecks with glycemic control per SSI for target blood glucose < 180 mg/dL - tobacco abstinence strongly counseled at the bedside - home oxygen evaluation at discharge - GI & VTE prophylaxis - Flu & pneumovax per protocol - Pulmonary out patient follow up for PFTs and optimization of respiratory status - continue other care per attending / other consultants - prn analgesia per pain score ... re-evaluate in am & prn Subjective Date of service: 12/06/21 Principal diagnosis: Hyperglycemia; AMS; S/P GLF; Obesity; H/O Asthma; CAD; H/O Migraines Interval history: Patient is seen today for: Hyperglycemia; Acute toxic metabolic encephalopathy; S/P GLF; Obesity; H/O Asthma; CAD; H/O Migraines Seen and examined at bedside; 24hour events reviewed; nursing and respiratory care staff consulted; no adverse overnight events reported to me; resting peacefully in bed; Objective Vital Signs - 12hr 12/06/21 12/06/21 12/06/21 03:55 08:00 08:10 Temperature 98.1 F Pulse Rate 63 64 Pulse Rate [ 94 H Anterior Bilateral Throughout] Pulse Rate [ From Monitor] Respiratory 14 16 Rate Respiratory 19 Rate [Anterior Bilateral Throughout] Blood Pressure 167/61 168/62 O2 Sat by Pulse 97 99 Oximetry 12/06/21 12/06/21 10:00 11:47 Temperature 98.0 F Pulse Rate 58 L Pulse Rate [ Anterior Bilateral Throughout] Pulse Rate [ 69 From Monitor] Respiratory 16 Rate Respiratory Rate [Anterior Bilateral Throughout] Blood Pressure 152/59 O2 Sat by Pulse 98 98 Oximetry Constitutional: no acute distress, alert Eyes: non-icteric ENT: oropharynx moist Neck: supple, no lymphadenopathy, no JVD Effort: normal Ascultation: Bilateral: clear, diminished breath sounds, rhonchi Percussion: Bilateral: not dull Cardiovascular: regular rate and rhythm Gastrointestinal: normoactive bowel sounds Integumentary: normal Extremities: no cyanosis, no edema, pulses normal, no ischemia or petechiae Neurologic: non-focal exam (grossly), pupils equal and round, CN II-XII normal Psychiatric: mood appropriate, depressed CBC and BMP: 12/01/21 05:02 12/03/21 07:24 Abnormal lab findings: Abnormal Labs 11/30/21 11/30/21 11/30/21 01:04 01:04 05:28 Hgb 14.7 H Hct 44.4 H Lymph % (Auto) 12.1 L Lymph # (Auto) 0.7 L Seg Neutrophils % 80.1 H Sodium 133 L Potassium 5.1 H Chloride 91.7 L Glucose 720 H* POC Glucose 471 H Hemoglobin A1c Magnesium Cholesterol LDL Cholesterol Direct Vitamin B12 TSH 11/30/21 11/30/21 11/30/21 06:28 07:29 08:03 Hgb Hct Lymph % (Auto) Lymph # (Auto) Seg Neutrophils % Sodium Potassium Chloride Glucose 302 H POC Glucose 423 H 375 H Hemoglobin A1c Magnesium 1.60 L Cholesterol LDL Cholesterol Direct Vitamin B12 TSH 11/30/21 11/30/21 11/30/21 08:31 09:41 10:36 Hgb Hct Lymph % (Auto) Lymph # (Auto) Seg Neutrophils % Sodium Potassium Chloride Glucose POC Glucose 319 H 180 H 127 H Hemoglobin A1c Magnesium Cholesterol LDL Cholesterol Direct Vitamin B12 TSH 11/30/21 11/30/21 11/30/21 11:27 12:26 15:12 Hgb Hct Lymph % (Auto) Lymph # (Auto) Seg Neutrophils % Sodium Potassium Chloride Glucose POC Glucose 117 H 114 H 180 H Hemoglobin A1c Magnesium Cholesterol LDL Cholesterol Direct Vitamin B12 TSH 11/30/21 11/30/21 11/30/21 16:41 21:14 23:05 Hgb Hct Lymph % (Auto) Lymph # (Auto) Seg Neutrophils % Sodium 132 L D Potassium Chloride 94.8 L Glucose 430 H POC Glucose 145 H 390 H Hemoglobin A1c Magnesium 1.60 L Cholesterol LDL Cholesterol Direct Vitamin B12 TSH 12/01/21 12/01/21 12/01/21 05:02 05:02 05:12 Hgb 14.6 H Hct 43.4 H Lymph % (Auto) Lymph # (Auto) 1.1 L Seg Neutrophils % Sodium 136 L Potassium Chloride 95.4 L Glucose 390 H POC Glucose Hemoglobin A1c 15.0 H Magnesium Cholesterol LDL Cholesterol Direct Vitamin B12 TSH 12/01/21 12/01/21 12/01/21 05:12 05:12 05:12 Hgb Hct Lymph % (Auto) Lymph # (Auto) Seg Neutrophils % Sodium Potassium Chloride Glucose POC Glucose Hemoglobin A1c Magnesium Cholesterol 274 H LDL Cholesterol Direct 218 H Vitamin B12 1766 H TSH 20.280 H 12/01/21 12/01/21 12/01/21 10:02 16:24 21:20 Hgb Hct Lymph % (Auto) Lymph # (Auto) Seg Neutrophils % Sodium Potassium Chloride Glucose POC Glucose 355 H 370 H 555 H Hemoglobin A1c Magnesium Cholesterol LDL Cholesterol Direct Vitamin B12 TSH 12/02/21 12/02/21 12/02/21 05:25 07:50 11:23 Hgb Hct Lymph % (Auto) Lymph # (Auto) Seg Neutrophils % Sodium 127 L D Potassium Chloride 90.3 L Glucose 380 H POC Glucose 397 H 580 H Hemoglobin A1c Magnesium Cholesterol LDL Cholesterol Direct Vitamin B12 TSH 12/02/21 12/02/21 12/03/21 16:43 21:33 07:24 Hgb Hct Lymph % (Auto) Lymph # (Auto) Seg Neutrophils % Sodium Potassium Chloride Glucose 234 H POC Glucose 498 H 366 H Hemoglobin A1c Magnesium Cholesterol LDL Cholesterol Direct Vitamin B12 TSH 12/03/21 12/03/21 12/03/21 11:55 16:03 20:43 Hgb Hct Lymph % (Auto) Lymph # (Auto) Seg Neutrophils % Sodium Potassium Chloride Glucose POC Glucose 376 H 275 H 331 H Hemoglobin A1c Magnesium Cholesterol LDL Cholesterol Direct Vitamin B12 TSH 12/04/21 12/04/21 12/04/21 11:33 16:15 21:46 Hgb Hct Lymph % (Auto) Lymph # (Auto) Seg Neutrophils % Sodium Potassium Chloride Glucose POC Glucose 254 H 400 H 406 H Hemoglobin A1c Magnesium Cholesterol LDL Cholesterol Direct Vitamin B12 TSH 12/05/21 12/05/21 12/05/21 08:08 09:39 11:42 Hgb Hct Lymph % (Auto) Lymph # (Auto) Seg Neutrophils % Sodium Potassium Chloride Glucose POC Glucose 64 L 173 H 227 H Hemoglobin A1c Magnesium Cholesterol LDL Cholesterol Direct Vitamin B12 TSH 12/05/21 16:42 Hgb Hct Lymph % (Auto) Lymph # (Auto) Seg Neutrophils % Sodium Potassium Chloride Glucose POC Glucose 237 H Hemoglobin A1c Magnesium Cholesterol LDL Cholesterol Direct Vitamin B12 [facility] notes reviewed: nursing
[2021-12-06] MEDS ORDERED: FUROSEMIDE 40 MG/4 ML INJ IV NR (14:00)
--- NOTE | 2021-12-06 15:22 | Discharge Summary ---
Providers - Providers Date of Admission: 11/30/21 03:54 Date of discharge: 12/06/21 Attending physician: MARILOU BONDS MD 11/30/21 03:54 Consult to Dietitian/Nutrition [CONS] Routine Physician Instructions: Reason For Exam: Reason for Consult: Diet education Consult to Physician [CONS] Routine Comment: Consulting Provider: DANIELA العراقي Physician Instructions: Reason For Exam: Hyperglycemia 11/30/21 12:35 Speech Therapy Evaluation and Treat [CONS] Stat Reason For Exam: delayed swallowing 11/30/21 13:16 Consult to Physician [CONS] Routine Comment: Consulting Provider: JAVID SMITH Physician Instructions: Reason For Exam: Acute Encephalopathy 11/30/21 15:39 Occupational Therapy Evaluate and Treat [CONS] Routine Comment: Reason For Exam: Debility Physical Therapy Evaluation and Treat [CONS] Routine Comment: Reason For Exam: Multiple falls in the home with unsteady gait. 12/05/21 16:10 Consult to Case Management [CONS] Routine Services Needed at Discharge: Other Notified:: immigration case worker Additional Physician Instructions: subacute rehab Primary care physician: HAND CULTIVATOR Hospitalization Reason for admission: Diabetic ketoacidosis Condition: Stable Pertinent studies: Reviewed. Procedures: None. Hospital course: Patient is a 76-year-old female past medical history of hypertension, GERD, insulin-dependent type 2 diabetes mellitus, migraines, and asthma who presented after being disoriented, falling, and hitting the back of her head. EMS was called, and she was found to have a blood glucose >500. In the ED, labs revealed a blood glucose of 720 and sodium of 133. The patient was initiated on an insulin drip with IV fluids, and she was transferred to the ICU for further management. The patient was eventually transitioned to subcutaneous insulin and transferred to the floor. CT head without contrast was unremarkable in addition to MRI brain and carotid Doppler ultrasounds. Neurology was consulted for further assistance. Physical therapy was also consulted, and they recommended SNF placement. Patient endorsed not taking her antihypertensives, and she was reinitiated on them. During her hospitalization, she was found to have a TSH of 20. She was then initiated on levothyroxine (at her home dose) as the patient was not taking it. The patient is family refused SNF, and the patient will be discharging home with home health PT. Patient is medically ready for discharge. Disposition: 01 HOME / SELF CARE / HOMELESS Final Discharge Diagnosis (Prints w/discharge instructions): Diabetic ketoacidosis, insulin-dependent type 2 diabetes mellitus with hyperglycemia, ground-level fall, hypertension, hyponatremia, hypothyroidism, hypomagnesemia, metabolic acidosis Time spent for discharge: 45 min Core Measure Documentation - Palliative Care Palliative Care/ Comfort Measures: Not Applicable - Core Measures Any of the following diagnoses?: none Exam - Constitutional Vitals: Temp Pulse Resp BP Pulse Ox 98.0 F 58 L 16 152/59 98 12/06/21 11:47 12/06/21 11:47 12/06/21 11:47 12/06/21 11:47 12/06/21 11:47 General appearance: Present: no acute distress, well-nourished - EENT Eyes: Present: PERRL, EOM intact ENT: hearing intact, clear oral mucosa, dentition normal - Neck Neck: Present: supple, normal ROM - Respiratory Respiratory effort: normal Respiratory: bilateral: CTA - Cardiovascular Rhythm: regular Heart Sounds: Present: S1 & S2 - Extremities Extremities: no ischemia, pulses intact, pulses symmetrical, normal temperature, normal color, Full ROM Extremity abnormal: edema (Trace edema bilateral lower extremities to ankles) Peripheral Pulses: within normal limits - Abdominal General gastrointestinal: Present: soft, non-tender, non-distended, normal bowel sounds Female genitourinary: Present: deferred - Rectal Rectal Exam: deferred - Integumentary Integumentary: Present: clear, warm, dry - Musculoskeletal Musculoskeletal: generalized weakness - Psychiatric Psychiatric: appropriate mood/affect, intact judgment & insight, memory intact, cooperative - Neurologic Neurologic: CNII-XII intact, moves all extremities - Allied Health Allied health notes reviewed: nursing Plan Activity: advance as tolerated Diet: low salt, diabetic Additional Instructions: Patient is a 76-year-old female past medical history of hypertension, GERD, insulin-dependent type 2 diabetes mellitus, migraines, and asthma who presented after being disoriented, falling, and hitting the back of her head. EMS was called, and she was found to have a blood glucose >500. In the ED, labs revealed a blood glucose of 720 and sodium of 133. The patient was initiated on an insulin drip with IV fluids, and she was transferred to the ICU for further management. The patient was eventually transitioned to subcutaneous insulin and transferred to the floor. CT head without contrast was unremarkable in addition to MRI brain and carotid Doppler ultrasounds. Neurology was consulted for further assistance. Physical therapy was also consulted, and they recommended SNF placement. Patient endorsed not taking her antihypertensives, and she was reinitiated on them. During her hospitalization, she was found to have a TSH of 20. She was then initiated on levothyroxine (at her home dose) as the patient was not taking it. The patient is family refused SNF, and the patient will be discharging home with home health PT. Patient is medically ready for discharge. Care Plan Goals: Patient is medically clear for discharge. Assessment: Patient is a 76-year-old female past medical history of hypertension, GERD, insulin-dependent type 2 diabetes mellitus, migraines, and asthma who presented after being disoriented, falling, and hitting the back of her head. EMS was called, and she was found to have a blood glucose >500. In the ED, labs revealed a blood glucose of 720 and sodium of 133. The patient was initiated on an insulin drip with IV fluids, and she was transferred to the ICU for further management. The patient was eventually transitioned to subcutaneous insulin and transferred to the floor. CT head without contrast was unremarkable in addition to MRI brain and carotid Doppler ultrasounds. Neurology was consulted for further assistance. Physical therapy was also consulted, and they recommended SNF placement. Patient endorsed not taking her antihypertensives, and she was reinitiated on them. During her hospitalization, she was found to have a TSH of 20. She was then initiated on levothyroxine (at her home dose) as the patient was not taking it. The patient is family refused SNF, and the pat ient will be discharging home with home health PT. Patient is medically ready for discharge. Follow up with: PRIMARY MD PRESTON [Primary Care Provider] - 3-5 Days DORITA MANCUSO MD [Staff Physician] - 7 Days Prescriptions: Insulin Glargine [Lantus VIAL] 40 units SUB-Q QHS #1 vial Sennosides Tab [Senokot] 17.2 mg PO QHS #30 tablet NIFEdipine XL [Procardia Xl] 30 mg PO QDAY #30 tablet
== END 2021-12-06 17:08 | disposition home health service (06) | DRG 637 ==
LOC: ED 00:32 → CC1 03:54 → 4A 12-01 00:13
PROVIDERS: ADMIT Internal Medicine Geriatric Medicine; ATTEND Student in an Organized Health Care Education/Training Program
DX: E11.10 Type 2 diabetes mellitus with ketoacidosis without coma (principal); G92.8 Other toxic encephalopathy; E87.1 Hypo-osmolality and hyponatremia; Z20.822 Contact with and (suspected) exposure to COVID-19; W19.XXXA Unspecified fall, initial encounter; I25.10 Atherosclerotic heart disease of native coronary artery without angina pectoris; E03.9 Hypothyroidism, unspecified; E83.42 Hypomagnesemia; Z88.8 Allergy status to other drugs, medicaments and biological substances; W18.39XA Other fall on same level, initial encounter; Y93.89 Activity, other specified; Y92.89 Other specified places as the place of occurrence of the external cause; Y99.8 Other external cause status; Z79.4 Long term (current) use of insulin; Z79.899 Other long term (current) drug therapy; Z95.1 Presence of aortocoronary bypass graft; I11.0 Hypertensive heart disease with heart failure; I50.9 Heart failure, unspecified; K21.9 Gastro-esophageal reflux disease without esophagitis; M19.90 Unspecified osteoarthritis, unspecified site; J45.909 Unspecified asthma, uncomplicated; Z98.51 Tubal ligation status; G43.909 Migraine, unspecified, not intractable, without status migrainosus; E66.9 Obesity, unspecified; Z68.27 Body mass index [BMI] 27.0-27.9, adult
CPT/HCPCS: 36415; 70450; 70551; 71045; 80048; 80053; 80061; 81001; 82010; 82550; 82553; 82607; 82962; 83036; 83735; 84100; 84443; 84484; 85025; 93005; 93880; 94640; 95819; 96374; 97129; 97130; 99285; G0378; J3480; J3490; Q9967; J0360; J1650; J1815; J1940; J3475; J7030; J7040; J7120; U0003